=== PATIENT | male | born 1960 | race Caucasian/White ===

== ENCOUNTER → 2016-07-03 | Outpatient (CLI) | payer MEDICARE, OTHER ==
[~2016-07-03] MED LIST: ACYC1CAP8 PO; ASPI1TAB PO; ASPI32ECTA PO; ATOR1TAB18 PO; ATOR1TAB21 PO; CHLO25TA PO; COLA100C PO; D 202000 PO; DEXA4TA PO; DOCU100C PO; DOCU10CA PO; FAMC250T3 PO; FLUO0.0216 TOP; HYDR12.55 PO; LEVO100T5 PO; LEVO125T3 PO; MIDO10TA PO; MIDO25TA PO; MIRA3350 PO; MIRT30TA3 PO; MORP-38 PO; MORP100T40 PO; MULTCAP PO; OMEP20CA3 PO; ONDA1TAB16 PO; PROC10TA PO; REFR0.5D8 OU; REME15TA2 PO; ROXI1TAB2 PO; SENN-22 PO; SENN8.6C PO; SENN8.6T10 PO; SENN8.6T7 PO; SILD50TA PO; TRIA1CR TOP; VELC3.5I IV; VIAG100T PO; VITA10002 PO; VITA200038 PO; VITMTA PO; ZOFR8TAB PO; [UNRECOGNIZED DRUG - CODE] TOP; [UNRECOGNIZED DRUG - OTHER] PO; [UNRECOGNIZED DRUG - OTHER] PO
--- NOTE | 2016-07-03 16:16 | REP ---
Chest x-ray: Two views. History: Chills without fever. Amyloidosis . Comparison chest radiograph April 02, 2016. Findings: Chest radiograph demonstrates a minimal dextroconvex thoracic curvature. No paravertebral soft-tissue mass is seen. No other bony abnormality is observed. The lungs are well inflated and clear. The pleural angles are sharp. Heart size is normal. Pulmonary vasculature is not increased. Impression: No active disease. Signed by Juan Manuel Rebollar MD 07/03/2016 04:33 P
== END ==
LOC: M ADAMS 14:24
PROVIDERS: ATTEND Family Medicine
DX: E85.9 Amyloidosis, unspecified (principal); R68.83 Chills (without fever)

== ENCOUNTER → 2016-07-03 | Outpatient (CLI) | payer MEDICARE, BC, OTHER ==
[~2016-07-03] MED LIST changes: -COLA100C PO; +COLA100C3 PO
[2016-07-03 16:01] LABS: MEAN CORPUSCULAR HEMOGLOBIN 30.5 pg (27.0-33.0); MEAN CORPUSCULAR HGB CONC 32.5 g/dl (32.0-36.5); MEAN CORPUSCULAR VOLUME 93.7 fl (80.0-96.0); RED CELL DISTRIBUTION WIDTH 15.8 % (11.5-14.5)
[2016-07-03 16:19] LABS: INR 1.02
[2016-07-03 16:28] LABS: ALBUMIN 1.7 GM/DL (3.2-5.2); ALBUMIN/GLOBULIN RATIO 0.61 (1.00-1.93); ALKALINE PHOSPHATASE 427 U/L (45-117); ALT/SGPT 52 U/L (12-78); ANION GAP 3 MEQ/L (8-16); AST/SGOT 57 U/L (15-37); BILIRUBIN,TOTAL 0.3 MG/DL (0.2-1.0); BLOOD UREA NITROGEN 12 MG/DL (7-18); CARBON DIOXIDE LEVEL 34 MEQ/L (21-32); CHLORIDE LEVEL 105 MEQ/L (98-107); CHOLESTEROL LEVEL 193 MG/DL (<200); CREATININE FOR GFR 0.94 MG/DL (0.70-1.30); GLOMERULAR FILTRATION RATE > 60.0 (>56); GLUCOSE, FASTING 109 MG/DL (70-105); POTASSIUM SERUM 4.5 MEQ/L (3.5-5.1); SODIUM LEVEL 142 MEQ/L (136-145); TOTAL PROTEIN 4.5 GM/DL (6.4-8.2); TRIGLYCERIDES LEVEL 212 MG/DL (<150)
[2016-07-03 17:40] LABS: MICROSCOPIC INDICATED? MAN YES (NO)
[2016-07-03 17:43] LABS: BACTERIA, URINE NONE SEEN; SQUAMOUS EPITHELIAL CELL URINE SMALL AMOUNT /hpf (SMALL AMT)
[2016-07-03 17:44] LABS: MICROSCOPIC EXAM PERFORMED
== END ==
LOC: M LAB 15:03
PROVIDERS: ATTEND Family Medicine
DX: E85.9 Amyloidosis, unspecified (principal); R74.8 Abnormal levels of other serum enzymes; E13.29 Other specified diabetes mellitus with other diabetic kidney complication; E78.5 Hyperlipidemia, unspecified; R68.83 Chills (without fever); Z79.899 Other long term (current) drug therapy
CPT/HCPCS: 36415; 71020; 80053; 80061; 81000; 82306; 83036; 85027; 85610; 87040; 87086; G0463

== ENCOUNTER → 2016-07-03 | Outpatient (REF) | payer MEDICARE, OTHER ==
[~2016-07-03] MED LIST changes: +COLA100C PO; -COLA100C3 PO
== END ==
LOC: M SFHCADAM 13:45
PROVIDERS: ATTEND Family Medicine
DX: E85.9 Amyloidosis, unspecified (principal); R74.8 Abnormal levels of other serum enzymes; E13.29 Other specified diabetes mellitus with other diabetic kidney complication; E78.5 Hyperlipidemia, unspecified; E55.9 Vitamin D deficiency, unspecified; R68.83 Chills (without fever); Z53.8 Procedure and treatment not carried out for other reasons

== ENCOUNTER → 2016-07-22 | Outpatient (REF) | payer MEDICARE, OTHER ==
[~2016-07-22] MED LIST changes: -COLA100C PO; +COLA100C3 PO
[2016-07-22 12:33] LABS: ANION GAP 8 MEQ/L (8-16); BLOOD UREA NITROGEN 11 MG/DL (7-18); CALCIUM LEVEL 8.8 MG/DL (8.5-10.1); CARBON DIOXIDE LEVEL 29 MEQ/L (21-32); CHLORIDE LEVEL 105 MEQ/L (98-107); CREATININE FOR GFR 0.95 MG/DL (0.70-1.30); GLOMERULAR FILTRATION RATE > 60.0 (>56); GLUCOSE, FASTING 99 MG/DL (70-105); POTASSIUM SERUM 4.7 MEQ/L (3.5-5.1); SODIUM LEVEL 142 MEQ/L (136-145)
[2016-07-22 12:54] LABS: CORTISOL AM 6.4 UG/DL (4.3-22.4)
== END ==
LOC: M SFHCPLAZ 08:51
PROVIDERS: ATTEND Family Medicine
DX: E27.40 Unspecified adrenocortical insufficiency (principal)

== ENCOUNTER 2016-08-28 06:56 | Inpatient (IN) | payer MEDICARE, BC, OTHER ==
[~2016-08-28] VITALS: Ht 172.7 cm; Wt 66.2 kg
[2016-08-28] MEDS ORDERED: NS 1,000 ML IV ONE ×2 (07:15→19:15)
--- NOTE | 2016-08-28 08:12 | REP ---
Portable chest x-ray: Single view. History: Altered mental status. Comparison radiographs April 02, 2016. Findings: EKG monitoring electrodes overlie the chest. Lungs are well inflated and clear. Heart size is normal. Pulmonary vasculature is not increased. Pleural angles are sharp. No significant bony abnormality is seen. Impression: Negative portable chest x-ray. Signed by Juan Manuel Rebollar MD 08/28/2016 09:05 A
[2016-08-28 08:22] LABS: ABG BASE EXCESS -0.6 (-2.0-2.0); ABG HCO3 23.6 MEQ/L (22.0-26.0); ABG PARTIAL PRESSURE CO2 37.8 mmHg (35.0-45.0); ABG PARTIAL PRESSURE O2 84.4 mmHg (75.0-100.0); ABG STANDARD HCO3 23.9 MEQ/L (22.0-26.0); ABG TOTAL CO2 24.8 MEQ/L (22.0-29.0); ABG pH (ARTERIAL) 7.414 UNITS (7.350-7.450)
[2016-08-28 08:38] LABS: BASO % 0.2 % (0.0-1.0); EOS % 0.3 % (0.0-3.0); LARGE UNSTAINED CELL # 0.1 K/mm3 (0.0-0.4); LARGE UNSTAINED CELL % 0.8 % (0.0-4.0); LYMPH # 0.9 K/mm3 (1.5-4.5); LYMPH % 6.9 % (24.0-44.0); MEAN CORPUSCULAR HEMOGLOBIN 31.5 pg (27.0-33.0); MEAN CORPUSCULAR HGB CONC 33.1 g/dl (32.0-36.5); MEAN CORPUSCULAR VOLUME 95.3 fl (80.0-96.0); MONO # 0.4 K/mm3 (0.0-0.8); MONO % 3.4 % (0.0-5.0); NEUTROPHILS # 10.7 K/mm3 (1.8-7.7); NEUTROPHILS % 88.3 % (36.0-66.0); PLATELET COUNT, AUTOMATED 510 k/mm3 (150-450); RED CELL DISTRIBUTION WIDTH 15.8 % (11.5-14.5); WHITE BLOOD COUNT 12.1 K/mm3 (4.0-10.0)
[2016-08-28 08:54] LABS: ALBUMIN 1.1 GM/DL (3.2-5.2); ALBUMIN/GLOBULIN RATIO 0.29 (1.00-1.93); ALKALINE PHOSPHATASE 486 U/L (45-117); ALT/SGPT 69 U/L (12-78); ANION GAP 9 MEQ/L (8-16); AST/SGOT 58 U/L (15-37); BILIRUBIN,DIRECT 0.2 MG/DL (0.0-0.2); BILIRUBIN,TOTAL 0.4 MG/DL (0.2-1.0); BLOOD UREA NITROGEN 13 MG/DL (7-18); CALCIUM LEVEL 7.9 MG/DL (8.5-10.1); CARBON DIOXIDE LEVEL 27 MEQ/L (21-32); CHLORIDE LEVEL 107 MEQ/L (98-107); CREATININE FOR GFR 1.05 MG/DL (0.70-1.30); GLOMERULAR FILTRATION RATE > 60.0 (>56); GLUCOSE, FASTING 126 MG/DL (70-105); POTASSIUM SERUM 3.2 MEQ/L (3.5-5.1); SODIUM LEVEL 143 MEQ/L (136-145); TOTAL PROTEIN 4.9 GM/DL (6.4-8.2)
[2016-08-28] MEDS ORDERED: NS 500 ML IV ONE (09:00)
[2016-08-28] MEDS: FAMCICLOVIR 125 MG PO SCH ×2 (09:00→21:44)
--- NOTE | 2016-08-28 09:01 | REP ---
CT BRAIN WITHOUT CONTRAST: 08/28/2016. Comparison: MRI brain 03/03/2015. Clinical History: Altered mental status. Findings: Ventricles are midline, symmetric and the without dilatation or displacement. Basal ganglia symmetric and grossly normal. There are a few tiny calcifications which are benign findings in this age group. There is some mild atrophy with ventricular size proportionate. This is greater than I would expect for the given age. There are some subtle calcifications in the right cerebellar hemisphere corresponding to the developmental venous anomaly seen on the MRI in 2014. No cerebral or cerebellar mass, mass effect or acute infarct. No hemorrhage. No extra-axial fluid. Brainstem unremarkable. The skull base and calvarium show no fracture or focal lesion. Visualized sinuses and mastoids are clear. Impression: 1. Mild atrophy without evidence of acute infarct, hemorrhage, mass or mass effect. 2. Calcifications in the right cerebellar hemisphere corresponding to the developmental venous anomaly seen on previous MRI. 3. Sinuses, mastoids, skull base and calvarium intact. Basal cisterns preserved. Signed by Jt Zaman MD 08/28/2016 12:25 P
[2016-08-28] MEDS ORDERED: MEGE20TA PO (09:57)
[2016-08-28] MEDS ORDERED: ASPI1TAB PO (10:02)
[2016-08-28] MEDS ORDERED: PERCOCET 5MG/325MG TAB PO ONE (12:30)
[2016-08-28 13:01] VITALS: BP 77/50
[2016-08-28] MEDS: NS 1,000 ML IV SCH ×3 (13:36→21:36)
[2016-08-28] MEDS: SENOKOT S TAB PO SCH ×2 (13:36→22:06)
--- NOTE | 2016-08-28 13:58 | HPEPDOC ---
General Date of Admission August 28, 2016 at 11:19 Primary Care Physician: Keon Triplett MD Attending Physician: RONALDO BOSE MD Chief Complaint The patient is a 56-year-old male admitted with a reason for visit of Hypotension. Source: Patient Exam Limitations: No limitations Timing/Duration: 24 hours Severity: Moderate Associated Symptoms: Loss of appetite History of Present Illness This is a 56-year-old patient Dr. 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 In the ER, he was reportedly tachycardic a lactic acidosis, mild leukocytosis. His mentation and vital signs improved with 1.5 L of IV fluids, although the ER felt he needed further resuscitation and evaluation. Patient has been eating and drinking very poorly at home. He reports that he is on Remeron to help with his appetite, but this is minimally effective. He has not tried higher doses. He has plans to see a specialist in [place] next week. His only concern today is with left upper quadrant abdominal pain, which is similar to the last time he missed a dose of his narcotics. He states that he last stool 2 days ago. He denies any nausea, vomiting, diarrhea, fevers, or chills. He does endorse night sweats. At baseline , he is dependent on a wheelchair, and is very weak. Home Medications Scheduled Aspirin (Aspirin 81) 81 Mg Tab, 81 MG PO DAILY, (Reported) Atorvastatin Calcium (Atorvastatin Calcium) 80 Mg Tab, 80 MG PO QPM, (Reported) Cholecalciferol (Vitamin D-3) 2,000 Unit Tab, 2,000 UNIT PO DAILY, (Reported) Cyanocobalamin (Vitamin B-12) 1,000 Mcg Tab, 1,000 MCG PO DAILY, (Reported) Docusate Sodium (Colace) 100 Mg Cap, 100 MG PO BID, (Reported) Famciclovir (Famciclovir) 250 Mg Tab, 250 MG PO BID, (Reported) Levothyroxine Sodium (Synthroid) 125 Mcg Tab, 125 MCG PO DAILY, (Reported) Megestrol Acetate (Megestrol Acetate) 20 Mg Tab, 20 MG PO BID, (Reported) Midodrine HCl (Midodrine HCl) 10 Mg Tab, 10 MG PO TID, (Reported) Mirtazapine (Mirtazapine) 30 Mg Tab, 30 MG PO QHS, (Reported) Morphine Sulfate (Morphine Sulfate ER) 15 Mg Tab, 30 MG PO QAM, (Reported) Morphine Sulfate (Morphine Sulfate ER) 15 Mg Tab, 15 MG PO QPM, (Reported) Multivitamins *[facility] STOCKED* (Thera M Plus *[facility] STOCKED*) 1 Tab Tab, 1 TAB PO DAILY, (Reported) Omeprazole (Omeprazole) 20 Mg Cap, 20 MG PO BID, (Reported) Ondansetron HCl (Ondansetron HCl) 8 Mg Tab, 8 MG PO BID, (Reported) Senna (Senna Lax) 8.6 Mg Tab, 1 TAB PO QHS, (Reported) Scheduled PRN (Fluorouracil) 0.5 % Cre, 0.5 % TOP DAILY PRN for RASH/ITCHING, (Reported) APPLY TO HANDS AND ARMS (Mometasone Furoate) 0.1 % Cre, 0.1 % TOP DAILY PRN for RASH/ITCHING, (Reported ) APPLY TO HANDS AND ARMS Hydrochlorothiazide (Hydrochlorothiazide) 12.5 Mg Tab, 12.5 MG PO DAILY PRN for LEG SWELLING, (Reported) Oxycodone HCl (Roxicodone) 5 Mg Tab, 10 MG PO Q4H PRN for PAIN, (Reported) Polyethylene Glycol (Miralax) 1 Pow Pow, 17 GM PO BID PRN for CONSTIPATION, ( Reported) Prochlorperazine Maleate (Prochlorperazine Maleate) 10 Mg Tab, 10 MG PO Q6H PRN for NAUSEA OR VOMITING, (Reported) Triamcinolone Acet (Triamcinolone Acetonide 0.1% Crm) 1 Dose/15 Gm Cr, 0 TOP DAILY PRN for RASH, (Reported) APPLY TO HANDS AND ARMS Allergies Coded Allergies: No Known Drug Allergy (Unverified Allergy, Unknown, 07/14/12) Past Medical History Medical History 1. Amyloidosis, light chain type, status post high-dose chemotherapy and stem cell transplant 2. T2 DM 3. Hypertension 4. Chronic low back pain 5. Hyperlipidemia 6. Nephrotic syndrome 7. Grade 1 diastolic dysfunction Surgical History 1. L5-S1 fusion at [facility], 1999 2. Colonoscopy, 2010 3. EGD/colonoscopy, 2012 Family History Father: DM, CVA, ETOH Mother: DM SD 49y/o; had DM-related ESRD Maternal uncle: diabetes, type II Maternal aunt: diabetes, type II Social History * Smoker: non-smoker Alcohol: Denies Drugs: denies Recent Travel/Sick Contacts: Denies: Recent travel, Recent sick contacts Psychosocial History: No pertinent psych hx Review of Symptoms Constitutional: Reports: Malaise, Night Sweats, Weakness, Fatigue, Weight Loss , Denies: Chills, Fever ENT: Denies: Head Aches Skin: Denies: Rash Pulmonary: Denies: Dyspnea, Cough Cardiovascular: Denies: Chest Pain, Palpitations Gastrointestinal: Reports: Abdominal Pain, Denies: Nausea, Vomiting, Diarrhea, Constipation, Melena Genitourinary: Denies: Dysuria Hematologic: Denies: Bruising, Bleeding Excessively Musculoskeletal: Reports: Other Symptoms (chronic pain) Neurological: Denies: Weakness, Numbness, Change in speech, Confusion Psych: Reports: Mood Normal Physical Examination General Exam: Positive: Alert, Cooperative, No Acute Distress, Other (cachectic , chronically ill-appearing) Eye Exam: Positive: PERRLA, Conjunctiva & lids normal, Negative: Sclera icteric ENT Exam: Positive: Atraumatic, Mucous membr. moist/pink Neck Exam: Positive: Supple, +2 carotid pulse wo bruit, Negative: JVD, thyromegaly, Lymphadenopathy Chest Exam: Positive: Clear to auscultation, Normal air movement, Negative: Rales, Rhonchi, Wheezing Heart Exam: Positive: Rate Normal, Regular Rhythm, Normal S1, Normal S2, Negative: Murmurs Abdomen Exam: Positive: Normal bowel sounds, Soft, Tenderness (mild left upper quadrant tenderness without guarding or rebound), Negative: Mass, Hernia Extremity Exam: Negative: Clubbing, Cyanosis, Edema Skin Exam: Negative: Nl turgor and temperature (cool and with decreased turgor) , Rash Neuro Exam: Positive: Sensation Intact Psych Exam: Positive: Mental status NL, Mood NL (although somewhat agitated), Oriented x 3 Vital Signs Vital Signs Date Time Temp Pulse Resp B/P (MAP) Pulse Ox O2 Delivery O2 Flow Rate FiO2 08/28/16 12:55 97.8 120 18 88/53 (65) 96 08/28/16 07:20 Room Air Laboratory Data Labs 24H Laboratory Tests 2 08/28/16 07:04: Blood Gas Bicarbonate Standard 23.9, Arterial Blood pH 7.414, Arterial Blood Partial Pressure CO2 37.8, Arterial Blood Partial Pressure O2 84.4, Arterial Blood Total CO2 24.8, Arterial Blood HCO3 23.6, Arterial Blood Base Excess -0.6 , Arterial Blood Oxygen Saturation 96.1 08/28/16 08:09: Bedside Glucose (Misc Panel) 111H 08/28/16 08:10: White Blood Count 12.1H, Red Blood Count 4.52, Hemoglobin 14.2, Hematocrit 43.0 , Mean Corpuscular Volume 95.3, Mean Corpuscular Hemoglobin 31.5, Mean Corpuscular Hemoglobin Concent 33.1, Red Cell Distribution Width 15.8H, Platelet Count 510H, Neutrophils (%) (Auto) 88.3H, Lymphocytes (%) (Auto) 6.9L, Monocytes (%) (Auto) 3.4, Eosinophils (%) (Auto) 0.3, Basophils (%) (Auto) 0.2, Neutrophils # (Auto) 10.7H, Lymphocytes # (Auto) 0.9L, Monocytes # (Auto) 0.4, Eosinophils # (Auto) 0.0, Basophils # (Auto) 0.0, Large Unclassified Cells % 0.8 , Large Unclassified Cells # 0.1, Anion Gap 9, Glomerular Filtration Rate > 60.0 , Lactic Acid Level 3.0*H, Calcium Level 7.9L, Aspartate Amino Transf (AST/SGOT ) 58H, Alanine Aminotransferase (ALT/SGPT) 69, Alkaline Phosphatase 486H, Total Bilirubin 0.4, Direct Bilirubin 0.2, Ammonia 24, Total Protein 4.9L, Albumin 1.1L, Albumin/Globulin Ratio 0.29L, Thyroid Stimulating Hormone (TSH) 4.390H 08/28/16 12:31: Lactic Acid Followup at 4 Hours 1.7 CBC/BMP Laboratory Tests 08/28/16 08:10 Red Blood Count 4.52, Mean Corpuscular Volume 95.3, Mean Corpuscular Hemoglobin 31.5, Mean Corpuscular Hemoglobin Concent 33.1, Red Cell Distribution Width 15.8 H, Neutrophils (%) (Auto) 88.3 H, Lymphocytes (%) (Auto) 6.9 L, Monocytes ( %) (Auto) 3.4, Eosinophils (%) (Auto) 0.3, Basophils (%) (Auto) 0.2, Neutrophils # (Auto) 10.7 H, Lymphocytes # (Auto) 0.9 L, Monocytes # (Auto) 0.4 , Eosinophils # (Auto) 0.0, Basophils # (Auto) 0.0 Microbiology Microbiology 08/28/16 Blood Culture, Received Pending Assessment/Plan This is a 56-year-old gentleman seen by Dr. Triplett who presents with dehydration, lactic acidosis, tachycardia, and mild belly pain. Problems (1) Hypotension Status: Acute Problem Text: Patient is normally hypertensive, but was hypotensive prior to volume resuscitation. Patient is asymptomatic. Currently no signs or symptoms of sepsis. White count was mildly elevated, however this may be related to hemoconcentration, as lactate was 3.0 on an admission to the ER, and has now normalized. EKG on admission was unremarkable. Blood cultures are pending. Chest x-ray was unremarkable. Last echocardiogram was 2012, and was normal with the exception of mild diastolic dysfunction. - Patient admitted to [facility] for fluid resuscitation; if his blood pressures remain low or he becomes symptomatic, will transferred to the PCU -Aggressive volume resuscitation -Aggressive nutrition resuscitation (2) Dehydration Status: Acute Problem Text: See above (3) Hypertension Status: Chronic Problem Text: Blood pressures have normalized. Restart home blood pressure medications if patient's pressures begin to rise (4) Abdominal pain Status: Chronic Problem Text: Patient has had similar abdominal pain in the past. He is on a fairly aggressive bowel regimen for significant chronic narcotic use. His abdominal exam is quite benign, and there are no concerns at this time for surgical abdomen. Patient is afebrile. May be related to constipation secondary to chronic narcotics. -Bowel regimen -Consider KUB if not resolving -Fluid resuscitation (5) T2DM (type 2 diabetes mellitus) Status: Chronic Response to Treatment: Stable Problem Text: Currently nondiabetic medications. (6) Chronic pain disorder Status: Chronic Problem Text: Patient is on chronic opiates. 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 However, patient may be best served by getting into his specialist in [place]. (9) Severe protein-calorie malnutrition Problem Text: Dietary consult Plan / VTE VTE Prophylaxis Ordered?: Yes Plan Disposition Possibly home tomorrow if pressures are stable, abdominal pain is resolved RONALDO BOSE MD August 28, 2016 13:58
[2016-08-28] MEDS: ASPIRIN 81 MG ENTERIC TAB PO SCH (14:20)
[2016-08-28] MEDS: LEVOTHYROXINE 0.125 MG TAB (125 MCG) PO SCH (14:21)
[2016-08-28] MEDS: MIRALAX *UNIT DOSE* 17GM PACKET PO PRN ×2 (14:28→14:36)
[2016-08-28] MEDS: MORPHINE 15 MG SA TAB PO SCH ×2 (14:29→22:27)
[2016-08-28] MEDS: OMEPRAZOLE 20 MG CAP PO SCH ×2 (14:30→21:44)
[2016-08-28] MEDS: ONDANSETRON 4 MG TAB (S0181) PO SCH ×2 (14:30→21:45)
[2016-08-28] MEDS: MIDODRINE 5 MG TAB PO SCH ×2 (14:30→17:08)
[2016-08-28] MEDS: HEPARIN SOD (PORCINE) 5000 UNITS/ML VIAL SC SCH ×2 (14:31→22:00)
[2016-08-28] MEDS: oxyCODONE 5MG TAB PO PRN ×2 (17:08→21:10)
[2016-08-28] MEDS ORDERED: MIDODRINE 5 MG TAB PO SCH (18:00)
[2016-08-28 19:10] VITALS: BP 120/82
[2016-08-28] MEDS ORDERED: SENNA 8.6 MG TAB (SENOKOT) PO SCH (21:00)
[2016-08-28] MEDS: ATORVASTATIN 20 MG TAB PO SCH (21:44)
[2016-08-28 21:57] VITALS: BP 108/70
[2016-08-28 22:00] VITALS: BP 108/70
[2016-08-28] MEDS ORDERED: SENOKOT S TAB PO PRN (22:15)
[2016-08-28] MEDS: MIRTAZAPINE 15 MG TAB PO SCH (22:26)
[2016-08-29] VITALS (8 sets, daily range): BP systolic 93–135; BP diastolic 61–98
[2016-08-29] MEDS: oxyCODONE 5MG TAB PO PRN ×3 (04:16→18:08)
[2016-08-29] MEDS: NS 1,000 ML IV SCH ×3 (04:17→21:24)
[2016-08-29] MEDS: LEVOTHYROXINE 0.125 MG TAB (125 MCG) PO SCH (05:50)
[2016-08-29 06:08] LABS: BASO % 0.3 % (0.0-1.0); EOS % 0.4 % (0.0-3.0); LARGE UNSTAINED CELL # 0.2 K/mm3 (0.0-0.4); LARGE UNSTAINED CELL % 1.8 % (0.0-4.0); LYMPH # 1.4 K/mm3 (1.5-4.5); LYMPH % 11.2 % (24.0-44.0); MEAN CORPUSCULAR HEMOGLOBIN 31.2 pg (27.0-33.0); MEAN CORPUSCULAR HGB CONC 33.1 g/dl (32.0-36.5); MEAN CORPUSCULAR VOLUME 94.4 fl (80.0-96.0); MONO # 0.7 K/mm3 (0.0-0.8); NEUTROPHILS # 8.7 K/mm3 (1.8-7.7); NEUTROPHILS % 80.3 % (36.0-66.0); PLATELET COUNT, AUTOMATED 473 k/mm3 (150-450); WHITE BLOOD COUNT 10.8 K/mm3 (4.0-10.0)
[2016-08-29 06:26] LABS: ALBUMIN/GLOBULIN RATIO 0.33 (1.00-1.93); BILIRUBIN,TOTAL 0.2 MG/DL (0.2-1.0); CALCIUM LEVEL 7.1 MG/DL (8.5-10.1); CREATININE FOR GFR 1.32 MG/DL (0.70-1.30); GLOMERULAR FILTRATION RATE 59.7 (>56); POTASSIUM SERUM 3.9 MEQ/L (3.5-5.1)
--- NOTE | 2016-08-29 07:58 | ECGEPIP ---
Stationary ECG Study [facility] - ED Test Date: 2016-08-28 Pat Name: ADRIAN SETH Department: Room: - Gender: M Retail Leader: : 1960 Requested By: CHRISTINE Carter Order Number: [id number] Reading MD: Jessica Merida Measurements Intervals [place] Rate: 113 P: 71 NV: 203 QRS: 66 QRSD: 82 T: 52 QT: 331 QTc: 455 Interpretive Statements SINUS TACHYCARDIA MER DEGREE AV BLOCK NONSPECIFIC T-WAVE ABNORMALITY ABNORMAL RHYTHM ECG INCREASED RATE 06/03/15 Electronically Signed On 08-29-2016 7:58:46 EDT by Jessica Merida
--- NOTE | 2016-08-29 08:14 | IPNPDOC ---
Subjective Date Seen The patient was seen on 08/29/16. Subjective Chief Complaint/HPI The patient is a 56-year-old male admitted with a reason for visit of Hypotension. Events since last encounter patient feels not putting out enough urine. 200 cc in last 12 hours. Cr is elevated. c/o weakness. Constitutional: Denies: Chills, Fever, Night Sweats ENT: Denies: Head Aches, Ear Pain, Dysphagia Skin: Denies: Rash, Lesions, Breakdown Pulmonary: Denies: Dyspnea, Cough Gastrointestinal: Denies: Nausea, Vomiting, Abdominal Pain, Diarrhea, Constipation Genitourinary: Denies: Dysuria, Frequency, Incontinence, Retention Psych: Reports: Mood Normal, Denies: Depression, Memory Issues Objective Physical Examination General Exam: Positive: Alert, Cooperative, No Acute Distress, Other (cachectic , chronically ill-appearing) Eye Exam: Positive: PERRLA, Conjunctiva & lids normal, Negative: Sclera icteric ENT Exam: Positive: Atraumatic, Mucous membr. moist/pink Neck Exam: Positive: Supple, +2 carotid pulse wo bruit, Negative: JVD, thyromegaly, Lymphadenopathy Chest Exam: Positive: Clear to auscultation, Normal air movement, Negative: Rales, Rhonchi, Wheezing Heart Exam: Positive: Rate Normal, Regular Rhythm, Normal S1, Normal S2, Negative: Murmurs Abdomen Exam: Positive: Normal bowel sounds, Soft, Tenderness (mild left upper quadrant tenderness without guarding or rebound), Negative: Mass, Hernia Extremity Exam: Negative: Clubbing, Cyanosis, Edema Skin Exam: Negative: Nl turgor and temperature (cool and with decreased turgor) , Rash Neuro Exam: Positive: Sensation Intact Psych Exam: Positive: Mental status NL, Mood NL (although somewhat agitated), Oriented x 3 Assessment /Plan Problems (1) Hypotension Status: Acute Problem Text: 08/29/2016: Manual BP 70-80/40. 1 liter bolus of normal saline ordered. monitor BP q 1 hr. Patient is normally hypertensive, but was hypotensive prior to volume resuscitation. Patient is asymptomatic. Currently no signs or symptoms of sepsis. White count was mildly elevated, however this may be related to hemoconcentration, as lactate was 3.0 on an admission to the ER, and has now normalized. EKG on admission was unremarkable. Blood cultures are pending. Chest x-ray was unremarkable. Last echocardiogram was 2012, and was normal with the exception of mild diastolic dysfunction. - Patient admitted to [facility] for fluid resuscitation; if his blood pressures remain low or he becomes symptomatic, will transferred to the PCU -Aggressive volume resuscitation -Aggressive nutrition resuscitation (2) Dehydration Status: Acute Problem Text: See above (3) Hypertension Status: Chronic Problem Text: Blood pressures have normalized. Restart home blood pressure medications if patient's pressures begin to rise (4) Abdominal pain Status: Chronic Problem Text: Patient has had similar abdominal pain in the past. He is on a fairly aggressive bowel regimen for significant chronic narcotic use. His abdominal exam is quite benign, and there are no concerns at this time for surgical abdomen. Patient is afebrile. May be related to constipation secondary to chronic narcotics. -Bowel regimen -Consider KUB if not resolving -Fluid resuscitation (5) T2DM (type 2 diabetes mellitus) Status: Chronic Response to Treatment: Stable Problem Text: Currently nondiabetic medications. (6) Chronic pain disorder Status: Chronic Problem Text: Patient is on chronic opiates. 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 However, patient may be best served by getting into his specialist in [place]. (9) Severe protein-calorie malnutrition Problem Text: Dietary consult Plan/VTE VTE Prophylaxis Ordered?: Yes VS, I&O, 24H, Fishbone Vital Signs/I&O Vital Signs Date Time Temp Pulse Resp B/P (MAP) Pulse Ox O2 Delivery O2 Flow Rate FiO2 08/29/16 06:00 98.3 91 18 93/61 (72) 94 Room Air I&O- Last 24 Hours up to 6 AM 08/29/16 06:00 Intake Total 4430 ml Output Total 200 ml Balance 4230 ml Laboratory Data 24H LABS Laboratory Tests 2 08/28/16 08:10: White Blood Count 12.1H, Red Blood Count 4.52, Hemoglobin 14.2, Hematocrit 43.0 , Mean Corpuscular Volume 95.3, Mean Corpuscular Hemoglobin 31.5, Mean Corpuscular Hemoglobin Concent 33.1, Red Cell Distribution Width 15.8H, Platelet Count 510H, Neutrophils (%) (Auto) 88.3H, Lymphocytes (%) (Auto) 6.9L, Monocytes (%) (Auto) 3.4, Eosinophils (%) (Auto) 0.3, Basophils (%) (Auto) 0.2, Neutrophils # (Auto) 10.7H, Lymphocytes # (Auto) 0.9L, Monocytes # (Auto) 0.4, Eosinophils # (Auto) 0.0, Basophils # (Auto) 0.0, Large Unclassified Cells % 0.8 , Large Unclassified Cells # 0.1, Anion Gap 9, Glomerular Filtration Rate > 60.0 , Lactic Acid Level 3.0*H, Calcium Level 7.9L, Aspartate Amino Transf (AST/SGOT ) 58H, Alanine Aminotransferase (ALT/SGPT) 69, Alkaline Phosphatase 486H, Total Bilirubin 0.4, Direct Bilirubin 0.2, Ammonia 24, Total Protein 4.9L, Albumin 1.1L, Albumin/Globulin Ratio 0.29L, Thyroid Stimulating Hormone (TSH) 4.390H 08/28/16 12:31: Lactic Acid Followup at 4 Hours 1.7 08/29/16 05:43: White Blood Count 10.8H, Red Blood Count 3.61L, Hemoglobin 11.3#L, Hematocrit 34.1L, Mean Corpuscular Volume 94.4, Mean Corpuscular Hemoglobin 31.2, Mean Corpuscular Hemoglobin Concent 33.1, Red Cell Distribution Width 16.0H, Platelet Count 473H, Neutrophils (%) (Auto) 80.3H, Lymphocytes (%) (Auto) 11.2L , Monocytes (%) (Auto) 6.0H, Eosinophils (%) (Auto) 0.4, Basophils (%) (Auto) 0.3, Neutrophils # (Auto) 8.7H, Lymphocytes # (Auto) 1.4L, Monocytes # (Auto) 0.7, Eosinophils # (Auto) 0.0, Basophils # (Auto) 0.0, Large Unclassified Cells % 1.8, Large Unclassified Cells # 0.2, Anion Gap 6L, Glomerular Filtration Rate 59.7, Calcium Level 7.1L, Aspartate Amino Transf (AST/SGOT) 57H, Alanine Aminotransferase (ALT/SGPT) 64, Alkaline Phosphatase 376H, Total Bilirubin 0.2, Total Protein 4.0L, Albumin 1.0L, Albumin/Globulin Ratio 0.33L, Blood Urea Nitrogen 16, Creatinine 1.32H, Sodium Level 144, Potassium Level 3.9#, Chloride Level 110H, Carbon Dioxide Level 28 CBC/BMP Laboratory Tests 08/28/16 08:10 Red Blood Count 4.52, Mean Corpuscular Volume 95.3, Mean Corpuscular Hemoglobin 31.5, Mean Corpuscular Hemoglobin Concent 33.1, Red Cell Distribution Width 15.8 H, Neutrophils (%) (Auto) 88.3 H, Lymphocytes (%) (Auto) 6.9 L, Monocytes ( %) (Auto) 3.4, Eosinophils (%) (Auto) 0.3, Basophils (%) (Auto) 0.2, Neutrophils # (Auto) 10.7 H, Lymphocytes # (Auto) 0.9 L, Monocytes # (Auto) 0.4 , Eosinophils # (Auto) 0.0, Basophils # (Auto) 0.0 08/29/16 05:43 Red Blood Count 3.61 L, Mean Corpuscular Volume 94.4, Mean Corpuscular Hemoglobin 31.2, Mean Corpuscular Hemoglobin Concent 33.1, Red Cell Distribution Width 16.0 H, Neutrophils (%) (Auto) 80.3 H, Lymphocytes (%) (Auto ) 11.2 L, Monocytes (%) (Auto) 6.0 H, Eosinophils (%) (Auto) 0.4, Basophils (%) (Auto) 0.3, Neutrophils # (Auto) 8.7 H, Lymphocytes # (Auto) 1.4 L, Monocytes # (Auto) 0.7, Eosinophils # (Auto) 0.0, Basophils # (Auto) 0.0, Calcium Level 7.1 L, Aspartate Amino Transf (AST/SGOT) 57 H, Alanine Aminotransferase (ALT/SGPT) 64, Alkaline Phosphatase 376 H, Total Bilirubin 0.2, Total Protein 4.0 L, Albumin 1.0 L Microbiology Microbiology 08/28/16 Blood Culture, Received Pending Hallie Carl [facility] August 29, 2016 08:14
[2016-08-29] MEDS ORDERED: NS 1,000 ML IV ONE (08:15)
[2016-08-29] MEDS: ENOXAPARIN 40 MG/0.4 ML SYRINGE (J1650) SC SCH (08:57)
[2016-08-29] MEDS: FAMCICLOVIR 125 MG PO SCH ×2 (08:58→21:17)
[2016-08-29] MEDS: ONDANSETRON 4 MG TAB (S0181) PO SCH ×2 (08:58→21:20)
[2016-08-29] MEDS: MORPHINE 15 MG SA TAB PO SCH ×2 (08:59→21:19)
[2016-08-29] MEDS: MIDODRINE 5 MG TAB PO SCH ×3 (08:59→18:05)
[2016-08-29] MEDS: OMEPRAZOLE 20 MG CAP PO SCH ×2 (09:00→21:18)
[2016-08-29] MEDS: ASPIRIN 81 MG ENTERIC TAB PO SCH (09:00)
[2016-08-29] MEDS: PROCHLORPERAZINE 5 MG TAB (S0183) PO PRN (14:56)
[2016-08-29] MEDS: ATORVASTATIN 20 MG TAB PO SCH (21:15)
[2016-08-29] MEDS: MIRTAZAPINE 15 MG TAB PO SCH (21:16)
[2016-08-30 01:05] VITALS: BP 143/92
[2016-08-30] MEDS: NS 1,000 ML IV SCH ×2 (03:55→10:13)
[2016-08-30] MEDS: oxyCODONE 5MG TAB PO PRN ×2 (03:56→12:20)
[2016-08-30 04:42] VITALS: BP 129/69
[2016-08-30 05:09] LABS: BASO % 0.3 % (0.0-1.0); EOS # 0.1 K/mm3 (0.0-0.50); EOS % 0.5 % (0.0-3.0); LARGE UNSTAINED CELL # 0.2 K/mm3 (0.0-0.4); LARGE UNSTAINED CELL % 1.8 % (0.0-4.0); LYMPH # 1.7 K/mm3 (1.5-4.5); LYMPH % 15.8 % (24.0-44.0); MEAN CORPUSCULAR HEMOGLOBIN 31.1 pg (27.0-33.0); MEAN CORPUSCULAR HGB CONC 32.2 g/dl (32.0-36.5); MEAN CORPUSCULAR VOLUME 96.8 fl (80.0-96.0); MONO # 0.6 K/mm3 (0.0-0.8); MONO % 5.6 % (0.0-5.0); NEUTROPHILS # 8.1 K/mm3 (1.8-7.7); PLATELET COUNT, AUTOMATED 493 k/mm3 (150-450); RED CELL DISTRIBUTION WIDTH 15.8 % (11.5-14.5); WHITE BLOOD COUNT 10.7 K/mm3 (4.0-10.0)
[2016-08-30 05:24] LABS: ALBUMIN/GLOBULIN RATIO 0.31 (1.00-1.93); ALKALINE PHOSPHATASE 419 U/L (45-117); ALT/SGPT 72 U/L (12-78); ANION GAP 4 MEQ/L (8-16); AST/SGOT 74 U/L (15-37); BILIRUBIN,TOTAL 0.1 MG/DL (0.2-1.0); BLOOD UREA NITROGEN 13 MG/DL (7-18); CARBON DIOXIDE LEVEL 28 MEQ/L (21-32); CHLORIDE LEVEL 112 MEQ/L (98-107); CREATININE FOR GFR 1.08 MG/DL (0.70-1.30); GLOMERULAR FILTRATION RATE > 60.0 (>56); GLUCOSE, FASTING 72 MG/DL (70-105); SODIUM LEVEL 144 MEQ/L (136-145); TOTAL PROTEIN 4.2 GM/DL (6.4-8.2)
[2016-08-30] MEDS: PROCHLORPERAZINE 5 MG TAB (S0183) PO PRN (07:00)
[2016-08-30] MEDS: LEVOTHYROXINE 0.125 MG TAB (125 MCG) PO SCH (07:00)
[2016-08-30 08:00] VITALS: BP 140/78
[2016-08-30] MEDS: ENOXAPARIN 40 MG/0.4 ML SYRINGE (J1650) SC SCH (08:11)
[2016-08-30] MEDS: OMEPRAZOLE 20 MG CAP PO SCH (08:12)
[2016-08-30] MEDS: ASPIRIN 81 MG ENTERIC TAB PO SCH (08:12)
[2016-08-30] MEDS: FAMCICLOVIR 125 MG PO SCH (08:12)
[2016-08-30] MEDS: MIDODRINE 5 MG TAB PO SCH ×2 (08:12→12:23)
[2016-08-30] MEDS: ONDANSETRON 4 MG TAB (S0181) PO SCH (08:13)
[2016-08-30] MEDS: MORPHINE 15 MG SA TAB PO SCH (08:13)
--- NOTE | 2016-08-30 10:54 | IPNPDOC ---
Subjective Date Seen The patient was seen on 08/30/16. Subjective Chief Complaint/HPI The patient is a 56-year-old male admitted with a reason for visit of Hypotension. Events since last encounter Blood pressures improving. Continues with weakness. Feels unready top go home. has an epuisode of diarrhea last night. Constitutional: Reports: Weakness, Fatigue, Denies: Chills, Fever, Night Sweats ENT: Denies: Head Aches, Ear Pain, Dysphagia Cardiovascular: Denies: Chest Pain, Palpitations, Orthopnea, Paroxysmal Noc. Dyspnea, Lt Headedness Gastrointestinal: Reports: Diarrhea Genitourinary: Denies: Dysuria, Frequency, Incontinence, Retention Psych: Reports: Mood Normal, Denies: Depression, Memory Issues Objective Physical Examination General Exam: Positive: Alert, Cooperative, No Acute Distress, Other (cachectic , chronically ill-appearing) Eye Exam: Positive: PERRLA, Conjunctiva & lids normal, Negative: Sclera icteric ENT Exam: Positive: Atraumatic, Mucous membr. moist/pink Neck Exam: Positive: Supple, +2 carotid pulse wo bruit, Negative: JVD, thyromegaly, Lymphadenopathy Chest Exam: Positive: Clear to auscultation, Normal air movement, Negative: Rales, Rhonchi, Wheezing Heart Exam: Positive: Rate Normal, Regular Rhythm, Normal S1, Normal S2, Negative: Murmurs Abdomen Exam: Positive: Normal bowel sounds, Soft, Tenderness (mild left upper quadrant tenderness without guarding or rebound), Negative: Mass, Hernia Extremity Exam: Negative: Clubbing, Cyanosis, Edema Skin Exam: Negative: Nl turgor and temperature (cool and with decreased turgor) , Rash Neuro Exam: Positive: Sensation Intact Psych Exam: Positive: Mental status NL, Mood NL (although somewhat agitated), Oriented x 3 Assessment /Plan Problems (1) Hypotension Status: Acute Problem Text: 08/30/2016: Improved BPs noted. Continue IVF at 150 cc per hour. 08/29/2016: Manual BP 70-80/40. 1 liter bolus of normal saline ordered. monitor BP q 1 hr. Patient is normally hypertensive, but was hypotensive prior to volume resuscitation. Patient is asymptomatic. Currently no signs or symptoms of sepsis. White count was mildly elevated, however this may be related to hemoconcentration, as lactate was 3.0 on an admission to the ER, and has now normalized. EKG on admission was unremarkable. Blood cultures are pending. Chest x-ray was unremarkable. Last echocardiogram was 2012, and was normal with the exception of mild diastolic dysfunction. - Patient admitted to [facility] for fluid resuscitation; if his blood pressures remain low or he becomes symptomatic, will transferred to the PCU -Aggressive volume resuscitation -Aggressive nutrition resuscitation (2) Dehydration Status: Acute Problem Text: See above (3) Hypertension Status: Chronic Problem Text: Blood pressures have normalized. Restart home blood pressure medications if patient's pressures begin to rise (4) Abdominal pain Status: Chronic Problem Text: Patient has had similar abdominal pain in the past. He is on a fairly aggressive bowel regimen for significant chronic narcotic use. His abdominal exam is quite benign, and there are no concerns at this time for surgical abdomen. Patient is afebrile. May be related to constipation secondary to chronic narcotics. -Bowel regimen -Consider KUB if not resolving -Fluid resuscitation (5) T2DM (type 2 diabetes mellitus) Status: Chronic Response to Treatment: Stable Problem Text: Currently nondiabetic medications. (6) Chronic pain disorder Status: Chronic Problem Text: Patient is on chronic opiates. 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 However, patient may be best served by getting into his specialist in [place]. (9) Severe protein-calorie malnutrition Problem Text: Dietary consult Plan/VTE VTE Prophylaxis Ordered?: Yes Plan IVF: Continue Anticipated Discharge: Home Attending note: I saw and evaluated the patient, and I agree with the plan of care as discussed and documented by Juliet Carl. Patient's blood pressures have stabilized, however patient continues to have generalized abdominal pain. Currently without surgical abdomen, fevers, nausea, or vomiting. Patient feels uncomfortable going home. Would recommend ambulating, escalating bowel care, and will plan for discharge tomorrow. Patient declined further bowel meds, and wanted to try "yogurt." He states that this generally works for him. Ino Bose MD VS, I&O, 24H, Fishbone Vital Signs/I&O Vital Signs Date Time Temp Pulse Resp B/P (MAP) Pulse Ox O2 Delivery O2 Flow Rate FiO2 08/30/16 08:13 18 Room Air 08/30/16 08:00 97.8 104 140/78 (98) 94 I&O- Last 24 Hours up to 6 AM 08/30/16 06:00 Intake Total 6345 ml Output Total 350 ml Balance 5995 ml Laboratory Data 24H LABS Laboratory Tests 2 08/30/16 04:29: White Blood Count 10.7H, Red Blood Count 3.68L, Hemoglobin 11.4L, Hematocrit 35.6L, Mean Corpuscular Volume 96.8H, Mean Corpuscular Hemoglobin 31.1, Mean Corpuscular Hemoglobin Concent 32.2, Red Cell Distribution Width 15.8H, Platelet Count 493H, Neutrophils (%) (Auto) 76.0H, Lymphocytes (%) (Auto) 15.8L , Monocytes (%) (Auto) 5.6H, Eosinophils (%) (Auto) 0.5, Basophils (%) (Auto) 0.3, Neutrophils # (Auto) 8.1H, Lymphocytes # (Auto) 1.7, Monocytes # (Auto) 0.6 , Eosinophils # (Auto) 0.1, Basophils # (Auto) 0.0, Large Unclassified Cells % 1.8, Large Unclassified Cells # 0.2, Anion Gap 4L, Glomerular Filtration Rate > 60.0, Blood Urea Nitrogen 13, Creatinine 1.08, Sodium Level 144, Potassium Level 4.0, Chloride Level 112H, Carbon Dioxide Level 28, Calcium Level 7.0L, Aspartate Amino Transf (AST/SGOT) 74H, Alanine Aminotransferase (ALT/SGPT) 72, Alkaline Phosphatase 419H, Total Bilirubin 0.1L, Total Protein 4.2L, Albumin 1.0L, Albumin/Globulin Ratio 0.31L CBC/BMP Laboratory Tests 08/30/16 04:29 Red Blood Count 3.68 L, Mean Corpuscular Volume 96.8 H, Mean Corpuscular Hemoglobin 31.1, Mean Corpuscular Hemoglobin Concent 32.2, Red Cell Distribution Width 15.8 H, Neutrophils (%) (Auto) 76.0 H, Lymphocytes (%) (Auto ) 15.8 L, Monocytes (%) (Auto) 5.6 H, Eosinophils (%) (Auto) 0.5, Basophils (%) (Auto) 0.3, Neutrophils # (Auto) 8.1 H, Lymphocytes # (Auto) 1.7, Monocytes # ( Auto) 0.6, Eosinophils # (Auto) 0.1, Basophils # (Auto) 0.0, Calcium Level 7.0 L , Aspartate Amino Transf (AST/SGOT) 74 H, Alanine Aminotransferase (ALT/SGPT) 72 , Alkaline Phosphatase 419 H, Total Bilirubin 0.1 L, Total Protein 4.2 L, Albumin 1.0 L Microbiology Microbiology 08/28/16 Blood Culture - Preliminary, Resulted No growth after 24 hours . All specim... Hallie Carl August 30, 2016 10:54 INO BOSE MD August 30, 2016 13:19
[2016-08-30 12:00] VITALS: BP 114/83
[2016-08-30] MEDS ORDERED: SLF 3 ML SYR IV PRN (13:15)
[2016-08-30] MEDS ORDERED: SLF 3 ML SYR IV SCH (14:00)
--- NOTE | 2016-09-21 14:08 | DS.PDOC ---
Discharge Summary General Date of Admission August 29, 2016 at 13:15 Date of Discharge 08/30/2016 Primary Care Physician: Keon Triplett MD Attending Physician: INO SAXENA MD Discharge Summary PROCEDURES PERFORMED DURING STAY: None. ADMITTING DIAGNOSES: 1. Hypotension 2. Nausea, vomiting, diarrhea 3. Hypovolemia 4. Essential Hypertension 5. Abdominal pain 6. Type 2 diabetes 7. Chronic pain disorder 8. Hyperlipidemia 9. Nephrotic syndrome associated with amyloidosis 10. Severe protein Malnutrition DISCHARGE DIAGNOSES: 1. Hypotension, resolved 2. Viral gastroenteritis, resolved 3. Hypovolemia, resolved 4. Essential Hypertension 5. Abdominal pain, chronic 6. Type 2 diabetes 7. Chronic pain disorder 8. Hyperlipidemia 9. Nephrotic syndrome associated with amyloidosis 10. Severe protein Malnutrition COMPLICATIONS/CHIEF COMPLAINT: Hypotension. HISTORY OF PRESENT ILLNESS/Hospital Course: This is a 56-year-old patient Dr. 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 He was admitted for tachycardia, hypovolemia, and lactic acidosis. His vital signs and lactic acidosis improved with IV fluid resuscitation. On the day of discharge, his vital signs were stable, his lactic acidosis is resolved, and he had no signs or symptoms of infection. He was tolerating a diet and drinking. He reported no further GI symptoms. He was discharged with planned follow-up to Dr. Triplett. DISCHARGE MEDICATIONS: Please see below. ALLERGIES: Please see below. PHYSICAL EXAMINATION ON DISCHARGE: General Exam: Alert, No Acute Distress, cachectic, chronically ill-appearing HEENT: Sclerae clear, moist mucous membranes Neck Exam: No JVD, no thyromegaly Chest Exam: Clear bilaterally to auscultation, no wheezes, no rales, no rhonchi , normal work of breathing Heart Exam: Regular rate and rhythm, S1, S2, no murmurs, no rubs, no callus, no heave Abdomen Exam: Nondistended, soft, nontender, + bowel sounds Extremity Exam: No clubbing, cyanosis, or edema Skin Exam: Warm and dry Neuro Exam: Conversant, alert and oriented 3 Psych Exam: Normal mood and affect LABORATORY DATA: Please see below. IMAGING: Chest x-ray: Negative portable chest x-ray CT head: Mild age 50 without evidence of acute infarct, hemorrhage, mass, or mass effect; calcifications of the right cerebellar hemisphere course by the development of venous abnormally seen on previous MRI PROGNOSIS: Good ACTIVITY: As tolerated. DIET: Carb consistent DISCHARGE PLAN: Discharged to home DISPOSITION: 01 Home, Self-Care. DISCHARGE INSTRUCTIONS: 1. Patient instructed to maintain fluids 2. Follow-up care to Dr. Triplett in 1-2 days ITEMS TO FOLLOWUP ON ON OUTPATIENT: 1. Patient to see subspecialist in [place]; will need to review recommendations DISCHARGE CONDITION: Stable. TIME SPENT ON DISCHARGE: Less than 30 minutes. Ino Saxena MD Discharge Medications Scheduled Aspirin (Aspirin 81) 81 Mg Tab, 81 MG PO DAILY, (Reported) Atorvastatin Calcium (Atorvastatin Calcium) 80 Mg Tab, 80 MG PO QPM, (Reported) Cholecalciferol (Vitamin D-3) 2,000 Unit Tab, 2,000 UNIT PO DAILY, (Reported) Cyanocobalamin (Vitamin B-12) 1,000 Mcg Tab, 1,000 MCG PO DAILY, (Reported) Docusate Sodium (Colace) 100 Mg Cap, 100 MG PO BID, (Reported) Famciclovir (Famciclovir) 250 Mg Tab, 250 MG PO BID, (Reported) Levothyroxine Sodium (Synthroid) 125 Mcg Tab, 125 MCG PO DAILY, (Reported) Megestrol Acetate (Megestrol Acetate) 20 Mg Tab, 20 MG PO BID, (Reported) Midodrine HCl (Midodrine HCl) 10 Mg Tab, 10 MG PO TID, (Reported) Mirtazapine (Mirtazapine) 30 Mg Tab, 30 MG PO QHS, (Reported) Morphine Sulfate (Morphine Sulfate ER) 15 Mg Tab, 30 MG PO QAM, (Reported) Morphine Sulfate (Morphine Sulfate ER) 15 Mg Tab, 15 MG PO QPM, (Reported) Multivitamins *[facility] STOCKED* (Thera M Plus *[facility] STOCKED*) 1 Tab Tab, 1 TAB PO DAILY, (Reported) Omeprazole (Omeprazole) 20 Mg Cap, 20 MG PO BID, (Reported) Ondansetron HCl (Ondansetron HCl) 8 Mg Tab, 8 MG PO BID, (Reported) Senna (Senna Lax) 8.6 Mg Tab, 1 TAB PO QHS, (Reported) Scheduled PRN (Fluorouracil) 0.5 % Cre, 0.5 % TOP DAILY PRN for RASH/ITCHING, (Reported) APPLY TO HANDS AND ARMS (Mometasone Furoate) 0.1 % Cre, 0.1 % TOP DAILY PRN for RASH/ITCHING, (Reported ) APPLY TO HANDS AND ARMS Hydrochlorothiazide (Hydrochlorothiazide) 12.5 Mg Tab, 12.5 MG PO DAILY PRN for LEG SWELLING, (Reported) Oxycodone HCl (Roxicodone) 5 Mg Tab, 10 MG PO Q4H PRN for PAIN, (Reported) Polyethylene Glycol (Miralax) 1 Pow Pow, 17 GM PO BID PRN for CONSTIPATION, ( Reported) Prochlorperazine Maleate (Prochlorperazine Maleate) 10 Mg Tab, 10 MG PO Q6H PRN for NAUSEA OR VOMITING, (Reported) Triamcinolone Acet (Triamcinolone Acetonide 0.1% Crm) 1 Dose/15 Gm Cr, 0 TOP DAILY PRN for RASH, (Reported) APPLY TO HANDS AND ARMS Allergies Coded Allergies: No Known Drug Allergy (Unverified Allergy, Unknown, 07/14/12) INO SAXENA MD Sep 21, 2016 14:08
== END 2016-08-30 16:40 | disposition home or self-care (01) | DRG 640 ==
LOC: EDBD 06:56 → M ED 07:53 → M ED INP 11:19 → M MSPAV 13:02 → M ED INP 13:15 → M PCU 08-29 09:23 → OBSVTOIN 08-29 13:15
PROVIDERS: ADMIT Family Medicine; ATTEND Family Medicine
DX: E86.0 Dehydration (principal); E43 Unspecified severe protein-calorie malnutrition; E85.9 Amyloidosis, unspecified; N04.9 Nephrotic syndrome with unspecified morphologic changes; E78.5 Hyperlipidemia, unspecified; A08.8 Other specified intestinal infections; E11.9 Type 2 diabetes mellitus without complications; E86.1 Hypovolemia; G89.29 Other chronic pain; R10.9 Unspecified abdominal pain; Z79.899 Other long term (current) drug therapy; Z79.82 Long term (current) use of aspirin; I10 Essential (primary) hypertension; M54.5 Low back pain; I95.9 Hypotension, unspecified

== ENCOUNTER → 2016-10-14 | Outpatient (REF) | payer MEDICARE, OTHER ==
[~2016-10-14] MED LIST changes: -ACYC1CAP8 PO; +ACYC200C8 PO; +ASPI325T24 PO; -ASPI32ECTA PO; -ATOR1TAB18 PO; +ATOR80TA59 PO; +CLOT1CRE71 TOP; -COLA100C3 PO; +COLA100C5 PO; -DOCU100C PO; +DOCU100C16 PO; +DRON2.5C4 PO; +FIRS1SOL3 PO; +LASI20TA PO; -LEVO125T3 PO; +LEVO125T4 PO; +MEGE20TA3 PO; +MIDO2.5T PO; -MIDO25TA PO; +MOME0.1C3 TOP; +MORP1CAP48 PO; +NYST10CR EXT; -ONDA1TAB16 PO; +ONDA8TAB7 PO; +RISATAB3 PO; +SENN1TAB10 PO; -SENN8.6T10 PO; -[UNRECOGNIZED DRUG - CODE] TOP
[2016-10-14 21:00] LABS: ALBUMIN 1.6 GM/DL (3.2-5.2); ALBUMIN/GLOBULIN RATIO 0.57 (1.00-1.93); ALKALINE PHOSPHATASE 515 U/L (45-117); ALT/SGPT 37 U/L (12-78); ANION GAP 8 MEQ/L (8-16); AST/SGOT 35 U/L (15-37); BILIRUBIN,TOTAL 0.3 MG/DL (0.2-1.0); BLOOD UREA NITROGEN 9 MG/DL (7-18); CALCIUM LEVEL 7.9 MG/DL (8.5-10.1); CARBON DIOXIDE LEVEL 29 MEQ/L (21-32); CHLORIDE LEVEL 105 MEQ/L (98-107); CREATININE FOR GFR 0.92 MG/DL (0.70-1.30); FREE T4 1.25 NG/DL (0.76-1.46); GLOMERULAR FILTRATION RATE > 60.0 (>56); GLUCOSE, FASTING 74 MG/DL (70-105); POTASSIUM SERUM 4.4 MEQ/L (3.5-5.1); SODIUM LEVEL 142 MEQ/L (136-145); TOTAL PROTEIN 4.4 GM/DL (6.4-8.2)
== END ==
LOC: M SFHCPLAZ 11:26
PROVIDERS: ATTEND Family Medicine
DX: E85.4 Organ-limited amyloidosis (principal); Z94.84 Stem cells transplant status; I43 Cardiomyopathy in diseases classified elsewhere; E03.9 Hypothyroidism, unspecified

== ENCOUNTER 2016-12-13 11:22 | Inpatient (IN) | payer MEDICARE, BC, OTHER ==
[2016-12-13] MEDS: ENOXAPARIN 40 MG/0.4 ML SYRINGE (J1650) SC SCH (09:00)
[~2016-12-13 11:22] MED LIST changes: -CLOT1CRE71 TOP; -DRON2.5C4 PO; -FIRS1SOL3 PO; -LASI20TA PO; -MORP1CAP48 PO; -NYST10CR EXT; -RISATAB3 PO
[2016-12-13] MEDS ORDERED: LASI20TA PO (11:40)
[2016-12-13] MEDS ORDERED: NS 1,000 ML IV ONE (11:45)
[2016-12-13] MEDS ORDERED: NS 1,910 ML in APPROPRIATE DILUENT 1 EA IV ONE (12:00)
[2016-12-13 12:15] LABS: BASO % 0.3 % (0.0-1.0); EOS % 0.5 % (0.0-3.0); LARGE UNSTAINED CELL % 0.5 % (0.0-4.0); LYMPH # 0.9 K/mm3 (1.5-4.5); LYMPH % 10.7 % (24.0-44.0); MEAN CORPUSCULAR HEMOGLOBIN 31.4 pg (27.0-33.0); MEAN CORPUSCULAR HGB CONC 33.3 g/dl (32.0-36.5); MEAN CORPUSCULAR VOLUME 94.3 fl (80.0-96.0); MONO # 0.2 K/mm3 (0.0-0.8); MONO % 2.8 % (0.0-5.0); NEUTROPHILS # 7.2 K/mm3 (1.8-7.7); NEUTROPHILS % 85.3 % (36.0-66.0); PLATELET COUNT, AUTOMATED 440 k/mm3 (150-450); RED CELL DISTRIBUTION WIDTH 15.7 % (11.5-14.5); WHITE BLOOD COUNT 8.4 K/mm3 (4.0-10.0)
[2016-12-13 12:22] LABS: INR 0.98
[2016-12-13 12:31] LABS: ABG BASE EXCESS 1.7 (-2.0-2.0); ABG HCO3 24.9 MEQ/L (22.0-26.0); ABG PARTIAL PRESSURE CO2 34.9 mmHg (35.0-45.0); ABG PARTIAL PRESSURE O2 151.3 mmHg (75.0-100.0); ABG pH (ARTERIAL) 7.472 UNITS (7.350-7.450)
[2016-12-13 12:33] LABS: ALBUMIN 1.6 GM/DL (3.2-5.2); ALBUMIN/GLOBULIN RATIO 0.52 (1.00-1.93); ALKALINE PHOSPHATASE 438 U/L (45-117); ALT/SGPT 22 U/L (12-78); ANION GAP 10 MEQ/L (8-16); AST/SGOT 27 U/L (15-37); BILIRUBIN,DIRECT 0.2 MG/DL (0.0-0.2); BILIRUBIN,TOTAL 0.6 MG/DL (0.2-1.0); BLOOD UREA NITROGEN 8 MG/DL (7-18); CALCIUM LEVEL 8.2 MG/DL (8.5-10.1); CARBON DIOXIDE LEVEL 30 MEQ/L (21-32); CHLORIDE LEVEL 101 MEQ/L (98-107); CREATININE FOR GFR 1.23 MG/DL (0.70-1.30); GLOMERULAR FILTRATION RATE > 60.0 (>56); GLUCOSE, FASTING 126 MG/DL (70-105); POTASSIUM SERUM 4.1 MEQ/L (3.5-5.1); SODIUM LEVEL 141 MEQ/L (136-145); TOTAL PROTEIN 4.7 GM/DL (6.4-8.2)
[2016-12-13 12:35] LABS: AMYLASE 40 U/L (25-115)
[2016-12-13] MEDS ORDERED: CEFEPIME HCL 2 GM in D5W MINI-BAG PLUS 50 ML IV ONE (13:00)
[2016-12-13] MEDS ORDERED: fentaNYL 100 MCG/2 ML INJECTION (J3010) IV ONE (13:15)
[2016-12-13 13:31] LABS: CALCIUM OXALATE CRYSTALS SMALL
[2016-12-13] MEDS ORDERED: MORP1CAP48 PO (14:48)
--- NOTE | 2016-12-13 14:49 | REP ---
CT Head without contrast HISTORY: Altered mental status COMPARISON: 08/28/2016 Areas of decreased attenuation are present in the periventricular white matter. This represents small-vessel ischemic disease. There is no intraparenchymal hemorrhage, acute infarct, mass or midline shift. The ventricular system and cortical sulci are dilated consistent with mild volume loss. There is no extra cerebral collection. There is no fracture. The visualized sinuses are clear. IMPRESSION: 1. Small vessel ischemic disease. 2. Mild volume loss. Signed by Isak Ham MD 12/13/2016 12:26 P
[2016-12-13] MEDS: oxyCODONE 5MG TAB PO PRN (15:27)
[2016-12-13] MEDS: ONDANSETRON 4 MG TAB (S0181) PO PRN (15:27)
--- NOTE | 2016-12-13 16:36 | IPN ---
DATE: 12/13/2016 Sixto was seen again in the intensive care unit (ICU). He looks much better. He is lucid. With hydration and some improved perfusion, his mental status is returning to baseline. CT of the brain was unremarkable. Lab work showed some acute renal failure. His urinalysis shows some white cells and bacteria. I suspect it is a contaminant, but I am going to cover with Ancef until cultures come back. Depending on the results of the urine culture and his status tomorrow, he might be stable for discharge. In the past, he has rebounded quickly with intravenous hydration. However, his amyloid is progressive, and he is at the end stage of this and it might take more than a day of IV fluids before he is ready for discharge and he understands this. Pete is always eager to go home after a day, but it might take longer before he is ready to go and he understands this.
[2016-12-13 16:45] VITALS: BP 123/70
[2016-12-13] MEDS: KCL 20MEQ in NS 1000ML 1,000 ML IV SCH (17:50)
[2016-12-13] MEDS: MIDODRINE 5 MG TAB PO SCH (17:51)
--- NOTE | 2016-12-13 18:01 | REP ---
Portable chest x-ray: Single view. History: Sepsis. Shock. Comparison study: August 28, 2016. Findings: EKG monitoring electrodes overlie the chest. Lungs are symmetrically aerated and clear. The pleural angles are sharp. Cardiomediastinal silhouette is unremarkable. Impression: Negative portable chest x-ray. Signed by Juan Manuel Rebollar MD 12/17/2016 08:10 A
[2016-12-13] MEDS: METOCLOPRAMIDE INJ 10MG/2ML VIAL (J2765) IV PRN (19:55)
[2016-12-13] MEDS ORDERED: ONDANSETRON 4MG/2ML VIAL (J2405) IV PRN (20:00)
[2016-12-13] MEDS: OMEPRAZOLE 20 MG CAP PO SCH (20:35)
[2016-12-13] MEDS: MIRTAZAPINE 15 MG TAB PO SCH (20:35)
[2016-12-13] MEDS: MORPHINE 15 MG SA TAB PO SCH (20:36)
[2016-12-13] MEDS: ceFAZolin SOD 1 GM in D5W MINI-BAG PLUS 50 ML IV SCH (20:36)
[2016-12-13] MEDS: MEGESTROL 40 MG TAB PO SCH (21:12)
[2016-12-13 21:30] VITALS: BP 118/87
[2016-12-14 01:55] VITALS: BP 123/90
[2016-12-14 05:20] VITALS: BP 120/90
[2016-12-14] MEDS: KCL 20MEQ in NS 1000ML 1,000 ML IV SCH ×5 (05:49→20:20)
[2016-12-14] MEDS: LEVOTHYROXINE 125MCG TABLET (0.125MG) PO SCH (05:49)
[2016-12-14] MEDS: ceFAZolin SOD 1 GM in D5W MINI-BAG PLUS 50 ML IV SCH ×3 (05:49→20:12)
[2016-12-14] MEDS: oxyCODONE 5MG TAB PO PRN ×3 (05:52→15:04)
[2016-12-14 06:20] LABS: MEAN CORPUSCULAR HEMOGLOBIN 31.2 pg (27.0-33.0); MEAN CORPUSCULAR HGB CONC 33.8 g/dl (32.0-36.5); MEAN CORPUSCULAR VOLUME 92.6 fl (80.0-96.0); RED CELL DISTRIBUTION WIDTH 15.8 % (11.5-14.5); WHITE BLOOD COUNT 8.8 K/mm3 (4.0-10.0)
[2016-12-14 07:02] LABS: CALCIUM LEVEL 7.5 MG/DL (8.5-10.1); CREATININE FOR GFR 1.62 MG/DL (0.70-1.30); GLOMERULAR FILTRATION RATE 47.2 (>56)
[2016-12-14] MEDS: OMEPRAZOLE 20 MG CAP PO SCH ×2 (08:37→20:11)
[2016-12-14] MEDS: MORPHINE 15 MG SA TAB PO SCH ×2 (08:37→20:12)
[2016-12-14] MEDS: MIDODRINE 5 MG TAB PO SCH ×3 (08:38→15:02)
[2016-12-14] MEDS: MEGESTROL 40 MG TAB PO SCH ×2 (08:38→20:10)
[2016-12-14] MEDS: ENOXAPARIN 40 MG/0.4 ML SYRINGE (J1650) SC SCH (08:40)
[2016-12-14 10:00] VITALS: BP 90/58
[2016-12-14 14:00] VITALS: BP 146/104
[2016-12-14 18:00] VITALS: BP 126/91
--- NOTE | 2016-12-14 19:08 | ECGEPIP ---
Stationary ECG Study [facility] - ED Test Date: 2016-12-13 Pat Name: ADRIAN SETH JR Department: Room: - Gender: M [employer]ic: rn : [id number] Requested By: Rishi Tam Order Number: [id number] Reading MD: Kalin Roland Measurements Intervals [place] Rate: 126 P: 53 IL: 172 QRS: 59 QRSD: 74 T: 31 QT: 379 QTc: 549 Interpretive Statements SINUS TACHYCARDIA LOW QRS VOLTAGE IN EXTREMITY LEADS ABNORMAL RHYTHM ECG DELAYED R WAVE PROGRESSION PROLONGED QTC CW 08/28/[address] T WAVE CHANGES Electronically Signed On 12-14-2016 19:08:00 EDT by Kalin Roland
[2016-12-14] MEDS: MIRTAZAPINE 15 MG TAB PO SCH (20:10)
[2016-12-14 21:00] VITALS: BP 157/103
--- NOTE | 2016-12-14 22:05 | IPNPDOC ---
Subjective Date Seen The patient was seen on 12/14/16. Subjective Chief Complaint/HPI The patient is a 56-year-old male admitted with a reason for visit of Dehydration. Events since last encounter Nursing has reported a low urine output most today. We've increased his IV fluids from 150 mL an hour to 250 mL an hour to try to help this. Unfortunately this didn't seem to make a big difference. The patient's reports she noted some swelling around his abdomen. General: Reports: Other Symptoms (decreased appetite) Constitutional: Reports: Lethargy, Denies: Fever Skin: Denies: Lesions Pulmonary: Denies: Cough Cardiovascular: Denies: Chest Pain, Palpitations Genitourinary: Denies: Dysuria, Hematuria Psych: Reports: Mood Normal Objective Physical Examination General Exam: Positive: No Acute Distress Eye Exam: Positive: Conjunctiva & lids normal, Negative: Sclera icteric ENT Exam: Positive: Mucous membr. moist/pink Neck Exam: Negative: Lymphadenopathy Chest Exam: Positive: Clear to auscultation, Normal air movement Heart Exam: Positive: Rate Normal, Normal S1, Normal S2, Negative: Murmurs Abdomen Exam: Positive: Normal bowel sounds, Soft, Other (it's possible there is slight swelling around his abdomen, but it's really difficult to tell as he is extremely ticklish and tenses his abdomen during the entire examination.), Negative: Tenderness Extremity Exam: Positive: Edema (there is trace bimalleolar edema noted only) Psych Exam: Positive: Mood NL, Oriented x 3 Assessment /Plan Problems (1) Dehydration Status: Acute Problem Specific Plan: Monitor Clinically, Repeat Labs Problem Text: Today we've been treating him with IV fluids and attempt to improve his urine output which and using is approximated for his dehydration. Unfortunately not been very successful with this. He doesn't appear to be clinically very dehydrated. I changed his IV fluids back to 150 mL an hour and we'll continue to monitor. (2) Amyloidosis Status: Chronic Problem Specific Plan: Monitor Clinically Problem Text: He has several organ systems that are involved with the amyloidosis. Follows with Onc as outpt. Plan/VTE VTE Prophylaxis Ordered?: Yes (Lovenox) Plan IVF: Continue Diet: Continue Current VS, I&O, 24H, Fishbone Vital Signs/I&O Vital Signs Date Time Temp Pulse Resp B/P (MAP) Pulse Ox O2 Delivery O2 Flow Rate FiO2 12/14/16 20:12 18 Room Air 12/14/16 18:00 98.2 83 126/91 (103) 96 I&O- Last 24 Hours up to 6 AM 12/14/16 05:59 Intake Total 2290 ml Output Total 100 ml Balance 2190 ml Laboratory Data 24H LABS Laboratory Tests 2 12/14/16 05:45: Anion Gap 10, Glomerular Filtration Rate 47.2L, Blood Urea Nitrogen 12, Creatinine 1.62H, Sodium Level 146H, Potassium Level 4.0, Chloride Level 110H, Carbon Dioxide Level 26, Calcium Level 7.5L CBC/BMP Laboratory Tests 12/14/16 05:45 Red Blood Count 4.54, Mean Corpuscular Volume 92.6, Mean Corpuscular Hemoglobin 31.2, Mean Corpuscular Hemoglobin Concent 33.8, Red Cell Distribution Width 15.8 H, Calcium Level 7.5 L Microbiology Microbiology 12/13/16 Blood Culture - Preliminary, Resulted No growth after 24 hours . All specim... 12/13/16 Blood Culture - Preliminary, Resulted No growth after 24 hours . All specim... 12/13/16 Influenza Virus Type A Antigen - Final, Complete 12/13/16 Influenza Virus Type B Antigen - Final, Complete 12/13/16 Urine Culture, Received Pending Juan C Aranda MD Dec 14, 2016 22:05
[2016-12-15] MEDS ORDERED: KCL 20MEQ in NS 1000ML 1,000 ML IV SCH (00:25)
[2016-12-15 01:45] VITALS: BP 128/92
[2016-12-15] MEDS: oxyCODONE 5MG TAB PO PRN ×4 (01:47→18:13)
[2016-12-15] MEDS: ceFAZolin SOD 1 GM in D5W MINI-BAG PLUS 50 ML IV SCH ×3 (05:38→21:51)
[2016-12-15] MEDS: LEVOTHYROXINE 125MCG TABLET (0.125MG) PO SCH (05:38)
[2016-12-15 05:40] VITALS: BP 150/107
[2016-12-15 05:56] LABS: MEAN CORPUSCULAR HEMOGLOBIN 31.2 pg (27.0-33.0); MEAN CORPUSCULAR HGB CONC 33.1 g/dl (32.0-36.5); MEAN CORPUSCULAR VOLUME 94.5 fl (80.0-96.0); RED CELL DISTRIBUTION WIDTH 15.9 % (11.5-14.5); WHITE BLOOD COUNT 10.4 K/mm3 (4.0-10.0)
[2016-12-15 06:18] LABS: ALBUMIN 1.2 GM/DL (3.2-5.2); ALBUMIN/GLOBULIN RATIO 0.43 (1.00-1.93); BILIRUBIN,TOTAL 0.2 MG/DL (0.2-1.0); CALCIUM LEVEL 7.5 MG/DL (8.5-10.1); CREATININE FOR GFR 1.47 MG/DL (0.70-1.30); GLOMERULAR FILTRATION RATE 52.8 (>56); MAGNESIUM LEVEL 1.6 MG/DL (1.8-2.4)
[2016-12-15] MEDS: METOCLOPRAMIDE INJ 10MG/2ML VIAL (J2765) IV PRN ×2 (08:09→19:42)
[2016-12-15] MEDS: MIDODRINE 5 MG TAB PO SCH ×3 (08:15→15:29)
[2016-12-15] MEDS: MEGESTROL 40 MG TAB PO SCH ×2 (08:16→21:51)
[2016-12-15] MEDS: OMEPRAZOLE 20 MG CAP PO SCH ×2 (08:16→21:50)
[2016-12-15] MEDS: MORPHINE 15 MG SA TAB PO SCH ×2 (08:17→21:51)
[2016-12-15] MEDS: ENOXAPARIN 40 MG/0.4 ML SYRINGE (J1650) SC SCH (08:17)
[2016-12-15 10:00] VITALS: BP 125/85
[2016-12-15] MEDS: ONDANSETRON 4 MG TAB (S0181) PO PRN (11:42)
[2016-12-15 14:00] VITALS: BP 105/70
--- NOTE | 2016-12-15 15:29 | IPNPDOC ---
Subjective Date Seen The patient was seen on 12/15/16. Subjective Chief Complaint/HPI The patient is a 56-year-old male admitted with a reason for visit of Dehydration. Events since last encounter His urine output has improved some but still is not great today. He is a little discouraged she's not popping back quickly, but is committed to getting better in the long haul. He notices more swelling in his abdomen specifically. He is not having abdominal pain Constitutional: Denies: Chills, Fever Pulmonary: Denies: Cough Cardiovascular: Denies: Chest Pain, Palpitations Gastrointestinal: Denies: Nausea, Abdominal Pain Genitourinary: Denies: Dysuria Psych: Reports: Mood Normal Objective Physical Examination General Exam: Positive: No Acute Distress Eye Exam: Positive: Conjunctiva & lids normal, Negative: Sclera icteric ENT Exam: Positive: Mucous membr. moist/pink Neck Exam: Negative: Lymphadenopathy Chest Exam: Positive: Clear to auscultation, Normal air movement Heart Exam: Positive: Rate Normal, Normal S1, Normal S2, Negative: Murmurs Abdomen Exam: Positive: Normal bowel sounds, Soft, Negative: Tenderness Extremity Exam: Positive: Edema (today there is 2-3 mm of bimalleolar edema and trace edema on the dorsum of his hands. I suspect there is some ascites in his abdomen as well, but again he guards his abdomen very carefully because he is so ticklish.) Psych Exam: Positive: Mood NL, Oriented x 3 Assessment /Plan Problems (1) Dehydration Status: Acute Problem Specific Plan: Monitor Clinically, Repeat Labs Problem Text: His BUN and creatinine are improving a little with hydration from yesterday. However I believe we found the answer to why his urine output is so low. It's his very low oncotic pressure related to the nephrotic syndrome from his amyloidosis. I'll change the focus from rehydration to improving his protein status. (2) Amyloidosis Status: Chronic Problem Specific Plan: Monitor Clinically Problem Text: He has several organ systems that are involved with the amyloidosis. Follows with Onc as outpt. 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 Nutrition did a consultation today and recommended ensure original 3 times a day in between meals. I spent some time explaining to the patient why this was so important. He is committed to "beating this thing" so he was very happy to have something he could do to help improve his own clinical status. Plan/VTE VTE Prophylaxis Ordered?: Yes (Nanyx) Plan Diet: Supplement (his protein to improve his albumin levels) VS, I&O, 24H, Fishbone Vital Signs/I&O Vital Signs Date Time Temp Pulse Resp B/P (MAP) Pulse Ox O2 Delivery O2 Flow Rate FiO2 12/15/16 12:35 18 12/15/16 06:23 Room Air 12/15/16 05:40 98.7 108 150/107 (121) 95 I&O- Last 24 Hours up to 6 AM 12/15/16 05:59 Intake Total 2555 ml Output Total 300 ml Balance 2255 ml Laboratory Data 24H LABS Laboratory Tests 2 12/14/16 21:35: Lactic Acid Followup at 4 Hours 0.6 12/15/16 05:35: Anion Gap 8, Glomerular Filtration Rate 52.8L, Lactic Acid Level 0.6, Blood Urea Nitrogen 14, Creatinine 1.47H, Sodium Level 146H, Potassium Level 4.0, Chloride Level 112H, Carbon Dioxide Level 26, Calcium Level 7.5L, Aspartate Amino Transf (AST/SGOT) 21, Alanine Aminotransferase (ALT/SGPT) 13, Alkaline Phosphatase 278H, Total Bilirubin 0.2#, Total Protein 4.0L, Albumin 1.2#L, Magnesium Level 1.6L, C-Reactive Protein, Quantitative < 0.30, Albumin/Globulin Ratio 0.43L CBC/BMP Laboratory Tests 12/15/16 05:35 Red Blood Count 3.81 L, Mean Corpuscular Volume 94.5, Mean Corpuscular Hemoglobin 31.2, Mean Corpuscular Hemoglobin Concent 33.1, Red Cell Distribution Width 15.9 H, Calcium Level 7.5 L, Aspartate Amino Transf (AST/SGOT ) 21, Alanine Aminotransferase (ALT/SGPT) 13, Alkaline Phosphatase 278 H, Total Bilirubin 0.2 #, Total Protein 4.0 L, Albumin 1.2 #L Microbiology Microbiology 12/13/16 Blood Culture - Preliminary, Resulted No Growth after 48 hours. All Specime... 12/13/16 Blood Culture - Preliminary, Resulted No Growth after 48 hours. All Specime... 12/13/16 Influenza Virus Type A Antigen - Final, Complete 12/13/16 Influenza Virus Type B Antigen - Final, Complete 12/13/16 Urine Culture - Final, Complete Juan C Aranda MD Dec 15, 2016 15:29
[2016-12-15] MEDS ORDERED: FUROSEMIDE 20 MG/2 ML VIAL (J1940) IV ONE (16:00)
[2016-12-15 18:00] VITALS: BP 141/74
[2016-12-15] MEDS: MIRTAZAPINE 15 MG TAB PO SCH (21:51)
[2016-12-15 22:00] VITALS: BP 140/75
[2016-12-16] MEDS: ceFAZolin SOD 1 GM in D5W MINI-BAG PLUS 50 ML IV SCH (05:21)
[2016-12-16] MEDS: oxyCODONE 5MG TAB PO PRN ×3 (05:21→16:40)
[2016-12-16] MEDS: LEVOTHYROXINE 125MCG TABLET (0.125MG) PO SCH (05:27)
[2016-12-16 06:00] VITALS: BP 158/102
[2016-12-16 06:30] VITALS: BP 140/82
[2016-12-16 06:35] LABS: BASO % 0.6 % (0.0-1.0); EOS # 0.1 K/mm3 (0.0-0.50); EOS % 0.8 % (0.0-3.0); LARGE UNSTAINED CELL # 0.1 K/mm3 (0.0-0.4); LARGE UNSTAINED CELL % 0.9 % (0.0-4.0); LYMPH # 1.3 K/mm3 (1.5-4.5); LYMPH % 14.5 % (24.0-44.0); MEAN CORPUSCULAR HEMOGLOBIN 31.4 pg (27.0-33.0); MEAN CORPUSCULAR HGB CONC 33.6 g/dl (32.0-36.5); MEAN CORPUSCULAR VOLUME 93.5 fl (80.0-96.0); MONO # 0.5 K/mm3 (0.0-0.8); MONO % 5.5 % (0.0-5.0); NEUTROPHILS # 6.4 K/mm3 (1.8-7.7); NEUTROPHILS % 77.8 % (36.0-66.0); PLATELET COUNT, AUTOMATED 419 k/mm3 (150-450); RED CELL DISTRIBUTION WIDTH 15.6 % (11.5-14.5); WHITE BLOOD COUNT 8.2 K/mm3 (4.0-10.0)
[2016-12-16 06:53] LABS: ALBUMIN 1.3 GM/DL (3.2-5.2); ALBUMIN/GLOBULIN RATIO 0.43 (1.00-1.93); ALKALINE PHOSPHATASE 330 U/L (45-117); ALT/SGPT 13 U/L (12-78); ANION GAP 6 MEQ/L (8-16); AST/SGOT 34 U/L (15-37); BILIRUBIN,TOTAL 0.3 MG/DL (0.2-1.0); BLOOD UREA NITROGEN 15 MG/DL (7-18); CALCIUM LEVEL 7.7 MG/DL (8.5-10.1); CARBON DIOXIDE LEVEL 28 MEQ/L (21-32); CHLORIDE LEVEL 106 MEQ/L (98-107); CREATININE FOR GFR 1.17 MG/DL (0.70-1.30); GLOMERULAR FILTRATION RATE > 60.0 (>56); GLUCOSE, FASTING 82 MG/DL (70-105); MAGNESIUM LEVEL 1.6 MG/DL (1.8-2.4); POTASSIUM SERUM 3.6 MEQ/L (3.5-5.1); SODIUM LEVEL 140 MEQ/L (136-145); TOTAL PROTEIN 4.3 GM/DL (6.4-8.2)
[2016-12-16] MEDS: ENOXAPARIN 40 MG/0.4 ML SYRINGE (J1650) SC SCH ×2 (09:00→09:26)
[2016-12-16] MEDS: MIDODRINE 5 MG TAB PO SCH ×3 (09:25→16:40)
[2016-12-16] MEDS: ONDANSETRON 4 MG TAB (S0181) PO PRN (09:25)
[2016-12-16] MEDS: MEGESTROL 40 MG TAB PO SCH ×2 (09:26→21:02)
[2016-12-16] MEDS: MORPHINE 15 MG SA TAB PO SCH ×2 (09:26→21:02)
[2016-12-16] MEDS: OMEPRAZOLE 20 MG CAP PO SCH ×2 (09:26→21:02)
--- NOTE | 2016-12-16 10:55 | IPNPDOC ---
Subjective Date Seen The patient was seen on 12/16/16. Subjective Chief Complaint/HPI The patient is a 56-year-old male admitted with a reason for visit of Dehydration. Events since last encounter Pt states he is starting to feel a little better but he still feels weak. Denies CP, SOB. Has been having diarrhea, but has not yet had a BM today. Constitutional: Denies: Chills, Fever Pulmonary: Denies: Dyspnea Cardiovascular: Denies: Chest Pain Gastrointestinal: Reports: Diarrhea, Denies: Nausea, Vomiting, Abdominal Pain Objective Physical Examination General Exam: Positive: Alert, No Acute Distress Neck Exam: Positive: Supple, Negative: JVD Chest Exam: Positive: Clear to auscultation Heart Exam: Positive: Rate Normal, Regular Rhythm Abdomen Exam: Positive: Normal bowel sounds, Soft, Other (distended), Negative: Tenderness Extremity Exam: Positive: Edema (trace B/L LE) Assessment /Plan Problems (1) Dehydration Status: Acute Problem Specific Plan: Monitor Clinically, Repeat Labs Problem Text: Initially received IVF which were d/c'ed. Has received Lasix for edema. Monitor fluid status closely. (2) Amyloidosis Status: Chronic Problem Specific Plan: Monitor Clinically Problem Text: Follows with Onc as outpt. Plan/VTE VTE Prophylaxis Ordered?: Yes VS, I&O, 24H, Fishbone Vital Signs/I&O Vital Signs Date Time Temp Pulse Resp B/P (MAP) Pulse Ox O2 Delivery O2 Flow Rate FiO2 12/16/16 09:26 18 12/16/16 06:30 140/82 (101) 12/16/16 06:00 98.0 97 93 Room Air I&O- Last 24 Hours up to 6 AM 12/16/16 06:00 Intake Total 1250 ml Output Total 900 ml Balance 350 ml Laboratory Data 24H LABS Laboratory Tests 2 12/16/16 05:55: White Blood Count 8.2, Red Blood Count 4.13L, Hemoglobin 12.9L, Hematocrit 38.6L , Mean Corpuscular Volume 93.5, Mean Corpuscular Hemoglobin 31.4, Mean Corpuscular Hemoglobin Concent 33.6, Red Cell Distribution Width 15.6H, Platelet Count 419, Neutrophils (%) (Auto) 77.8H, Lymphocytes (%) (Auto) 14.5L, Monocytes (%) (Auto) 5.5H, Eosinophils (%) (Auto) 0.8, Basophils (%) (Auto) 0.6 , Neutrophils # (Auto) 6.4, Lymphocytes # (Auto) 1.3L, Monocytes # (Auto) 0.5, Eosinophils # (Auto) 0.1, Basophils # (Auto) 0.0, Large Unclassified Cells % 0.9 , Large Unclassified Cells # 0.1, Anion Gap 6L, Glomerular Filtration Rate > 60.0, Blood Urea Nitrogen 15, Creatinine 1.17, Sodium Level 140, Potassium Level 3.6, Chloride Level 106, Carbon Dioxide Level 28, Calcium Level 7.7L, Aspartate Amino Transf (AST/SGOT) 34, Alanine Aminotransferase (ALT/SGPT) 13, Alkaline Phosphatase 330H, Total Bilirubin 0.3, Total Protein 4.3L, Albumin 1.3L , Magnesium Level 1.6L, Albumin/Globulin Ratio 0.43L CBC/BMP Laboratory Tests 12/16/16 05:55 Red Blood Count 4.13 L, Mean Corpuscular Volume 93.5, Mean Corpuscular Hemoglobin 31.4, Mean Corpuscular Hemoglobin Concent 33.6, Red Cell Distribution Width 15.6 H, Neutrophils (%) (Auto) 77.8 H, Lymphocytes (%) (Auto ) 14.5 L, Monocytes (%) (Auto) 5.5 H, Eosinophils (%) (Auto) 0.8, Basophils (%) (Auto) 0.6, Neutrophils # (Auto) 6.4, Lymphocytes # (Auto) 1.3 L, Monocytes # ( Auto) 0.5, Eosinophils # (Auto) 0.1, Basophils # (Auto) 0.0, Calcium Level 7.7 L , Aspartate Amino Transf (AST/SGOT) 34, Alanine Aminotransferase (ALT/SGPT) 13, Alkaline Phosphatase 330 H, Total Bilirubin 0.3, Total Protein 4.3 L, Albumin 1.3 L Microbiology Microbiology 12/13/16 Blood Culture - Preliminary, Resulted No Growth after 48 hours. All Specime... 12/13/16 Blood Culture - Preliminary, Resulted No Growth after 48 hours. All Specime... 12/13/16 Influenza Virus Type A Antigen - Final, Complete 12/13/16 Influenza Virus Type B Antigen - Final, Complete 12/13/16 Urine Culture - Final, Complete Attending Note Attending Note ON cefazolin for initial presentation of change in Mental status. blood cultures now negative x 72 hours, will d/c antibiotic. Maulik Terry Dec 16, 2016 10:55 Orlin Lindsay MD Dec 16, 2016 12:21
[2016-12-16 14:00] VITALS: BP 155/105
[2016-12-16 16:44] VITALS: BP 154/100
[2016-12-16] MEDS: METOCLOPRAMIDE INJ 10MG/2ML VIAL (J2765) IV PRN (17:30)
[2016-12-16] MEDS: DRONABINOL 2.5 MG CAP (MARINOL) PO SCH (17:30)
[2016-12-16] MEDS: MIRTAZAPINE 15 MG TAB PO SCH (21:00)
[2016-12-16 22:00] VITALS: BP 160/110
[2016-12-17] MEDS: oxyCODONE 5MG TAB PO PRN ×3 (01:42→16:36)
[2016-12-17] MEDS: LEVOTHYROXINE 125MCG TABLET (0.125MG) PO SCH (05:40)
[2016-12-17 06:00] VITALS: BP 102/67
[2016-12-17 06:17] LABS: MEAN CORPUSCULAR HEMOGLOBIN 31.9 pg (27.0-33.0); MEAN CORPUSCULAR HGB CONC 34.2 g/dl (32.0-36.5); MEAN CORPUSCULAR VOLUME 93.2 fl (80.0-96.0); RED CELL DISTRIBUTION WIDTH 15.8 % (11.5-14.5); WHITE BLOOD COUNT 8.6 K/mm3 (4.0-10.0)
[2016-12-17 06:35] LABS: ANION GAP 6 MEQ/L (8-16); BLOOD UREA NITROGEN 15 MG/DL (7-18); CALCIUM LEVEL 7.9 MG/DL (8.5-10.1); CARBON DIOXIDE LEVEL 29 MEQ/L (21-32); CHLORIDE LEVEL 107 MEQ/L (98-107); CREATININE FOR GFR 0.97 MG/DL (0.70-1.30); GLOMERULAR FILTRATION RATE > 60.0 (>56); GLUCOSE, FASTING 71 MG/DL (70-105); POTASSIUM SERUM 4.3 MEQ/L (3.5-5.1); SODIUM LEVEL 142 MEQ/L (136-145)
[2016-12-17] MEDS: ENOXAPARIN 40 MG/0.4 ML SYRINGE (J1650) SC SCH (09:00)
[2016-12-17] MEDS: MIDODRINE 5 MG TAB PO SCH ×3 (09:04→16:16)
[2016-12-17] MEDS: MEGESTROL 40 MG TAB PO SCH ×2 (09:04→20:43)
[2016-12-17] MEDS: OMEPRAZOLE 20 MG CAP PO SCH ×2 (09:04→20:43)
[2016-12-17] MEDS: MORPHINE 15 MG SA TAB PO SCH ×2 (09:08→20:43)
[2016-12-17 09:51] VITALS: BP 91/50
--- NOTE | 2016-12-17 10:43 | IPNPDOC ---
Subjective Date Seen The patient was seen on 12/17/16. Subjective Chief Complaint/HPI The patient is a 56-year-old male admitted with a reason for visit of Dehydration. Events since last encounter Pt states he is about the same. Denies CP, SOB, Abd pain. Constitutional: Denies: Chills, Fever Pulmonary: Denies: Dyspnea Cardiovascular: Denies: Chest Pain Gastrointestinal: Denies: Abdominal Pain Objective Physical Examination General Exam: Positive: Alert, No Acute Distress Neck Exam: Positive: Supple, Negative: JVD Chest Exam: Positive: Clear to auscultation Heart Exam: Positive: Rate Normal, Regular Rhythm Abdomen Exam: Positive: Normal bowel sounds, Soft, Other (distended), Negative: Tenderness Extremity Exam: Positive: Edema (trace B/L LE) Assessment /Plan Problems (1) Dehydration Status: Resolved Problem Specific Plan: Monitor Clinically, Repeat Labs Problem Text: 12/17 - Fluid status up. Did receive a small dose of Lasix over the weekend. Consider additional Lasix. Discuss with attending. Antibiotics stopped yesterday. 12/16 - Initially received IVF which were d/c'ed. Has received Lasix for edema. Monitor fluid status closely. (2) Amyloidosis Status: Chronic Problem Specific Plan: Monitor Clinically Problem Text: Follows with Onc as outpt. Plan/VTE VTE Prophylaxis Ordered?: Yes Plan Family Medicine Attending Note: I saw and examined Mr. Ortega, discussed with MARIPOSA Rinaldi. Agree with their note as documented. Mr. Ortega is having increasing leg edema and some ascites. His main problem is his nephrotic syndrome with protein wasting. His albumin remains low. There will be a long slow recovery for him while he refills his protein stores. 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, I&O, 24H, Fishbone Vital Signs/I&O Vital Signs Date Time Temp Pulse Resp B/P (MAP) Pulse Ox O2 Delivery O2 Flow Rate FiO2 12/17/16 09:51 95.7 82 16 91/50 (64) 96 Room Air I&O- Last 24 Hours up to 6 AM 12/17/16 06:00 Intake Total 1200 ml Output Total 350 ml Balance 850 ml Laboratory Data 24H LABS Laboratory Tests 2 12/17/16 06:05: Anion Gap 6L, Glomerular Filtration Rate > 60.0, Blood Urea Nitrogen 15, Creatinine 0.97, Sodium Level 142, Potassium Level 4.3, Chloride Level 107, Carbon Dioxide Level 29, Calcium Level 7.9L CBC/BMP Laboratory Tests 12/17/16 06:05 Red Blood Count 4.05 L, Mean Corpuscular Volume 93.2, Mean Corpuscular Hemoglobin 31.9, Mean Corpuscular Hemoglobin Concent 34.2, Red Cell Distribution Width 15.8 H, Calcium Level 7.9 L Microbiology Microbiology 12/13/16 Blood Culture - Final, Complete 12/13/16 Blood Culture - Final, Complete 12/13/16 Influenza Virus Type A Antigen - Final, Complete 12/13/16 Influenza Virus Type B Antigen - Final, Complete 12/13/16 Urine Culture - Final, Complete Maulik Terry Dec 17, 2016 10:43 Juan C Aranda MD Dec 20, 2016 22:08
[2016-12-17] MEDS: DRONABINOL 2.5 MG CAP (MARINOL) PO SCH ×2 (12:20→17:41)
[2016-12-17 14:00] VITALS: BP 141/90
[2016-12-17] MEDS: FUROSEMIDE 20 MG/2 ML VIAL (J1940) IV SCH (14:07)
[2016-12-17] MEDS: MIRTAZAPINE 15 MG TAB PO SCH (20:43)
[2016-12-17 22:00] VITALS: BP 127/97
[2016-12-18] MEDS: VANCOMYCIN ORAL SOL 250MG/5ML ORAL SYRINGE PO SCH ×4 (00:30→18:00)
[2016-12-18] MEDS: oxyCODONE 5MG TAB PO PRN ×4 (00:30→22:35)
[2016-12-18 02:00] VITALS: BP 117/88
[2016-12-18] MEDS: LEVOTHYROXINE 125MCG TABLET (0.125MG) PO SCH (06:21)
[2016-12-18 06:49] VITALS: BP 140/97
[2016-12-18] MEDS: MORPHINE 15 MG SA TAB PO SCH ×2 (08:47→21:21)
[2016-12-18] MEDS: ENOXAPARIN 40 MG/0.4 ML SYRINGE (J1650) SC SCH (08:48)
[2016-12-18] MEDS: MIDODRINE 5 MG TAB PO SCH ×3 (08:48→16:47)
[2016-12-18] MEDS: MEGESTROL 40 MG TAB PO SCH ×2 (08:48→21:22)
[2016-12-18] MEDS: OMEPRAZOLE 20 MG CAP PO SCH ×2 (08:48→21:21)
--- NOTE | 2016-12-18 08:48 | IPNPDOC ---
Subjective Date Seen The patient was seen on 12/18/16. Subjective Chief Complaint/HPI The patient is a 56-year-old male admitted with a reason for visit of Dehydration. Events since last encounter Pt feels about the same. Loose stool this AM. Denies Abd pain, CP, SOB. Constitutional: Denies: Chills, Fever Pulmonary: Denies: Dyspnea Cardiovascular: Denies: Chest Pain Gastrointestinal: Denies: Abdominal Pain Objective Physical Examination General Exam: Positive: No Acute Distress Eye Exam: Positive: Conjunctiva & lids normal ENT Exam: Positive: Mucous membr. moist/pink Neck Exam: Negative: Lymphadenopathy Chest Exam: Positive: Clear to auscultation, Normal air movement Heart Exam: Positive: Rate Normal, Normal S1, Normal S2 Abdomen Exam: Positive: Normal bowel sounds, Soft Extremity Exam: Positive: Edema Psych Exam: Positive: Mood NL, Oriented x 3 Assessment /Plan Problems (1) C. difficile colitis Status: Acute Problem Specific Plan: Monitor Clinically, Repeat Labs Problem Text: 12/18 - C Diff positive. Started on PO Vanco. (2) Dehydration Status: Resolved Problem Specific Plan: Monitor Clinically, Repeat Labs Problem Text: We continue to focus on improving his protein intake in order to improve his oncotic pressure. (3) Amyloidosis Status: Chronic Problem Specific Plan: Monitor Clinically Problem Text: He has several organ systems that are involved with the amyloidosis. Follows with Onc as outpt. 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 Nutrition recommended ensure original 3 times a day in between meals. (5) Metabolic encephalopathy Status: Resolved Problem Specific Plan: Monitor Clinically Problem Text: resolved Plan/VTE VTE Prophylaxis Ordered?: Yes Plan IVF: Continue Diet: Supplement Family Medicine Attending Note: I saw and examined Mr. Ortega, discussed with MARIPOSA Rinaldi. Agree with their note as documented. He has started drinking the Ensure between his meal to help boost his protein levels. His edema seems about the same today. We will continue to monitor his nutritional/ oncotic status. 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, I&O, 24H, Fishbone Vital Signs/I&O Vital Signs Date Time Temp Pulse Resp B/P (MAP) Pulse Ox O2 Delivery O2 Flow Rate FiO2 12/18/16 06:56 16 12/18/16 06:49 98.6 66 140/97 (111) 97 Room Air I&O- Last 24 Hours up to 6 AM 12/18/16 06:00 Intake Total 1180 ml Output Total 1200 ml Balance -20 ml Laboratory Data Microbiology Microbiology 12/13/16 Blood Culture - Final, Complete 12/13/16 Blood Culture - Final, Complete 12/17/16 Gastrointestinal Tract Panel (PCR) - Final, Complete Clostridium Difficile A/B 12/13/16 Influenza Virus Type A Antigen - Final, Complete 12/13/16 Influenza Virus Type B Antigen - Final, Complete 12/13/16 Urine Culture - Final, Complete Maulik Terry Dec 18, 2016 08:48 Juan C Aranda MD Dec 20, 2016 22:32
[2016-12-18 09:12] LABS: ANION GAP 11 MEQ/L (8-16); BLOOD UREA NITROGEN 14 MG/DL (7-18); CALCIUM LEVEL 7.9 MG/DL (8.5-10.1); CARBON DIOXIDE LEVEL 26 MEQ/L (21-32); CHLORIDE LEVEL 107 MEQ/L (98-107); CREATININE FOR GFR 1.01 MG/DL (0.70-1.30); GLOMERULAR FILTRATION RATE > 60.0 (>56); GLUCOSE, FASTING 110 MG/DL (70-105); POTASSIUM SERUM 3.8 MEQ/L (3.5-5.1); SODIUM LEVEL 144 MEQ/L (136-145)
[2016-12-18 09:22] LABS: MEAN CORPUSCULAR HEMOGLOBIN 31.2 pg (27.0-33.0); MEAN CORPUSCULAR HGB CONC 33.4 g/dl (32.0-36.5); MEAN CORPUSCULAR VOLUME 93.6 fl (80.0-96.0); RED CELL DISTRIBUTION WIDTH 15.7 % (11.5-14.5); WHITE BLOOD COUNT 8.5 K/mm3 (4.0-10.0)
[2016-12-18 10:00] VITALS: BP 134/81
[2016-12-18] MEDS: FUROSEMIDE 20 MG/2 ML VIAL (J1940) IV SCH (12:01)
[2016-12-18] MEDS: ONDANSETRON 4 MG TAB (S0181) PO PRN (12:09)
[2016-12-18] MEDS: DRONABINOL 2.5 MG CAP (MARINOL) PO SCH ×2 (12:31→16:47)
[2016-12-18 14:00] VITALS: BP 130/106
[2016-12-18 18:00] VITALS: BP 135/105
[2016-12-18] MEDS: MIRTAZAPINE 15 MG TAB PO SCH (21:22)
[2016-12-18] MEDS ORDERED: AQUAPHOR **100GM** OINT TOP PRN (23:15)
[2016-12-19] VITALS (10 sets, daily range): BP systolic 100–160; BP diastolic 73–119
[2016-12-19] MEDS: VANCOMYCIN ORAL SOL 250MG/5ML ORAL SYRINGE PO SCH ×4 (00:11→17:41)
[2016-12-19] MEDS: oxyCODONE 5MG TAB PO PRN ×2 (06:02→15:56)
[2016-12-19] MEDS: LEVOTHYROXINE 125MCG TABLET (0.125MG) PO SCH (06:02)
[2016-12-19 06:57] LABS: ALBUMIN 1.2 GM/DL (3.2-5.2); ALBUMIN/GLOBULIN RATIO 0.38 (1.00-1.93); ALKALINE PHOSPHATASE 382 U/L (45-117); ALT/SGPT 18 U/L (12-78); ANION GAP 7 MEQ/L (8-16); AST/SGOT 30 U/L (15-37); BILIRUBIN,TOTAL 0.2 MG/DL (0.2-1.0); BLOOD UREA NITROGEN 14 MG/DL (7-18); CALCIUM LEVEL 7.4 MG/DL (8.5-10.1); CARBON DIOXIDE LEVEL 29 MEQ/L (21-32); CHLORIDE LEVEL 106 MEQ/L (98-107); CREATININE FOR GFR 0.82 MG/DL (0.70-1.30); GLOMERULAR FILTRATION RATE > 60.0 (>56); GLUCOSE, FASTING 70 MG/DL (70-105); POTASSIUM SERUM 3.7 MEQ/L (3.5-5.1); SODIUM LEVEL 142 MEQ/L (136-145); TOTAL PROTEIN 4.4 GM/DL (6.4-8.2)
[2016-12-19 07:00] LABS: MEAN CORPUSCULAR HGB CONC 33.3 g/dl (32.0-36.5); MEAN CORPUSCULAR VOLUME 92.9 fl (80.0-96.0); RED CELL DISTRIBUTION WIDTH 15.5 % (11.5-14.5); WHITE BLOOD COUNT 7.3 K/mm3 (4.0-10.0)
[2016-12-19] MEDS: ENOXAPARIN 40 MG/0.4 ML SYRINGE (J1650) SC SCH (09:00)
[2016-12-19] MEDS: MIDODRINE 5 MG TAB PO SCH ×3 (09:15→15:55)
[2016-12-19] MEDS: MEGESTROL 40 MG TAB PO SCH ×2 (09:16→21:15)
[2016-12-19] MEDS: OMEPRAZOLE 20 MG CAP PO SCH ×2 (09:16→21:15)
[2016-12-19] MEDS: FUROSEMIDE 20 MG/2 ML VIAL (J1940) IV SCH (09:17)
[2016-12-19] MEDS: MORPHINE 15 MG SA TAB PO SCH ×2 (09:41→21:14)
[2016-12-19] MEDS: ONDANSETRON 4 MG TAB (S0181) PO PRN (09:44)
--- NOTE | 2016-12-19 10:52 | IPNPDOC ---
Subjective Date Seen The patient was seen on 12/19/16. Subjective Chief Complaint/HPI The patient is a 56-year-old male admitted with a reason for visit of Dehydration. Events since last encounter Pt states he is having diarrhea. Still retaining fluid. Denies CP, SOB. Constitutional: Denies: Chills, Fever Pulmonary: Denies: Dyspnea Cardiovascular: Denies: Chest Pain Gastrointestinal: Reports: Abdominal Pain, Diarrhea Objective Physical Examination General Exam: Positive: No Acute Distress Eye Exam: Positive: Conjunctiva & lids normal ENT Exam: Positive: Mucous membr. moist/pink Neck Exam: Negative: Lymphadenopathy Chest Exam: Positive: Clear to auscultation, Normal air movement Heart Exam: Positive: Rate Normal, Normal S1, Normal S2 Abdomen Exam: Positive: Normal bowel sounds, Soft Extremity Exam: Positive: Edema Psych Exam: Positive: Mood NL, Oriented x 3 Assessment /Plan Problems (1) C. difficile colitis Status: Acute Problem Specific Plan: Monitor Clinically, Repeat Labs Problem Text: 12/19 - C Diff. On PO Vanco 12/18 - C Diff positive. Started on PO Vanco. (2) Edema Problem Specific Plan: Monitor Clinically, Repeat Labs Problem Text: Getting Lasix 20 mg IV daily. (3) Dehydration Status: Resolved Problem Specific Plan: Monitor Clinically, Repeat Labs Problem Text: His BUN and creatinine are improving a little with hydration from yesterday. However I believe we found the answer to why his urine output is so low. It's his very low oncotic pressure related to the nephrotic syndrome from his amyloidosis. I'll change the focus from rehydration to improving his protein status. (4) Amyloidosis Status: Chronic Problem Specific Plan: Monitor Clinically Problem Text: He has several organ systems that are involved with the amyloidosis. Follows with Onc as outpt. 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 Nutrition did a consultation today and recommended ensure original 3 times a day in between meals. I spent some time explaining to the patient why this was so important. He is committed to "beating this thing" so he was very happy to have something he could do to help improve his own clinical status. (6) Metabolic encephalopathy Status: Resolved Problem Specific Plan: Monitor Clinically Problem Text: resolved Plan/VTE VTE Prophylaxis Ordered?: Yes Plan IVF: Continue Diet: Supplement Family Medicine Attending Note: I saw and examined Mr. Ortega, discussed with MARIPOSA Rinaldi. Agree with their note as documented. Mr. Ortega reports that his legs are more swollen today. I believe that this is true, but only slightly so. He has 2-3 mm of bimalleolar edema rather than 1-2. He is wearing his compression stockings. I reinforced that we are working on moving his fluid into the intravascular space by improving his albumin levels nutritionally. If his swelling continues to become worse we may need to consider an albumin transfusion to redistribute his fluid, even if this is only a temporary solution. 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, I&O, 24H, Fishbone Vital Signs/I&O Vital Signs Date Time Temp Pulse Resp B/P (MAP) Pulse Ox O2 Delivery O2 Flow Rate FiO2 12/19/16 10:00 99.8 99 15 100/73 (82) 94 Room Air I&O- Last 24 Hours up to 6 AM 12/19/16 06:00 Intake Total 2020 ml Output Total 1550 ml Balance 470 ml Laboratory Data 24H LABS Laboratory Tests 2 12/19/16 06:11: Anion Gap 7L, Glomerular Filtration Rate > 60.0, Blood Urea Nitrogen 14, Creatinine 0.82, Sodium Level 142, Potassium Level 3.7, Chloride Level 106, Carbon Dioxide Level 29, Calcium Level 7.4L, Aspartate Amino Transf (AST/SGOT) 30, Alanine Aminotransferase (ALT/SGPT) 18, Alkaline Phosphatase 382H, Total Bilirubin 0.2, Total Protein 4.4L, Albumin 1.2L, Albumin/Globulin Ratio 0.38L CBC/BMP Laboratory Tests 12/19/16 06:11 Red Blood Count 3.82 L, Mean Corpuscular Volume 92.9, Mean Corpuscular Hemoglobin 31.0, Mean Corpuscular Hemoglobin Concent 33.3, Red Cell Distribution Width 15.5 H, Calcium Level 7.4 L, Aspartate Amino Transf (AST/SGOT ) 30, Alanine Aminotransferase (ALT/SGPT) 18, Alkaline Phosphatase 382 H, Total Bilirubin 0.2, Total Protein 4.4 L, Albumin 1.2 L Microbiology Microbiology 12/13/16 Blood Culture - Final, Complete 12/13/16 Blood Culture - Final, Complete 12/17/16 Gastrointestinal Tract Panel (PCR) - Final, Complete Clostridium Difficile A/B 12/13/16 Influenza Virus Type A Antigen - Final, Complete 12/13/16 Influenza Virus Type B Antigen - Final, Complete 12/13/16 Urine Culture - Final, Complete Maulik Terry Dec 19, 2016 10:52 Juan C Aranda MD Dec 20, 2016 23:35
[2016-12-19] MEDS: DRONABINOL 2.5 MG CAP (MARINOL) PO SCH ×2 (12:32→17:40)
[2016-12-19] MEDS: MIRTAZAPINE 15 MG TAB PO SCH (21:16)
[2016-12-20 02:00] VITALS: BP 162/108
[2016-12-20] MEDS: oxyCODONE 5MG TAB PO PRN ×2 (02:31→13:38)
[2016-12-20 06:00] VITALS: BP 140/108
[2016-12-20] MEDS: LEVOTHYROXINE 125MCG TABLET (0.125MG) PO SCH (06:04)
[2016-12-20] MEDS: VANCOMYCIN ORAL SOL 250MG/5ML ORAL SYRINGE PO SCH ×4 (06:04→17:25)
[2016-12-20 06:41] LABS: MEAN CORPUSCULAR HEMOGLOBIN 31.3 pg (27.0-33.0); MEAN CORPUSCULAR HGB CONC 32.9 g/dl (32.0-36.5); MEAN CORPUSCULAR VOLUME 95.1 fl (80.0-96.0); RED CELL DISTRIBUTION WIDTH 15.8 % (11.5-14.5); WHITE BLOOD COUNT 8.6 K/mm3 (4.0-10.0)
[2016-12-20 06:56] LABS: ANION GAP 8 MEQ/L (8-16); BLOOD UREA NITROGEN 13 MG/DL (7-18); CALCIUM LEVEL 7.7 MG/DL (8.5-10.1); CARBON DIOXIDE LEVEL 29 MEQ/L (21-32); CHLORIDE LEVEL 105 MEQ/L (98-107); CREATININE FOR GFR 0.86 MG/DL (0.70-1.30); GLOMERULAR FILTRATION RATE > 60.0 (>56); GLUCOSE, FASTING 80 MG/DL (70-105); POTASSIUM SERUM 3.6 MEQ/L (3.5-5.1); SODIUM LEVEL 142 MEQ/L (136-145)
[2016-12-20] MEDS: MORPHINE 15 MG SA TAB PO SCH ×2 (08:12→20:27)
[2016-12-20] MEDS: OMEPRAZOLE 20 MG CAP PO SCH ×2 (08:13→20:27)
[2016-12-20] MEDS: MIDODRINE 5 MG TAB PO SCH (08:13)
[2016-12-20] MEDS: MEGESTROL 40 MG TAB PO SCH ×2 (08:13→20:27)
[2016-12-20] MEDS: FUROSEMIDE 20 MG/2 ML VIAL (J1940) IV SCH (08:14)
[2016-12-20] MEDS: ENOXAPARIN 40 MG/0.4 ML SYRINGE (J1650) SC SCH (08:14)
[2016-12-20 10:00] VITALS: BP 138/96
--- NOTE | 2016-12-20 11:06 | IPNPDOC ---
Subjective Date Seen The patient was seen on 12/20/16. Subjective Chief Complaint/HPI The patient is a 56-year-old male admitted with a reason for visit of Dehydration. Events since last encounter He thinks his legs are slightly less swollen today. Still having diarrhea, but he is convinced this is from the ensure. Constitutional: Denies: Chills, Fever Pulmonary: Denies: Dyspnea, Cough Cardiovascular: Denies: Chest Pain, Palpitations, Orthopnea Gastrointestinal: Reports: Diarrhea, Denies: Nausea, Vomiting, Abdominal Pain, Constipation Objective Physical Examination General Exam: Positive: No Acute Distress Eye Exam: Positive: Conjunctiva & lids normal ENT Exam: Positive: Mucous membr. moist/pink Neck Exam: Negative: Lymphadenopathy Chest Exam: Positive: Clear to auscultation, Normal air movement Heart Exam: Positive: Rate Normal, Normal S1, Normal S2 Abdomen Exam: Positive: Normal bowel sounds, Soft Extremity Exam: Positive: Edema Psych Exam: Positive: Mood NL, Oriented x 3 Assessment /Plan Problems (1) Edema Problem Specific Plan: Monitor Clinically, Repeat Labs Problem Text: Getting Lasix 20 mg IV daily - edema minimally improved Albumin low and may benefit from IV albumin to see if he can mobilize some of the fluid - Defer to Attending (2) Chronic orthostatic hypotension Status: Chronic Problem Text: BP running high on Midodrine Patient reports that his specialist recommends cutting back his Midodrine if BP running high - I will decrease dose (3) C. difficile colitis Status: Acute Problem Specific Plan: Monitor Clinically, Repeat Labs Problem Text: 12/20 - patient thinks his diarrhea correlates with the ensure - he is working with dietary to find other protein rich sources of nutrition. In th meantime he is on oral Vanco for C. Diff positive GI panel. continue this for now and monitor for improvement of diarrhea with d/.c of ensure 12/19 - C Diff. On PO Vanco 12/18 - C Diff positive. Started on PO Vanco. (4) Dehydration Status: Resolved Problem Specific Plan: Monitor Clinically, Repeat Labs Problem Text: 12/20 - BUN/Cre - normalized. we found the answer to why his urine output is so low. It's his very low oncotic pressure related to the nephrotic syndrome from his amyloidosis. I'll change the focus from rehydration to improving his protein status. (5) Amyloidosis Status: Chronic Problem Specific Plan: Monitor Clinically Problem Text: He has several organ systems that are involved with the amyloidosis. Follows with Onc as outpt. 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 Nutrition did a consultation today and recommended ensure original 3 times a day in between meals. I spent some time explaining to the patient why this was so important. He is committed to "beating this thing" so he was very happy to have something he could do to help improve his own clinical status. (7) Metabolic encephalopathy Status: Resolved Problem Specific Plan: Monitor Clinically Problem Text: resolved Plan/VTE VTE Prophylaxis Ordered?: Yes Plan IVF: Continue Diet: Supplement Family Medicine Attending Note: I saw and examined Mr. Ortega, discussed with MARIPOSA Dee. Agree with their note as documented. His LE edema seems just a little better to me today. He reports that he has been working hard at keeping his legs up and I think this is doing as well as any dietary supplement at this point in time. I was considering using an albumen infusion to temporarily mobilize 3rd spaced fluid, but I will hold off on doing this today as he is making some improvement with out this measure. He also has become convinced that when he takes the meal supplement to boost his protein he gets diarrhea about 30 minutes later. This makes sense, but also casts some doubt as to whether he has C. diff colitis (which we started treating him with Flagyl and Vanco several days ago) or whether he was colonized with C. diff, having diarrhea from the supplement, and we happened to find the C. diff DNA with PCR. I am going to leave him on his abx for now, but would encourage the next physician rounding to keep a healthy dose of skepticism with regards to whether he has C. diff colitis or whether he actually needs the abx. 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, I&O, 24H, Fishbone Vital Signs/I&O Vital Signs Date Time Temp Pulse Resp B/P (MAP) Pulse Ox O2 Delivery O2 Flow Rate FiO2 12/20/16 08:12 19 12/20/16 06:00 98.8 103 140/108 (119) 97 Room Air I&O- Last 24 Hours up to 6 AM 12/20/16 06:00 Intake Total 1820 ml Output Total 1750 ml Balance 70 ml Laboratory Data 24H LABS Laboratory Tests 2 12/20/16 06:19: Anion Gap 8, Glomerular Filtration Rate > 60.0, Blood Urea Nitrogen 13, Creatinine 0.86, Sodium Level 142, Potassium Level 3.6, Chloride Level 105, Carbon Dioxide Level 29, Calcium Level 7.7L CBC/BMP Laboratory Tests 12/20/16 06:19 Red Blood Count 4.21 L, Mean Corpuscular Volume 95.1, Mean Corpuscular Hemoglobin 31.3, Mean Corpuscular Hemoglobin Concent 32.9, Red Cell Distribution Width 15.8 H, Calcium Level 7.7 L Microbiology Microbiology 12/13/16 Blood Culture - Final, Complete 12/13/16 Blood Culture - Final, Complete 12/17/16 Gastrointestinal Tract Panel (PCR) - Final, Complete Clostridium Difficile A/B 12/13/16 Influenza Virus Type A Antigen - Final, Complete 12/13/16 Influenza Virus Type B Antigen - Final, Complete 12/13/16 Urine Culture - Final, Complete GERRY GIL PA-C Dec 20, 2016 11:06 Juan C Aranda MD Dec 20, 2016 23:56
[2016-12-20] MEDS: DRONABINOL 2.5 MG CAP (MARINOL) PO SCH ×2 (11:53→17:25)
[2016-12-20] MEDS: MIDODRINE 2.5 MG TAB PO SCH ×2 (12:52→16:28)
[2016-12-20 14:00] VITALS: BP 139/98
[2016-12-20 18:00] VITALS: BP 154/102
[2016-12-20 22:00] VITALS: BP 110/88
[2016-12-20] MEDS: MIRTAZAPINE 15 MG TAB PO SCH (22:00)
[2016-12-21] MEDS: VANCOMYCIN ORAL SOL 250MG/5ML ORAL SYRINGE PO SCH ×4 (00:51→17:05)
[2016-12-21] MEDS: oxyCODONE 5MG TAB PO PRN ×5 (00:51→21:55)
[2016-12-21 02:00] VITALS: BP 140/98
[2016-12-21 05:45] LABS: MEAN CORPUSCULAR HGB CONC 32.9 g/dl (32.0-36.5); MEAN CORPUSCULAR VOLUME 94.2 fl (80.0-96.0); RED CELL DISTRIBUTION WIDTH 15.8 % (11.5-14.5); WHITE BLOOD COUNT 7.1 K/mm3 (4.0-10.0)
[2016-12-21] MEDS: LEVOTHYROXINE 125MCG TABLET (0.125MG) PO SCH (05:59)
[2016-12-21 06:00] VITALS: BP 160/110
[2016-12-21 06:00] LABS: ALBUMIN 1.1 GM/DL (3.2-5.2); ALBUMIN/GLOBULIN RATIO 0.38 (1.00-1.93); ALKALINE PHOSPHATASE 339 U/L (45-117); ALT/SGPT 19 U/L (12-78); ANION GAP 7 MEQ/L (8-16); AST/SGOT 26 U/L (15-37); BILIRUBIN,TOTAL 0.2 MG/DL (0.2-1.0); BLOOD UREA NITROGEN 14 MG/DL (7-18); CALCIUM LEVEL 7.3 MG/DL (8.5-10.1); CARBON DIOXIDE LEVEL 29 MEQ/L (21-32); CHLORIDE LEVEL 107 MEQ/L (98-107); CREATININE FOR GFR 0.74 MG/DL (0.70-1.30); GLOMERULAR FILTRATION RATE > 60.0 (>56); GLUCOSE, FASTING 76 MG/DL (70-105); POTASSIUM SERUM 3.4 MEQ/L (3.5-5.1); SODIUM LEVEL 143 MEQ/L (136-145)
[2016-12-21] MEDS: ENOXAPARIN 40 MG/0.4 ML SYRINGE (J1650) SC SCH (09:00)
[2016-12-21] MEDS: OMEPRAZOLE 20 MG CAP PO SCH (09:12)
[2016-12-21] MEDS: MORPHINE 15 MG SA TAB PO SCH ×2 (09:13→20:06)
[2016-12-21] MEDS: MEGESTROL 40 MG TAB PO SCH ×2 (09:14→20:07)
[2016-12-21] MEDS: MIDODRINE 2.5 MG TAB PO SCH ×3 (09:14→16:49)
[2016-12-21] MEDS: FUROSEMIDE 20 MG/2 ML VIAL (J1940) IV SCH (09:14)
[2016-12-21 10:00] VITALS: BP 121/73
--- NOTE | 2016-12-21 11:14 | IPN ---
DATE: 12/21/2016 Pete is seen [facility]. He is admitted with hypotension, dehydration secondary to amyloidosis, nephrotic syndrome from amyloidosis. He has developed Clostridium difficile colitis. I do think he has actual colitis, has been discussion with his diarrhea might be osmatic related to his Ensure, but he says he has had abdominal distension, abdominal pain and think that is more consistent with corinna colitis. He is immunosuppressed from the amyloidosis. He has severely low albumins secondary to nephrotic syndrome which is contributing to the edema problems as well. PHYSICAL EXAMINATION: 148/98 to 160/110, pulse is 90, respiratory rate 18, 100% oxygen saturation. GENERAL APPEARANCE: Chronically ill, cachectic, lying in bed, dark room and looks severely ill. LUNGS: Decreased breath sounds. HEART: Regular rate and rhythm. ABDOMEN: Mildly distended, diffusely mildly tender. 1+ peripheral edema. LABORATORY: Sodium was 143, potassium 3.4, albumin 1.1. Complete blood count (CBC) is stable. IMPRESSION: 1. Clostridium difficile colitis. I am increasing his vancomycin dose to 50 mg every 6 hours to reduce immunosuppressed state. Called his , case discussed. 2. Orthostatic hypotension. He uses Midodrine 250 mg three times a day. His blood pressure is up a bit. Will have to back off on the dose of this. 3. Edema secondary to protein calorie malnutrition and loss of albumin. He is getting IV Lasix, not sure now much that is going to help. Will continue with this. Might consider giving him albumin infusions. 4. Cachexia. He is on both Megace and Marinol. He wants tomato sauce with pasta for dinner tonight, so something must be working. 5. Chronic pain syndrome. Continue current analgesics. 6. Hypothyroidism. Continue dose of Levothyroxine. 7. Amyloidosis. He is end stage and no further treatment is planned by either his oncologist at the [facility] or oncologist, Dr. West at [facility]. The patient is full code and has rescinding previously discussed DO NOT RESUSCITATE (DNR).
[2016-12-21 12:00] VITALS: BP 136/70
[2016-12-21] MEDS: DRONABINOL 2.5 MG CAP (MARINOL) PO SCH ×2 (12:25→16:49)
[2016-12-21 18:00] VITALS: BP 114/84
[2016-12-21] MEDS: MIRTAZAPINE 15 MG TAB PO SCH (21:54)
[2016-12-21 22:00] VITALS: BP 150/94
[2016-12-22] MEDS: VANCOMYCIN ORAL SOL 250MG/5ML ORAL SYRINGE PO SCH ×4 (00:17→17:09)
[2016-12-22 02:00] VITALS: BP 134/87
[2016-12-22] MEDS: oxyCODONE 5MG TAB PO PRN ×3 (04:09→21:50)
[2016-12-22 06:00] VITALS: BP 133/83
[2016-12-22 06:01] LABS: BASO % 0.3 % (0.0-1.0); EOS % 0.6 % (0.0-3.0); LARGE UNSTAINED CELL # 0.1 K/mm3 (0.0-0.4); LARGE UNSTAINED CELL % 1.5 % (0.0-4.0); LYMPH # 1.3 K/mm3 (1.5-4.5); LYMPH % 20.3 % (24.0-44.0); MEAN CORPUSCULAR HEMOGLOBIN 31.7 pg (27.0-33.0); MEAN CORPUSCULAR HGB CONC 34.3 g/dl (32.0-36.5); MEAN CORPUSCULAR VOLUME 92.5 fl (80.0-96.0); MONO # 0.5 K/mm3 (0.0-0.8); MONO % 7.2 % (0.0-5.0); NEUTROPHILS # 4.4 K/mm3 (1.8-7.7); NEUTROPHILS % 70.1 % (36.0-66.0); PLATELET COUNT, AUTOMATED 393 k/mm3 (150-450); RED CELL DISTRIBUTION WIDTH 15.5 % (11.5-14.5); WHITE BLOOD COUNT 6.3 K/mm3 (4.0-10.0)
[2016-12-22] MEDS: LEVOTHYROXINE 125MCG TABLET (0.125MG) PO SCH (06:11)
[2016-12-22 06:24] LABS: ALBUMIN 1.1 GM/DL (3.2-5.2); ALBUMIN/GLOBULIN RATIO 0.38 (1.00-1.93); ALKALINE PHOSPHATASE 340 U/L (45-117); ALT/SGPT 22 U/L (12-78); ANION GAP 5 MEQ/L (8-16); AST/SGOT 29 U/L (15-37); BILIRUBIN,TOTAL 0.2 MG/DL (0.2-1.0); BLOOD UREA NITROGEN 13 MG/DL (7-18); CALCIUM LEVEL 7.5 MG/DL (8.5-10.1); CARBON DIOXIDE LEVEL 32 MEQ/L (21-32); CHLORIDE LEVEL 106 MEQ/L (98-107); CREATININE FOR GFR 0.82 MG/DL (0.70-1.30); GLOMERULAR FILTRATION RATE > 60.0 (>56); GLUCOSE, FASTING 72 MG/DL (70-105); POTASSIUM SERUM 3.6 MEQ/L (3.5-5.1); SODIUM LEVEL 143 MEQ/L (136-145)
[2016-12-22] MEDS: MORPHINE 15 MG SA TAB PO SCH ×2 (09:01→20:12)
[2016-12-22] MEDS: MIDODRINE 2.5 MG TAB PO SCH ×3 (09:01→16:38)
[2016-12-22] MEDS: FUROSEMIDE 20 MG/2 ML VIAL (J1940) IV SCH (09:01)
[2016-12-22] MEDS: MEGESTROL 40 MG TAB PO SCH ×2 (09:01→20:12)
[2016-12-22] MEDS: DRONABINOL 2.5 MG CAP (MARINOL) PO SCH ×2 (12:05→16:38)
[2016-12-22] MEDS: KCL 20MEQ IN 0.45NS 1000ML 1,000 ML IV SCH ×2 (12:59→21:53)
[2016-12-22 14:00] VITALS: BP 119/83
--- NOTE | 2016-12-22 14:08 | IPN ---
DATE: 12/22/2016 Pete is still having diarrhea and abdominal pain. He had Clostridium (C) difficile colitis, is being suppressed from his end-stage amyloidosis with severe protein calorie malnutrition secondary to albumin loss from nephrotic syndrome. He feels he is becoming dehydrated. He thinks the diarrhea is getting ahead of his daily maintained oral hydration. So I am restarting intravenous (IV) fluids today. PHYSICAL EXAMINATION: Afebrile, 133/83, pulse 89, respiratory rate 18. He looks unchanged from yesterday, severely chronically ill. Lungs: Clear. Heart: Regular rate and rhythm. Abdomen: Soft, diffusely mildly tender. Trace to 1+ peripheral edema. LABORATORIES: Potassium 3.6. BUN 13. Creatinine 0.8. White count 6.3. Hemoglobin 11. IMPRESSION: 1. Clostridium difficile colitis. Continue with vancomycin 250 mg every 6 hours. I increased the dose from 125 to 250 mg due to is immunosuppressed state. Case discussed with his in person yesterday. 2. Orthostatic hypotension. His blood pressure is under good control. Yesterday it was a little high and I was wondering if he we needed to back off the Midodrine, but he is doing fine at the current dose of 250 mg three times a day. 3. Edema. I think most of this is due to loss of albumin. Continue IV Lasix. If it gets worse, may do albumin infusions. 4. Cachexia. He is on Megace and Marinol. He did not feel he had the appetite to have food brought in yesterday. He wants me to restart IV fluid. He feels like he is getting dehydrated. So I will run some IV fluids for another day. 5. Amyloidosis, end-stage. The patient is FULL CODE. Hold the furosemide today as he is getting IV fluids.
[2016-12-22] MEDS: MIRTAZAPINE 15 MG TAB PO SCH (20:12)
[2016-12-22] MEDS: ONDANSETRON 4 MG TAB (S0181) PO PRN (21:51)
[2016-12-22 22:00] VITALS: BP 136/96
[2016-12-23] MEDS: VANCOMYCIN ORAL SOL 250MG/5ML ORAL SYRINGE PO SCH ×4 (00:02→17:46)
[2016-12-23] MEDS: oxyCODONE 5MG TAB PO PRN ×3 (04:15→21:34)
[2016-12-23 06:00] VITALS: BP 178/92
[2016-12-23 06:02] LABS: BASO % 0.8 % (0.0-1.0); EOS # 0.1 K/mm3 (0.0-0.50); EOS % 1.5 % (0.0-3.0); LARGE UNSTAINED CELL # 0.1 K/mm3 (0.0-0.4); LARGE UNSTAINED CELL % 1.1 % (0.0-4.0); LYMPH # 1.3 K/mm3 (1.5-4.5); LYMPH % 20.6 % (24.0-44.0); MEAN CORPUSCULAR HEMOGLOBIN 30.9 pg (27.0-33.0); MEAN CORPUSCULAR HGB CONC 32.6 g/dl (32.0-36.5); MEAN CORPUSCULAR VOLUME 94.7 fl (80.0-96.0); MONO # 0.4 K/mm3 (0.0-0.8); MONO % 6.7 % (0.0-5.0); NEUTROPHILS # 4.3 K/mm3 (1.8-7.7); NEUTROPHILS % 69.3 % (36.0-66.0); PLATELET COUNT, AUTOMATED 386 k/mm3 (150-450); RED CELL DISTRIBUTION WIDTH 15.6 % (11.5-14.5); WHITE BLOOD COUNT 6.2 K/mm3 (4.0-10.0)
[2016-12-23 06:27] LABS: ALBUMIN 1.1 GM/DL (3.2-5.2); ALBUMIN/GLOBULIN RATIO 0.48 (1.00-1.93); ALKALINE PHOSPHATASE 363 U/L (45-117); ALT/SGPT 22 U/L (12-78); ANION GAP 4 MEQ/L (8-16); AST/SGOT 25 U/L (15-37); BILIRUBIN,TOTAL 0.2 MG/DL (0.2-1.0); BLOOD UREA NITROGEN 12 MG/DL (7-18); CALCIUM LEVEL 7.2 MG/DL (8.5-10.1); CARBON DIOXIDE LEVEL 31 MEQ/L (21-32); CHLORIDE LEVEL 105 MEQ/L (98-107); CREATININE FOR GFR 0.77 MG/DL (0.70-1.30); GLOMERULAR FILTRATION RATE > 60.0 (>56); GLUCOSE, FASTING 70 MG/DL (70-105); POTASSIUM SERUM 3.9 MEQ/L (3.5-5.1); SODIUM LEVEL 140 MEQ/L (136-145); TOTAL PROTEIN 3.4 GM/DL (6.4-8.2)
[2016-12-23] MEDS: LEVOTHYROXINE 125MCG TABLET (0.125MG) PO SCH (06:41)
[2016-12-23] MEDS: MIDODRINE 2.5 MG TAB PO SCH ×3 (07:58→16:57)
[2016-12-23] MEDS: MEGESTROL 40 MG TAB PO SCH ×2 (09:35→21:16)
[2016-12-23] MEDS: MORPHINE 15 MG SA TAB PO SCH ×2 (09:36→21:18)
[2016-12-23] MEDS: KCL 20MEQ IN 0.45NS 1000ML 1,000 ML IV SCH (09:36)
[2016-12-23] MEDS: DRONABINOL 2.5 MG CAP (MARINOL) PO SCH ×2 (12:18→17:46)
[2016-12-23] MEDS: ONDANSETRON 4 MG TAB (S0181) PO PRN (12:21)
--- NOTE | 2016-12-23 13:44 | IPNPDOC ---
Subjective Date Seen The patient was seen on 12/23/16. Subjective Chief Complaint/HPI The patient is a 56-year-old male admitted with a reason for visit of Dehydration. Events since last encounter Noting better appetite. Feeling better with IVF also. Drinking well. 1 soft stool per day. Constitutional: Denies: Chills, Fever, Night Sweats Cardiovascular: Denies: Chest Pain, Palpitations, Orthopnea, Paroxysmal Noc. Dyspnea, Lt Headedness Gastrointestinal: Reports: Diarrhea, Denies: Nausea, Vomiting, Abdominal Pain, Constipation Genitourinary: Denies: Dysuria, Frequency, Incontinence, Retention Psych: Reports: Mood Normal, Denies: Depression, Memory Issues Objective Physical Examination General Exam: Positive: No Acute Distress Eye Exam: Positive: Conjunctiva & lids normal ENT Exam: Positive: Mucous membr. moist/pink Neck Exam: Negative: Lymphadenopathy Chest Exam: Positive: Clear to auscultation, Normal air movement Heart Exam: Positive: Rate Normal, Normal S1, Normal S2 Abdomen Exam: Positive: Normal bowel sounds, Soft Extremity Exam: Positive: Edema Psych Exam: Positive: Mood NL, Oriented x 3 Assessment /Plan Problems (1) C. difficile colitis Status: Acute Problem Specific Plan: Monitor Clinically, Repeat Labs Problem Text: 12/23/16: Vancomycin 250 mg po q 6 hrs. Will need higher dosing due to immunocompromise. 12/18 - C Diff positive. Started on PO Vanco. (2) Dehydration Status: Resolved Problem Specific Plan: Monitor Clinically, Repeat Labs Problem Text: 12/23/16: Tolerating po well. DC IVF> re-eval in am. We continue to focus on improving his protein intake in order to improve his oncotic pressure. (3) Amyloidosis Status: Chronic Problem Specific Plan: Monitor Clinically Problem Text: 12/23/16: On midodrine due to chronic hypotension with Amyloidosis. Currently on HOLD due to hypertension in 170s systolic. He has several organ systems that are involved with the amyloidosis. Follows with Onc as outpt. 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 Nutrition recommended ensure original 3 times a day in between meals. (5) Metabolic encephalopathy Status: Resolved Problem Specific Plan: Monitor Clinically Problem Text: resolved (6) Orthostatic hypotension Status: Chronic Response to Treatment: Stable Problem Text: Stable on HD midodrine 2.5 TID-defer decreasing dose during acute illness (c secondary hypovolemia) Plan/VTE VTE Prophylaxis Ordered?: Yes Plan IVF: Continue Diet: Supplement VS, I&O, 24H, Fishbone Vital Signs/I&O Vital Signs Date Time Temp Pulse Resp B/P (MAP) Pulse Ox O2 Delivery O2 Flow Rate FiO2 12/23/16 09:36 18 12/23/16 09:00 Room Air 12/23/16 06:00 97.8 111 178/92 (120) 95 I&O- Last 24 Hours up to 6 AM 12/23/16 05:59 Intake Total 2760 ml Output Total 1300 ml Balance 1460 ml Laboratory Data 24H LABS Laboratory Tests 2 12/23/16 05:49: White Blood Count 6.2, Red Blood Count 3.30L, Hemoglobin 10.2L, Hematocrit 31.3L , Mean Corpuscular Volume 94.7, Mean Corpuscular Hemoglobin 30.9, Mean Corpuscular Hemoglobin Concent 32.6, Red Cell Distribution Width 15.6H, Platelet Count 386, Neutrophils (%) (Auto) 69.3H, Lymphocytes (%) (Auto) 20.6L, Monocytes (%) (Auto) 6.7H, Eosinophils (%) (Auto) 1.5, Basophils (%) (Auto) 0.8 , Neutrophils # (Auto) 4.3, Lymphocytes # (Auto) 1.3L, Monocytes # (Auto) 0.4, Eosinophils # (Auto) 0.1, Basophils # (Auto) 0.0, Large Unclassified Cells % 1.1 , Large Unclassified Cells # 0.1, Anion Gap 4L, Glomerular Filtration Rate > 60.0, Blood Urea Nitrogen 12, Creatinine 0.77, Sodium Level 140, Potassium Level 3.9, Chloride Level 105, Carbon Dioxide Level 31, Calcium Level 7.2L, Aspartate Amino Transf (AST/SGOT) 25, Alanine Aminotransferase (ALT/SGPT) 22, Alkaline Phosphatase 363H, Total Bilirubin 0.2, Total Protein 3.4L, Albumin 1.1L , Albumin/Globulin Ratio 0.48L CBC/BMP Laboratory Tests 12/23/16 05:49 Red Blood Count 3.30 L, Mean Corpuscular Volume 94.7, Mean Corpuscular Hemoglobin 30.9, Mean Corpuscular Hemoglobin Concent 32.6, Red Cell Distribution Width 15.6 H, Neutrophils (%) (Auto) 69.3 H, Lymphocytes (%) (Auto ) 20.6 L, Monocytes (%) (Auto) 6.7 H, Eosinophils (%) (Auto) 1.5, Basophils (%) (Auto) 0.8, Neutrophils # (Auto) 4.3, Lymphocytes # (Auto) 1.3 L, Monocytes # ( Auto) 0.4, Eosinophils # (Auto) 0.1, Basophils # (Auto) 0.0, Calcium Level 7.2 L , Aspartate Amino Transf (AST/SGOT) 25, Alanine Aminotransferase (ALT/SGPT) 22, Alkaline Phosphatase 363 H, Total Bilirubin 0.2, Total Protein 3.4 L, Albumin 1.1 L Microbiology Microbiology 12/13/16 Blood Culture - Final, Complete 12/13/16 Blood Culture - Final, Complete 12/17/16 Gastrointestinal Tract Panel (PCR) - Final, Complete Clostridium Difficile A/B 12/13/16 Influenza Virus Type A Antigen - Final, Complete 12/13/16 Influenza Virus Type B Antigen - Final, Complete 12/13/16 Urine Culture - Final, Complete Hallie Carl Dec 23, 2016 13:44 Nakul Duffy M.D. Dec 23, 2016 17:05
[2016-12-23 14:00] VITALS: BP 144/96
[2016-12-23] MEDS: MIRTAZAPINE 15 MG TAB PO SCH (21:15)
[2016-12-23 22:00] VITALS: BP 134/66
[2016-12-24] MEDS: VANCOMYCIN ORAL SOL 250MG/5ML ORAL SYRINGE PO SCH ×4 (00:14→17:04)
[2016-12-24 02:00] VITALS: BP 105/55
[2016-12-24] MEDS: oxyCODONE 5MG TAB PO PRN ×2 (05:16→11:53)
[2016-12-24] MEDS: LEVOTHYROXINE 125MCG TABLET (0.125MG) PO SCH (05:39)
[2016-12-24 06:00] VITALS: BP 139/85
[2016-12-24 06:28] LABS: BASO % 0.4 % (0.0-1.0); EOS # 0.1 K/mm3 (0.0-0.50); EOS % 0.7 % (0.0-3.0); LARGE UNSTAINED CELL # 0.1 K/mm3 (0.0-0.4); LARGE UNSTAINED CELL % 1.8 % (0.0-4.0); LYMPH # 1.4 K/mm3 (1.5-4.5); LYMPH % 19.3 % (24.0-44.0); MEAN CORPUSCULAR HEMOGLOBIN 31.4 pg (27.0-33.0); MEAN CORPUSCULAR HGB CONC 32.9 g/dl (32.0-36.5); MEAN CORPUSCULAR VOLUME 95.5 fl (80.0-96.0); MONO # 0.5 K/mm3 (0.0-0.8); MONO % 6.5 % (0.0-5.0); NEUTROPHILS # 5.3 K/mm3 (1.8-7.7); NEUTROPHILS % 71.2 % (36.0-66.0); RED CELL DISTRIBUTION WIDTH 15.4 % (11.5-14.5); WHITE BLOOD COUNT 7.4 K/mm3 (4.0-10.0)
[2016-12-24 06:34] LABS: PLATELET COUNT, AUTOMATED 426 k/mm3 (150-450)
[2016-12-24 06:42] LABS: ALBUMIN 1.3 GM/DL (3.2-5.2); ALBUMIN/GLOBULIN RATIO 0.38 (1.00-1.93); ALKALINE PHOSPHATASE 437 U/L (45-117); ALT/SGPT 27 U/L (12-78); ANION GAP 5 MEQ/L (8-16); AST/SGOT 37 U/L (15-37); BILIRUBIN,TOTAL 0.2 MG/DL (0.2-1.0); BLOOD UREA NITROGEN 12 MG/DL (7-18); CALCIUM LEVEL 7.6 MG/DL (8.5-10.1); CARBON DIOXIDE LEVEL 31 MEQ/L (21-32); CHLORIDE LEVEL 103 MEQ/L (98-107); CREATININE FOR GFR 0.99 MG/DL (0.70-1.30); GLOMERULAR FILTRATION RATE > 60.0 (>56); GLUCOSE, FASTING 72 MG/DL (70-105); POTASSIUM SERUM 3.7 MEQ/L (3.5-5.1); SODIUM LEVEL 139 MEQ/L (136-145); TOTAL PROTEIN 4.7 GM/DL (6.4-8.2)
[2016-12-24] MEDS: MORPHINE 15 MG SA TAB PO SCH ×2 (08:41→21:24)
[2016-12-24] MEDS: MIDODRINE 2.5 MG TAB PO SCH ×3 (08:41→17:55)
[2016-12-24] MEDS: MEGESTROL 40 MG TAB PO SCH ×2 (08:42→21:21)
--- NOTE | 2016-12-24 09:46 | IPNPDOC ---
Subjective Date Seen The patient was seen on 12/24/16. Subjective Chief Complaint/HPI The patient is a 56-year-old male admitted with a reason for visit of Dehydration. Events since last encounter c/o nausea today. 1 large soft BM. Slight temp elevation 100.1 overnight. Denies cold chills. C/o rash forming, usually associated amyloidosis flare. Constitutional: Denies: Chills, Fever, Night Sweats ENT: Denies: Head Aches, Ear Pain, Dysphagia Skin: Denies: Rash, Lesions, Breakdown Pulmonary: Denies: Dyspnea, Cough Cardiovascular: Denies: Chest Pain, Palpitations, Orthopnea, Paroxysmal Noc. Dyspnea, Lt Headedness Gastrointestinal: Reports: Nausea, Abdominal Pain, Diarrhea, Denies: Vomiting Genitourinary: Denies: Dysuria, Frequency, Incontinence, Retention Psych: Reports: Mood Normal, Denies: Depression, Memory Issues Objective Physical Examination General Exam: Positive: No Acute Distress Eye Exam: Positive: Conjunctiva & lids normal ENT Exam: Positive: Mucous membr. moist/pink Neck Exam: Negative: Lymphadenopathy Chest Exam: Positive: Clear to auscultation, Normal air movement Heart Exam: Positive: Rate Normal, Normal S1, Normal S2 Abdomen Exam: Positive: Normal bowel sounds, Soft, Tenderness (throughout) Extremity Exam: Positive: Edema Skin Exam: Positive: Other skin issue (mild erythematous inflamed rash to left wrist and right forearm. ) Psych Exam: Positive: Mood NL, Oriented x 3 Assessment /Plan Problems (1) C. difficile colitis Status: Acute Problem Specific Plan: Monitor Clinically, Repeat Labs Problem Text: D4/14 vanco 250 QID 12/24 afebrile, WBC 8.4, stools more formed 12/18 - C Diff positive. Started on PO Vanco. (2) Dehydration Status: Resolved Problem Specific Plan: Monitor Clinically, Repeat Labs Problem Text: 12/24/16: 12/23/16: Tolerating po well. DC IVF> re-eval in am. We continue to focus on improving his protein intake in order to improve his oncotic pressure. (3) Amyloidosis Status: Chronic Problem Specific Plan: Monitor Clinically Problem Text: 12/24/16: Resumed midodrine due to hypovolemia and hypotension. 12/23/16: On midodrine due to chronic hypotension with Amyloidosis. Currently on HOLD due to hypertension in 170s systolic. He has several organ systems that are involved with the amyloidosis. Follows with Onc as outpt. 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 Nutrition recommended ensure original 3 times a day in between meals. (5) Metabolic encephalopathy Status: Resolved Problem Specific Plan: Monitor Clinically Problem Text: resolved (6) Orthostatic hypotension Status: Chronic Response to Treatment: Stable Problem Text: Stable on HD midodrine 2.5 TID-decrease to 1.25 TID if SBP >160, DBP>95 Plan/VTE VTE Prophylaxis Ordered?: Yes Plan IVF: Continue Diet: Supplement VS, I&O, 24H, Fishbone Vital Signs/I&O Vital Signs Date Time Temp Pulse Resp B/P (MAP) Pulse Ox O2 Delivery O2 Flow Rate FiO2 12/24/16 08:41 20 12/24/16 06:00 98.6 110 139/85 (103) 96 Room Air I&O- Last 24 Hours up to 6 AM 12/24/16 06:00 Intake Total 1100 ml Output Total 2300 ml Balance -1200 ml Laboratory Data 24H LABS Laboratory Tests 2 12/24/16 05:36: White Blood Count 7.4, Red Blood Count 3.83L, Hemoglobin 12.0L, Hematocrit 36.6L , Mean Corpuscular Volume 95.5, Mean Corpuscular Hemoglobin 31.4, Mean Corpuscular Hemoglobin Concent 32.9, Red Cell Distribution Width 15.4H, Platelet Count 426, Neutrophils (%) (Auto) 71.2H, Lymphocytes (%) (Auto) 19.3L, Monocytes (%) (Auto) 6.5H, Eosinophils (%) (Auto) 0.7, Basophils (%) (Auto) 0.4 , Neutrophils # (Auto) 5.3, Lymphocytes # (Auto) 1.4L, Monocytes # (Auto) 0.5, Eosinophils # (Auto) 0.1, Basophils # (Auto) 0.0, Large Unclassified Cells % 1.8 , Large Unclassified Cells # 0.1, Anion Gap 5L, Glomerular Filtration Rate > 60.0, Blood Urea Nitrogen 12, Creatinine 0.99, Sodium Level 139, Potassium Level 3.7, Chloride Level 103, Carbon Dioxide Level 31, Calcium Level 7.6L, Aspartate Amino Transf (AST/SGOT) 37, Alanine Aminotransferase (ALT/SGPT) 27, Alkaline Phosphatase 437H, Total Bilirubin 0.2, Total Protein 4.7#L, Albumin 1.3L, Albumin/Globulin Ratio 0.38L CBC/BMP Laboratory Tests 12/24/16 05:36 Red Blood Count 3.83 L, Mean Corpuscular Volume 95.5, Mean Corpuscular Hemoglobin 31.4, Mean Corpuscular Hemoglobin Concent 32.9, Red Cell Distribution Width 15.4 H, Neutrophils (%) (Auto) 71.2 H, Lymphocytes (%) (Auto ) 19.3 L, Monocytes (%) (Auto) 6.5 H, Eosinophils (%) (Auto) 0.7, Basophils (%) (Auto) 0.4, Neutrophils # (Auto) 5.3, Lymphocytes # (Auto) 1.4 L, Monocytes # ( Auto) 0.5, Eosinophils # (Auto) 0.1, Basophils # (Auto) 0.0, Calcium Level 7.6 L , Aspartate Amino Transf (AST/SGOT) 37, Alanine Aminotransferase (ALT/SGPT) 27, Alkaline Phosphatase 437 H, Total Bilirubin 0.2, Total Protein 4.7 #L, Albumin 1.3 L Microbiology Microbiology 12/17/16 Gastrointestinal Tract Panel (PCR) - Final, Complete Clostridium Difficile A/B Hallie Carl Dec 24, 2016 09:46 Nakul Duffy M.D. Dec 24, 2016 17:59
[2016-12-24 10:00] VITALS: BP 116/80
[2016-12-24] MEDS: ONDANSETRON 4 MG TAB (S0181) PO PRN (10:15)
[2016-12-24] MEDS: DRONABINOL 2.5 MG CAP (MARINOL) PO SCH ×2 (11:49→17:04)
[2016-12-24 14:00] VITALS: BP 130/82
[2016-12-24 18:00] VITALS: BP 140/91
[2016-12-24] MEDS: MIRTAZAPINE 15 MG TAB PO SCH (21:20)
[2016-12-24 22:00] VITALS: BP 136/89
[2016-12-25] MEDS: VANCOMYCIN ORAL SOL 250MG/5ML ORAL SYRINGE PO SCH ×5 (00:03→23:31)
[2016-12-25] MEDS: oxyCODONE 5MG TAB PO PRN ×4 (00:04→22:42)
[2016-12-25 02:00] VITALS: BP 128/87
[2016-12-25 06:00] VITALS: BP 112/70
[2016-12-25] MEDS: LEVOTHYROXINE 125MCG TABLET (0.125MG) PO SCH (06:03)
[2016-12-25 06:25] LABS: BASO % 0.3 % (0.0-1.0); EOS # 0.1 K/mm3 (0.0-0.50); EOS % 1.8 % (0.0-3.0); LARGE UNSTAINED CELL # 0.1 K/mm3 (0.0-0.4); LARGE UNSTAINED CELL % 1.1 % (0.0-4.0); LYMPH # 1.6 K/mm3 (1.5-4.5); LYMPH % 21.9 % (24.0-44.0); MEAN CORPUSCULAR HEMOGLOBIN 31.3 pg (27.0-33.0); MEAN CORPUSCULAR HGB CONC 33.1 g/dl (32.0-36.5); MEAN CORPUSCULAR VOLUME 94.5 fl (80.0-96.0); MONO # 0.4 K/mm3 (0.0-0.8); NEUTROPHILS # 4.7 K/mm3 (1.8-7.7); NEUTROPHILS % 68.9 % (36.0-66.0); PLATELET COUNT, AUTOMATED 435 k/mm3 (150-450); RED CELL DISTRIBUTION WIDTH 15.5 % (11.5-14.5); WHITE BLOOD COUNT 6.9 K/mm3 (4.0-10.0)
[2016-12-25 06:44] LABS: ALBUMIN 1.3 GM/DL (3.2-5.2); ALBUMIN/GLOBULIN RATIO 0.39 (1.00-1.93); ALKALINE PHOSPHATASE 454 U/L (45-117); ALT/SGPT 31 U/L (12-78); ANION GAP 7 MEQ/L (8-16); AST/SGOT 39 U/L (15-37); BILIRUBIN,TOTAL 0.2 MG/DL (0.2-1.0); BLOOD UREA NITROGEN 14 MG/DL (7-18); CALCIUM LEVEL 7.7 MG/DL (8.5-10.1); CARBON DIOXIDE LEVEL 29 MEQ/L (21-32); CHLORIDE LEVEL 108 MEQ/L (98-107); CREATININE FOR GFR 0.92 MG/DL (0.70-1.30); GLOMERULAR FILTRATION RATE > 60.0 (>56); GLUCOSE, FASTING 73 MG/DL (70-105); SODIUM LEVEL 144 MEQ/L (136-145); TOTAL PROTEIN 4.6 GM/DL (6.4-8.2)
--- NOTE | 2016-12-25 08:33 | IPNPDOC ---
Subjective Date Seen The patient was seen on 12/25/16. Subjective Chief Complaint/HPI The patient is a 56-year-old male admitted with a reason for visit of Dehydration. Events since last encounter had 1 bout of loose stool/diarrhea this am. Mild fluid in BLE. Wearing compression stockings. OOB in room, ambulating. Constitutional: Denies: Chills, Fever, Night Sweats ENT: Denies: Head Aches, Ear Pain, Dysphagia Pulmonary: Denies: Dyspnea, Cough Cardiovascular: Denies: Chest Pain, Palpitations, Orthopnea, Paroxysmal Noc. Dyspnea, Lt Headedness Gastrointestinal: Reports: Diarrhea, Denies: Nausea, Vomiting, Abdominal Pain, Constipation Objective Physical Examination General Exam: Positive: No Acute Distress Eye Exam: Positive: Conjunctiva & lids normal ENT Exam: Positive: Mucous membr. moist/pink Neck Exam: Negative: Lymphadenopathy Chest Exam: Positive: Clear to auscultation, Normal air movement Heart Exam: Positive: Rate Normal, Normal S1, Normal S2 Abdomen Exam: Positive: Normal bowel sounds, Soft, Negative: Tenderness Extremity Exam: Positive: Edema (+2 BLE) Skin Exam: Positive: Other skin issue (mild erythematous inflamed rash to left wrist and right forearm. ) Psych Exam: Positive: Mood NL, Oriented x 3 Assessment /Plan Problems (1) C. difficile colitis Status: Acute Problem Specific Plan: Monitor Clinically, Repeat Labs Problem Text: D5/14 vanco 250 QID 12/25/16: Afebrile. ABC stable. 12/24 afebrile, WBC 8.4, stools more formed 12/18 - C Diff positive. Started on PO Vanco. (2) Dehydration Status: Resolved Problem Specific Plan: Monitor Clinically, Repeat Labs Problem Text: 12/24/16: 12/23/16: Tolerating po well. DC IVF> re-eval in am. We continue to focus on improving his protein intake in order to improve his oncotic pressure. (3) Amyloidosis Status: Chronic Problem Specific Plan: Monitor Clinically Problem Text: 12/25/16: skin lesions started on Right forearm. 12/24/16: Resumed midodrine due to hypovolemia and hypotension. 12/23/16: On midodrine due to chronic hypotension with Amyloidosis. Currently on HOLD due to hypertension in 170s systolic. He has several organ systems that are involved with the amyloidosis. Follows with Onc as outpt. 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 Nutrition recommended ensure original 3 times a day in between meals. (5) Metabolic encephalopathy Status: Resolved Problem Specific Plan: Monitor Clinically Problem Text: resolved (6) Orthostatic hypotension Status: Chronic Response to Treatment: Stable Problem Text: Stable on HD midodrine 2.5 TID-decrease to 1.25 TID if SBP >160, DBP>95 Plan/VTE VTE Prophylaxis Ordered?: Yes Plan IVF: Continue Diet: Supplement Family Medicine Attending Note: I saw and examined Mr. Ortega this morning; I discussed his care with PHILLIP Jacobsen and I agree with her note as documented. Patient has chronic edema due to nephrotic syndrome due to amyloidosis; however he thinks that swelling is worse than baseline. This may be due to the fact that he received IVF for dehydration earlier in this hospitalization. Since IVF were stopped, he has been net negative (yesterday - 1.8L). He feels that his edema is slowly improving but he does not feel well enough to go home. Continue vancomycin and monitor edema, which will likely continue to improve. (KES) VS, I&O, 24H, Fishbone Vital Signs/I&O Vital Signs Date Time Temp Pulse Resp B/P (MAP) Pulse Ox O2 Delivery O2 Flow Rate FiO2 12/25/16 06:34 16 Room Air 12/25/16 06:00 99.2 90 112/70 (84) 95 I&O- Last 24 Hours up to 6 AM 12/25/16 05:59 Intake Total 240 ml Output Total 1850 ml Balance -1610 ml Laboratory Data 24H LABS Laboratory Tests 2 12/25/16 06:13: White Blood Count 6.9, Red Blood Count 3.70L, Hemoglobin 11.6L, Hematocrit 35.0L , Mean Corpuscular Volume 94.5, Mean Corpuscular Hemoglobin 31.3, Mean Corpuscular Hemoglobin Concent 33.1, Red Cell Distribution Width 15.5H, Platelet Count 435, Neutrophils (%) (Auto) 68.9H, Lymphocytes (%) (Auto) 21.9L, Monocytes (%) (Auto) 6.0H, Eosinophils (%) (Auto) 1.8, Basophils (%) (Auto) 0.3 , Neutrophils # (Auto) 4.7, Lymphocytes # (Auto) 1.6, Monocytes # (Auto) 0.4, Eosinophils # (Auto) 0.1, Basophils # (Auto) 0.0, Large Unclassified Cells % 1.1 , Large Unclassified Cells # 0.1, Anion Gap 7L, Glomerular Filtration Rate > 60.0, Blood Urea Nitrogen 14, Creatinine 0.92, Sodium Level 144, Potassium Level 4.0, Chloride Level 108H, Carbon Dioxide Level 29, Calcium Level 7.7L, Aspartate Amino Transf (AST/SGOT) 39H, Alanine Aminotransferase (ALT/SGPT) 31, Alkaline Phosphatase 454H, Total Bilirubin 0.2, Total Protein 4.6L, Albumin 1.3L , Albumin/Globulin Ratio 0.39L CBC/BMP Laboratory Tests 12/25/16 06:13 Red Blood Count 3.70 L, Mean Corpuscular Volume 94.5, Mean Corpuscular Hemoglobin 31.3, Mean Corpuscular Hemoglobin Concent 33.1, Red Cell Distribution Width 15.5 H, Neutrophils (%) (Auto) 68.9 H, Lymphocytes (%) (Auto ) 21.9 L, Monocytes (%) (Auto) 6.0 H, Eosinophils (%) (Auto) 1.8, Basophils (%) (Auto) 0.3, Neutrophils # (Auto) 4.7, Lymphocytes # (Auto) 1.6, Monocytes # ( Auto) 0.4, Eosinophils # (Auto) 0.1, Basophils # (Auto) 0.0, Calcium Level 7.7 L , Aspartate Amino Transf (AST/SGOT) 39 H, Alanine Aminotransferase (ALT/SGPT) 31 , Alkaline Phosphatase 454 H, Total Bilirubin 0.2, Total Protein 4.6 L, Albumin 1.3 L Microbiology Microbiology 12/17/16 Gastrointestinal Tract Panel (PCR) - Final, Complete Clostridium Difficile A/B Hallie Carl Dec 25, 2016 08:33 NIKKI RODRIGUEZ MD Dec 25, 2016 10:55
[2016-12-25] MEDS: MIDODRINE 2.5 MG TAB PO SCH ×6 (09:21→15:38)
[2016-12-25] MEDS: MEGESTROL 40 MG TAB PO SCH ×2 (09:22→21:00)
[2016-12-25] MEDS: MORPHINE 15 MG SA TAB PO SCH ×2 (09:23→21:06)
[2016-12-25 10:00] VITALS: BP 119/79
[2016-12-25] MEDS: DRONABINOL 2.5 MG CAP (MARINOL) PO SCH ×2 (12:51→17:55)
[2016-12-25 14:00] VITALS: BP 134/93
[2016-12-25 18:00] VITALS: BP 158/101
[2016-12-25] MEDS: MIRTAZAPINE 15 MG TAB PO SCH (21:05)
[2016-12-25 22:00] VITALS: BP 148/90
[2016-12-26 05:54] LABS: BASO % 0.6 % (0.0-1.0); EOS # 0.1 K/mm3 (0.0-0.50); EOS % 1.3 % (0.0-3.0); LARGE UNSTAINED CELL # 0.1 K/mm3 (0.0-0.4); LARGE UNSTAINED CELL % 1.1 % (0.0-4.0); LYMPH # 1.1 K/mm3 (1.5-4.5); LYMPH % 13.7 % (24.0-44.0); MEAN CORPUSCULAR HEMOGLOBIN 30.9 pg (27.0-33.0); MEAN CORPUSCULAR HGB CONC 32.4 g/dl (32.0-36.5); MEAN CORPUSCULAR VOLUME 95.2 fl (80.0-96.0); MONO # 0.5 K/mm3 (0.0-0.8); MONO % 6.4 % (0.0-5.0); NEUTROPHILS % 76.9 % (36.0-66.0); PLATELET COUNT, AUTOMATED 429 k/mm3 (150-450); RED CELL DISTRIBUTION WIDTH 15.6 % (11.5-14.5); WHITE BLOOD COUNT 7.8 K/mm3 (4.0-10.0)
[2016-12-26] MEDS: VANCOMYCIN ORAL SOL 250MG/5ML ORAL SYRINGE PO SCH ×4 (05:58→23:00)
[2016-12-26] MEDS: LEVOTHYROXINE 125MCG TABLET (0.125MG) PO SCH (05:58)
[2016-12-26 06:00] VITALS: BP 168/98
[2016-12-26] MEDS: oxyCODONE 5MG TAB PO PRN ×3 (06:05→18:18)
[2016-12-26 06:11] LABS: ALBUMIN 1.2 GM/DL (3.2-5.2); ALKALINE PHOSPHATASE 426 U/L (45-117); ALT/SGPT 30 U/L (12-78); ANION GAP 7 MEQ/L (8-16); AST/SGOT 33 U/L (15-37); BILIRUBIN,TOTAL 0.2 MG/DL (0.2-1.0); BLOOD UREA NITROGEN 15 MG/DL (7-18); CALCIUM LEVEL 7.6 MG/DL (8.5-10.1); CARBON DIOXIDE LEVEL 30 MEQ/L (21-32); CHLORIDE LEVEL 108 MEQ/L (98-107); CREATININE FOR GFR 0.83 MG/DL (0.70-1.30); GLOMERULAR FILTRATION RATE > 60.0 (>56); GLUCOSE, FASTING 75 MG/DL (70-105); POTASSIUM SERUM 3.9 MEQ/L (3.5-5.1); SODIUM LEVEL 145 MEQ/L (136-145); TOTAL PROTEIN 4.2 GM/DL (6.4-8.2)
[2016-12-26] MEDS: MIDODRINE 2.5 MG TAB PO SCH ×6 (07:54→16:09)
--- NOTE | 2016-12-26 07:55 | IPNPDOC ---
Subjective Date Seen The patient was seen on 12/26/16. Subjective Chief Complaint/HPI The patient is a 56-year-old male admitted with a reason for visit of Dehydration. Events since last encounter Continues with loose stools. c/o fatigue. Objective Physical Examination General Exam: Positive: No Acute Distress Eye Exam: Positive: Conjunctiva & lids normal ENT Exam: Positive: Mucous membr. moist/pink Neck Exam: Negative: Lymphadenopathy Chest Exam: Positive: Clear to auscultation, Normal air movement Heart Exam: Positive: Rate Normal, Normal S1, Normal S2 Abdomen Exam: Positive: Normal bowel sounds, Soft, Negative: Tenderness Extremity Exam: Positive: Edema (+2 BLE) Skin Exam: Positive: Other skin issue (mild erythematous inflamed rash to left wrist and right forearm. ) Psych Exam: Positive: Mood NL, Oriented x 3 Assessment /Plan Problems (1) C. difficile colitis Status: Acute Problem Specific Plan: Monitor Clinically, Repeat Labs Problem Text: D5/14 vanco 250 QID 12/25/16: Afebrile. ABC stable. JFW: added probiotic and cholestyramine, pharmacy to time dosing to prevent interfering with Vanco 12/24 afebrile, WBC 8.4, stools more formed 12/18 - C Diff positive. Started on PO Vanco. (2) Dehydration Status: Resolved Problem Specific Plan: Monitor Clinically, Repeat Labs Problem Text: 12/24/16: 12/23/16: Tolerating po well. DC IVF> re-eval in am. We continue to focus on improving his protein intake in order to improve his oncotic pressure. (3) Amyloidosis Status: Chronic Problem Specific Plan: Monitor Clinically Problem Text: 12/25/16: skin lesions started on Right forearm. 12/24/16: Resumed midodrine due to hypovolemia and hypotension. 12/23/16: On midodrine due to chronic hypotension with Amyloidosis. Currently on HOLD due to hypertension in 170s systolic. He has several organ systems that are involved with the amyloidosis. Follows with Onc as outpt. 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 Nutrition recommended ensure original 3 times a day in between meals. (5) Metabolic encephalopathy Status: Resolved Problem Specific Plan: Monitor Clinically Problem Text: resolved (6) Orthostatic hypotension Status: Chronic Response to Treatment: Stable Problem Text: c supine hypertension-keep HOB at least 40 degree Stable on HD midodrine 2.5 TID-decrease to 1.25 TID if SBP >160, DBP>95 Plan/VTE VTE Prophylaxis Ordered?: Yes Plan IVF: Continue Diet: Supplement VS, I&O, 24H, Fishbone Vital Signs/I&O Vital Signs Date Time Temp Pulse Resp B/P (MAP) Pulse Ox O2 Delivery O2 Flow Rate FiO2 12/26/16 06:35 16 Room Air 12/26/16 06:00 97.0 100 168/98 (121) 96 I&O- Last 24 Hours up to 6 AM 12/26/16 06:00 Intake Total 2000 ml Output Total 2525 ml Balance -525 ml Laboratory Data 24H LABS Laboratory Tests 2 12/26/16 05:37: White Blood Count 7.8, Red Blood Count 3.46L, Hemoglobin 10.7L, Hematocrit 32.9L , Mean Corpuscular Volume 95.2, Mean Corpuscular Hemoglobin 30.9, Mean Corpuscular Hemoglobin Concent 32.4, Red Cell Distribution Width 15.6H, Platelet Count 429, Neutrophils (%) (Auto) 76.9H, Lymphocytes (%) (Auto) 13.7L, Monocytes (%) (Auto) 6.4H, Eosinophils (%) (Auto) 1.3, Basophils (%) (Auto) 0.6 , Neutrophils # (Auto) 6.0, Lymphocytes # (Auto) 1.1L, Monocytes # (Auto) 0.5, Eosinophils # (Auto) 0.1, Basophils # (Auto) 0.0, Large Unclassified Cells % 1.1 , Large Unclassified Cells # 0.1, Anion Gap 7L, Glomerular Filtration Rate > 60.0, Blood Urea Nitrogen 15, Creatinine 0.83, Sodium Level 145, Potassium Level 3.9, Chloride Level 108H, Carbon Dioxide Level 30, Calcium Level 7.6L, Aspartate Amino Transf (AST/SGOT) 33, Alanine Aminotransferase (ALT/SGPT) 30, Alkaline Phosphatase 426H, Total Bilirubin 0.2, Total Protein 4.2L, Albumin 1.2L , Albumin/Globulin Ratio 0.40L CBC/BMP Laboratory Tests 12/26/16 05:37 Red Blood Count 3.46 L, Mean Corpuscular Volume 95.2, Mean Corpuscular Hemoglobin 30.9, Mean Corpuscular Hemoglobin Concent 32.4, Red Cell Distribution Width 15.6 H, Neutrophils (%) (Auto) 76.9 H, Lymphocytes (%) (Auto ) 13.7 L, Monocytes (%) (Auto) 6.4 H, Eosinophils (%) (Auto) 1.3, Basophils (%) (Auto) 0.6, Neutrophils # (Auto) 6.0, Lymphocytes # (Auto) 1.1 L, Monocytes # ( Auto) 0.5, Eosinophils # (Auto) 0.1, Basophils # (Auto) 0.0, Calcium Level 7.6 L , Aspartate Amino Transf (AST/SGOT) 33, Alanine Aminotransferase (ALT/SGPT) 30, Alkaline Phosphatase 426 H, Total Bilirubin 0.2, Total Protein 4.2 L, Albumin 1.2 L Microbiology Microbiology 12/17/16 Gastrointestinal Tract Panel (PCR) - Final, Complete Clostridium Difficile A/B Hallie Carl Dec 26, 2016 07:55 Keon Triplett MD Dec 26, 2016 12:47 Nakul Duffy M.D. Dec 26, 2016 16:55
[2016-12-26] MEDS: MORPHINE 15 MG SA TAB PO SCH ×2 (09:12→20:50)
[2016-12-26] MEDS: MEGESTROL 40 MG TAB PO SCH ×2 (09:13→20:50)
[2016-12-26 10:00] VITALS: BP 124/80
[2016-12-26] MEDS: DRONABINOL 2.5 MG CAP (MARINOL) PO SCH ×2 (11:49→17:45)
[2016-12-26] MEDS: CHOLESTYRAMINE 4 GM PWD PKT PO SCH ×2 (13:08→20:50)
[2016-12-26] MEDS: LACTOBACILLUS ACIDOPHILUS CAP (BACID) PO SCH ×2 (13:08→17:45)
[2016-12-26 14:00] VITALS: BP 142/96
[2016-12-26 18:00] VITALS: BP 156/86
[2016-12-26] MEDS: MIRTAZAPINE 15 MG TAB PO SCH (20:50)
[2016-12-26 22:00] VITALS: BP 150/92
[2016-12-27] VITALS (8 sets, daily range): BP systolic 103–160; BP diastolic 72–116
[2016-12-27] MEDS: oxyCODONE 5MG TAB PO PRN ×3 (01:41→17:50)
[2016-12-27] MEDS: VANCOMYCIN ORAL SOL 250MG/5ML ORAL SYRINGE PO SCH ×3 (05:50→17:51)
[2016-12-27] MEDS: LEVOTHYROXINE 125MCG TABLET (0.125MG) PO SCH (05:50)
[2016-12-27 07:06] LABS: BASO % 0.4 % (0.0-1.0); EOS # 0.1 K/mm3 (0.0-0.50); EOS % 1.2 % (0.0-3.0); LARGE UNSTAINED CELL # 0.1 K/mm3 (0.0-0.4); LARGE UNSTAINED CELL % 1.5 % (0.0-4.0); LYMPH # 1.2 K/mm3 (1.5-4.5); LYMPH % 17.1 % (24.0-44.0); MEAN CORPUSCULAR HEMOGLOBIN 31.4 pg (27.0-33.0); MEAN CORPUSCULAR HGB CONC 33.1 g/dl (32.0-36.5); MEAN CORPUSCULAR VOLUME 94.9 fl (80.0-96.0); MONO # 0.4 K/mm3 (0.0-0.8); MONO % 4.9 % (0.0-5.0); NEUTROPHILS # 5.4 K/mm3 (1.8-7.7); PLATELET COUNT, AUTOMATED 481 k/mm3 (150-450); RED CELL DISTRIBUTION WIDTH 15.2 % (11.5-14.5); WHITE BLOOD COUNT 7.2 K/mm3 (4.0-10.0)
[2016-12-27 07:25] LABS: ALBUMIN 1.2 GM/DL (3.2-5.2); ALBUMIN/GLOBULIN RATIO 0.34 (1.00-1.93); ALKALINE PHOSPHATASE 469 U/L (45-117); ALT/SGPT 30 U/L (12-78); ANION GAP 9 MEQ/L (8-16); AST/SGOT 30 U/L (15-37); BILIRUBIN,TOTAL 0.2 MG/DL (0.2-1.0); BLOOD UREA NITROGEN 14 MG/DL (7-18); CALCIUM LEVEL 7.7 MG/DL (8.5-10.1); CARBON DIOXIDE LEVEL 28 MEQ/L (21-32); CHLORIDE LEVEL 104 MEQ/L (98-107); CREATININE FOR GFR 0.79 MG/DL (0.70-1.30); GLOMERULAR FILTRATION RATE > 60.0 (>56); GLUCOSE, FASTING 67 MG/DL (70-105); POTASSIUM SERUM 3.4 MEQ/L (3.5-5.1); SODIUM LEVEL 141 MEQ/L (136-145); TOTAL PROTEIN 4.7 GM/DL (6.4-8.2)
[2016-12-27] MEDS: MIDODRINE 2.5 MG TAB PO SCH ×5 (08:00→16:00)
[2016-12-27] MEDS: CHOLESTYRAMINE 4 GM PWD PKT PO SCH ×2 (08:50→21:53)
[2016-12-27] MEDS: LACTOBACILLUS ACIDOPHILUS CAP (BACID) PO SCH ×3 (08:52→17:46)
[2016-12-27] MEDS: MORPHINE 15 MG SA TAB PO SCH ×2 (08:52→21:55)
[2016-12-27] MEDS: MEGESTROL 40 MG TAB PO SCH ×2 (08:53→21:56)
[2016-12-27] MEDS ORDERED: POTASSIUM CHLORIDE 10 MEQ SR TABLET PO ONE (09:30)
--- NOTE | 2016-12-27 09:30 | IPNPDOC ---
Subjective Date Seen The patient was seen on 12/27/16. Subjective Chief Complaint/HPI The patient is a 56-year-old male admitted with a reason for visit of Dehydration. Events since last encounter c/o feeling weak and tired today. States abdomen is softening and non-tender. BLE edema slowly improving. Constitutional: Reports: Weakness, Fatigue, Lethargy, Denies: Chills, Fever, Night Sweats Pulmonary: Denies: Dyspnea, Cough Cardiovascular: Denies: Chest Pain, Palpitations, Orthopnea, Paroxysmal Noc. Dyspnea, Lt Headedness Gastrointestinal: Reports: Nausea (mild), Denies: Vomiting, Abdominal Pain, Diarrhea, Constipation Objective Physical Examination General Exam: Positive: No Acute Distress Eye Exam: Positive: Conjunctiva & lids normal ENT Exam: Positive: Mucous membr. moist/pink Neck Exam: Negative: Lymphadenopathy Chest Exam: Positive: Clear to auscultation, Normal air movement Heart Exam: Positive: Rate Normal, Normal S1, Normal S2 Abdomen Exam: Positive: Normal bowel sounds, Soft, Negative: Tenderness Extremity Exam: Positive: Edema (+1-2 BLE, boggy, improving) Skin Exam: Positive: Other skin issue (mild erythematous inflamed rash to left wrist and right forearm. ) Psych Exam: Positive: Mood NL, Oriented x 3 Assessment /Plan Problems (1) C. difficile colitis Status: Acute Problem Specific Plan: Monitor Clinically, Repeat Labs Problem Text: vanco 250 QID 12/25/16: Afebrile. ABC stable. JFW: added probiotic and cholestyramine, pharmacy to time dosing to prevent interfering with Vanco 12/24 afebrile, WBC 8.4, stools more formed 12/18 - C Diff positive. Started on PO Vanco. (2) Dehydration Status: Resolved Problem Specific Plan: Monitor Clinically, Repeat Labs Problem Text: 12/24/16: 12/23/16: Tolerating po well. DC IVF> re-eval in am. We continue to focus on improving his protein intake in order to improve his oncotic pressure. (3) Amyloidosis Status: Chronic Problem Specific Plan: Monitor Clinically Problem Text: 12/25/16: skin lesions started on Right forearm. 12/24/16: Resumed midodrine due to hypovolemia and hypotension. 12/23/16: On midodrine due to chronic hypotension with Amyloidosis. Currently on HOLD due to hypertension in 170s systolic. He has several organ systems that are involved with the amyloidosis. Follows with Onc as outpt. 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 Nutrition recommended ensure original 3 times a day in between meals. (5) Metabolic encephalopathy Status: Resolved Problem Specific Plan: Monitor Clinically Problem Text: resolved (6) Orthostatic hypotension Status: Chronic Response to Treatment: Stable Problem Text: c supine hypertension-keep HOB at least 40 degree Stable on HD midodrine 2.5 TID-decrease to 1.25 TID if SBP >160, DBP>95 Plan/VTE VTE Prophylaxis Ordered?: Yes Plan IVF: Continue Diet: Supplement VS, I&O, 24H, Fishbone Vital Signs/I&O Vital Signs Date Time Temp Pulse Resp B/P (MAP) Pulse Ox O2 Delivery O2 Flow Rate FiO2 12/27/16 08:57 102 103/72 (82) 12/27/16 08:52 18 12/27/16 06:00 97.5 96 12/27/16 02:11 Room Air I&O- Last 24 Hours up to 6 AM 12/27/16 05:59 Intake Total 1800 ml Output Total 1550 ml Balance 250 ml Laboratory Data 24H LABS Laboratory Tests 2 12/27/16 06:44: White Blood Count 7.2, Red Blood Count 3.68L, Hemoglobin 11.6L, Hematocrit 34.9L , Mean Corpuscular Volume 94.9, Mean Corpuscular Hemoglobin 31.4, Mean Corpuscular Hemoglobin Concent 33.1, Red Cell Distribution Width 15.2H, Platelet Count 481H, Neutrophils (%) (Auto) 75.0H, Lymphocytes (%) (Auto) 17.1L , Monocytes (%) (Auto) 4.9, Eosinophils (%) (Auto) 1.2, Basophils (%) (Auto) 0.4 , Neutrophils # (Auto) 5.4, Lymphocytes # (Auto) 1.2L, Monocytes # (Auto) 0.4, Eosinophils # (Auto) 0.1, Basophils # (Auto) 0.0, Large Unclassified Cells % 1.5 , Large Unclassified Cells # 0.1, Anion Gap 9, Glomerular Filtration Rate > 60.0 , Blood Urea Nitrogen 14, Creatinine 0.79, Sodium Level 141, Potassium Level 3.4L, Chloride Level 104, Carbon Dioxide Level 28, Calcium Level 7.7L, Aspartate Amino Transf (AST/SGOT) 30, Alanine Aminotransferase (ALT/SGPT) 30, Alkaline Phosphatase 469H, Total Bilirubin 0.2, Total Protein 4.7L, Albumin 1.2L , Albumin/Globulin Ratio 0.34L CBC/BMP Laboratory Tests 12/27/16 06:44 Red Blood Count 3.68 L, Mean Corpuscular Volume 94.9, Mean Corpuscular Hemoglobin 31.4, Mean Corpuscular Hemoglobin Concent 33.1, Red Cell Distribution Width 15.2 H, Neutrophils (%) (Auto) 75.0 H, Lymphocytes (%) (Auto ) 17.1 L, Monocytes (%) (Auto) 4.9, Eosinophils (%) (Auto) 1.2, Basophils (%) ( Auto) 0.4, Neutrophils # (Auto) 5.4, Lymphocytes # (Auto) 1.2 L, Monocytes # ( Auto) 0.4, Eosinophils # (Auto) 0.1, Basophils # (Auto) 0.0, Calcium Level 7.7 L , Aspartate Amino Transf (AST/SGOT) 30, Alanine Aminotransferase (ALT/SGPT) 30, Alkaline Phosphatase 469 H, Total Bilirubin 0.2, Total Protein 4.7 L, Albumin 1.2 L Microbiology Microbiology 12/17/16 Gastrointestinal Tract Panel (PCR) - Final, Complete Clostridium Difficile A/B Hallie Carl Dec 27, 2016 09:30
[2016-12-27] MEDS: ONDANSETRON 4 MG TAB (S0181) PO PRN (10:51)
[2016-12-27] MEDS: DRONABINOL 2.5 MG CAP (MARINOL) PO SCH ×2 (13:08→17:46)
[2016-12-27] MEDS ORDERED: MIDODRINE 2.5 MG TAB PO PRN (16:00)
[2016-12-27] MEDS: LOTRISONE CREAM 15 GM (BETAMETH/CLOTRIMAZOLE) TOP SCH (21:51)
[2016-12-27] MEDS: MIRTAZAPINE 15 MG TAB PO SCH (21:56)
[2016-12-28] MEDS: VANCOMYCIN ORAL SOL 250MG/5ML ORAL SYRINGE PO SCH ×4 (00:14→17:20)
[2016-12-28] MEDS: oxyCODONE 5MG TAB PO PRN ×4 (00:16→19:04)
[2016-12-28 02:00] VITALS: BP 114/90
[2016-12-28] MEDS: LEVOTHYROXINE 125MCG TABLET (0.125MG) PO SCH (05:41)
[2016-12-28 06:00] VITALS: BP 138/90
[2016-12-28 06:56] LABS: BASO % 0.4 % (0.0-1.0); EOS # 0.1 K/mm3 (0.0-0.50); LARGE UNSTAINED CELL # 0.1 K/mm3 (0.0-0.4); LARGE UNSTAINED CELL % 1.7 % (0.0-4.0); LYMPH # 1.1 K/mm3 (1.5-4.5); LYMPH % 15.9 % (24.0-44.0); MEAN CORPUSCULAR HEMOGLOBIN 31.1 pg (27.0-33.0); MEAN CORPUSCULAR HGB CONC 32.8 g/dl (32.0-36.5); MEAN CORPUSCULAR VOLUME 94.6 fl (80.0-96.0); MONO # 0.3 K/mm3 (0.0-0.8); MONO % 4.9 % (0.0-5.0); PLATELET COUNT, AUTOMATED 450 k/mm3 (150-450); RED CELL DISTRIBUTION WIDTH 15.3 % (11.5-14.5); WHITE BLOOD COUNT 6.6 K/mm3 (4.0-10.0)
[2016-12-28 07:17] LABS: ALBUMIN 1.2 GM/DL (3.2-5.2); ALBUMIN/GLOBULIN RATIO 0.39 (1.00-1.93); ALKALINE PHOSPHATASE 385 U/L (45-117); ALT/SGPT 25 U/L (12-78); ANION GAP 7 MEQ/L (8-16); AST/SGOT 23 U/L (15-37); BILIRUBIN,TOTAL 0.2 MG/DL (0.2-1.0); BLOOD UREA NITROGEN 13 MG/DL (7-18); CALCIUM LEVEL 7.8 MG/DL (8.5-10.1); CARBON DIOXIDE LEVEL 28 MEQ/L (21-32); CHLORIDE LEVEL 106 MEQ/L (98-107); CREATININE FOR GFR 0.82 MG/DL (0.70-1.30); GLOMERULAR FILTRATION RATE > 60.0 (>56); GLUCOSE, FASTING 67 MG/DL (70-105); MAGNESIUM LEVEL 1.7 MG/DL (1.8-2.4); SODIUM LEVEL 141 MEQ/L (136-145); TOTAL PROTEIN 4.3 GM/DL (6.4-8.2)
[2016-12-28] MEDS: MEGESTROL 40 MG TAB PO SCH ×2 (09:00→20:21)
[2016-12-28] MEDS: LACTOBACILLUS ACIDOPHILUS CAP (BACID) PO SCH ×3 (09:27→17:20)
[2016-12-28] MEDS: CHOLESTYRAMINE 4 GM PWD PKT PO SCH ×2 (09:28→20:20)
[2016-12-28] MEDS: MORPHINE 15 MG SA TAB PO SCH ×2 (09:28→20:23)
[2016-12-28] MEDS: MIDODRINE 2.5 MG TAB PO SCH ×3 (09:28→16:25)
[2016-12-28] MEDS: LOTRISONE CREAM 15 GM (BETAMETH/CLOTRIMAZOLE) TOP SCH ×2 (09:29→20:24)
[2016-12-28 10:00] VITALS: BP 130/70
[2016-12-28] MEDS: DRONABINOL 2.5 MG CAP (MARINOL) PO SCH ×2 (12:29→17:20)
[2016-12-28 14:00] VITALS: BP 140/80
--- NOTE | 2016-12-28 15:56 | IPNPDOC ---
Subjective Date Seen The patient was seen on 12/28/16. Subjective Chief Complaint/HPI The patient is a 56-year-old male admitted with a reason for visit of Dehydration. Constitutional: Denies: Chills Eyes: Denies: Pain ENT: Denies: Head Aches Pulmonary: Denies: Dyspnea, Cough Cardiovascular: Denies: Chest Pain Gastrointestinal: Denies: Nausea, Vomiting Objective Physical Examination General Exam: Positive: No Acute Distress Eye Exam: Positive: Conjunctiva & lids normal ENT Exam: Positive: Mucous membr. moist/pink Neck Exam: Negative: Lymphadenopathy Chest Exam: Positive: Clear to auscultation, Normal air movement Heart Exam: Positive: Rate Normal, Normal S1, Normal S2 Abdomen Exam: Positive: Normal bowel sounds, Soft, Negative: Tenderness Extremity Exam: Positive: Edema (+1-2 BLE, boggy, improving) Skin Exam: Positive: Other skin issue (mild erythematous inflamed rash to left wrist and right forearm. ) Psych Exam: Positive: Mood NL, Oriented x 3 Assessment /Plan Problems (1) C. difficile colitis Status: Acute Problem Specific Plan: Monitor Clinically, Repeat Labs Problem Text: D8/14 vanco 250 PO QID 12/28 afebrile, WBC stable at 6.6 . added probiotic and cholestyramine, pharmacy to time dosing to prevent interfering with Vanco 12/18 - C Diff positive. Started on PO Vanco. (2) Amyloidosis Status: Chronic Problem Specific Plan: Monitor Clinically Problem Text: No obvious acutely active system several organ systems that are involved with the amyloidosis. Follows with Onc as outpt. 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 Nutrition recommended ensure original 3 times a day in between meals. (4) Orthostatic hypotension Status: Chronic Response to Treatment: Stable Problem Text: c supine hypertension-keep HOB at least 40 degree Stable on HD midodrine 2.5 TID-decrease to 1.25 TID if SBP >160, DBP>95 (5) Physical deconditioning Status: Acute Problem Text: 12/27 PT not safe-plan home c services Plan/VTE VTE Prophylaxis Ordered?: Yes Plan IVF: Continue Diet: Supplement VS, I&O, 24H, Fishbone Vital Signs/I&O Vital Signs Date Time Temp Pulse Resp B/P (MAP) Pulse Ox O2 Delivery O2 Flow Rate FiO2 12/28/16 14:00 98.5 95 18 140/80 (100) 93 Room Air I&O- Last 24 Hours up to 6 AM 12/28/16 06:00 Intake Total 2300 ml Output Total 1000 ml Balance 1300 ml Laboratory Data 24H LABS Laboratory Tests 2 12/28/16 06:30: White Blood Count 6.6, Red Blood Count 3.38L, Hemoglobin 10.5L, Hematocrit 32.0L , Mean Corpuscular Volume 94.6, Mean Corpuscular Hemoglobin 31.1, Mean Corpuscular Hemoglobin Concent 32.8, Red Cell Distribution Width 15.3H, Platelet Count 450, Neutrophils (%) (Auto) 76.0H, Lymphocytes (%) (Auto) 15.9L, Monocytes (%) (Auto) 4.9, Eosinophils (%) (Auto) 1.0, Basophils (%) (Auto) 0.4, Neutrophils # (Auto) 5.0, Lymphocytes # (Auto) 1.1L, Monocytes # (Auto) 0.3, Eosinophils # (Auto) 0.1, Basophils # (Auto) 0.0, Large Unclassified Cells % 1.7 , Large Unclassified Cells # 0.1, Anion Gap 7L, Glomerular Filtration Rate > 60.0, Blood Urea Nitrogen 13, Creatinine 0.82, Sodium Level 141, Potassium Level 4.0, Chloride Level 106, Carbon Dioxide Level 28, Calcium Level 7.8L, Aspartate Amino Transf (AST/SGOT) 23, Alanine Aminotransferase (ALT/SGPT) 25, Alkaline Phosphatase 385H, Total Bilirubin 0.2, Total Protein 4.3L, Albumin 1.2L , Magnesium Level 1.7L, Albumin/Globulin Ratio 0.39L CBC/BMP Laboratory Tests 12/28/16 06:30 Red Blood Count 3.38 L, Mean Corpuscular Volume 94.6, Mean Corpuscular Hemoglobin 31.1, Mean Corpuscular Hemoglobin Concent 32.8, Red Cell Distribution Width 15.3 H, Neutrophils (%) (Auto) 76.0 H, Lymphocytes (%) (Auto ) 15.9 L, Monocytes (%) (Auto) 4.9, Eosinophils (%) (Auto) 1.0, Basophils (%) ( Auto) 0.4, Neutrophils # (Auto) 5.0, Lymphocytes # (Auto) 1.1 L, Monocytes # ( Auto) 0.3, Eosinophils # (Auto) 0.1, Basophils # (Auto) 0.0, Calcium Level 7.8 L , Aspartate Amino Transf (AST/SGOT) 23, Alanine Aminotransferase (ALT/SGPT) 25, Alkaline Phosphatase 385 H, Total Bilirubin 0.2, Total Protein 4.3 L, Albumin 1.2 L Nakul Duffy M.D. Dec 28, 2016 15:56
[2016-12-28 18:00] VITALS: BP 140/75
[2016-12-28] MEDS: MIRTAZAPINE 15 MG TAB PO SCH (20:21)
[2016-12-28 22:00] VITALS: BP 140/90
[2016-12-29] VITALS (7 sets, daily range): BP systolic 108–146; BP diastolic 68–102
[2016-12-29] MEDS: VANCOMYCIN ORAL SOL 250MG/5ML ORAL SYRINGE PO SCH ×5 (00:23→23:47)
[2016-12-29] MEDS: oxyCODONE 5MG TAB PO PRN ×4 (00:24→18:46)
[2016-12-29] MEDS: LEVOTHYROXINE 125MCG TABLET (0.125MG) PO SCH (06:21)
[2016-12-29] MEDS: CHOLESTYRAMINE 4 GM PWD PKT PO SCH ×2 (09:10→20:25)
[2016-12-29] MEDS: LACTOBACILLUS ACIDOPHILUS CAP (BACID) PO SCH ×3 (09:10→17:51)
[2016-12-29] MEDS: MEGESTROL 40 MG TAB PO SCH ×2 (09:11→20:25)
[2016-12-29] MEDS: MIDODRINE 2.5 MG TAB PO SCH ×3 (09:12→16:42)
[2016-12-29] MEDS: MORPHINE 15 MG SA TAB PO SCH ×2 (09:12→20:26)
[2016-12-29] MEDS: LOTRISONE CREAM 15 GM (BETAMETH/CLOTRIMAZOLE) TOP SCH ×2 (09:13→20:27)
[2016-12-29] MEDS: DRONABINOL 2.5 MG CAP (MARINOL) PO SCH ×2 (12:28→17:51)
--- NOTE | 2016-12-29 16:22 | IPNPDOC ---
Subjective Date Seen The patient was seen on 12/29/16. Subjective Chief Complaint/HPI The patient is a 56-year-old male admitted with a reason for visit of Dehydration. Constitutional: Denies: Chills ENT: Denies: Head Aches Pulmonary: Denies: Dyspnea, Cough Cardiovascular: Denies: Chest Pain, Palpitations Gastrointestinal: Denies: Nausea, Vomiting Genitourinary: Denies: Dysuria Objective Physical Examination General Exam: Positive: No Acute Distress Eye Exam: Positive: Conjunctiva & lids normal ENT Exam: Positive: Mucous membr. moist/pink Neck Exam: Negative: Lymphadenopathy Chest Exam: Positive: Clear to auscultation, Normal air movement Heart Exam: Positive: Rate Normal, Normal S1, Normal S2 Abdomen Exam: Positive: Normal bowel sounds, Soft Extremity Exam: Positive: Edema Skin Exam: Positive: Other skin issue (mild erythematous inflamed rash to left wrist and right forearm. ) Psych Exam: Positive: Mood NL, Oriented x 3 Assessment /Plan Problems (1) C. difficile colitis Status: Acute Problem Specific Plan: Monitor Clinically, Repeat Labs Problem Text: D12/26 vanco 250 PO QID 12/29 afebrile, WBC stable at 6.6-but by 1500, 4 liquid BMs-therefore, recheck C diff AB, increase vanco 250 QID to 500 QID on probiotic and cholestyramine 12/18 - C Diff positive. Started on PO Vanco. (2) Amyloidosis Status: Chronic Problem Specific Plan: Monitor Clinically Problem Text: No obvious acutely active system several organ systems that are involved with the amyloidosis. Follows with Onc as outpt. 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 Nutrition recommended ensure original 3 times a day in between meals. (4) Orthostatic hypotension Status: Chronic Response to Treatment: Stable Problem Text: c supine hypertension-keep HOB at least 40 degree Stable on HD midodrine 2.5 TID-decrease to 1.25 TID if SBP >160, DBP>95 (5) Physical deconditioning Status: Acute Problem Text: 12/27 PT not safe-plan home c services (6) Anemia, chronic disease Status: Chronic Problem Text: 12/29 stable hgb 10.5 (7) Perleche with candidiasis Status: Acute Problem Text: Improving on current regimen Encouraged not to lick lips 12/27 started Lotrisone BID perioral Plan/VTE VTE Prophylaxis Ordered?: Yes Plan IVF: Continue Diet: Supplement VS, I&O, 24H, Fishbone Vital Signs/I&O Vital Signs Date Time Temp Pulse Resp B/P (MAP) Pulse Ox O2 Delivery O2 Flow Rate FiO2 12/29/16 15:07 18 12/29/16 14:00 99.4 86 146/88 (107) 96 Room Air I&O- Last 24 Hours up to 6 AM 12/29/16 05:59 Intake Total 720 ml Output Total 1650 ml Balance -930 ml Nakul Duffy M.D. Dec 29, 2016 16:22
--- NOTE | 2016-12-29 16:38 | IPN ---
DATE: This note supplements Dr. Duffy's note from the day I have been seeing Alfredo formally as I followed him as an outpatient for several decades and as working through the end stage of his amyloidosis. Alfredo has an important family event coming up and is intent in trying to be discharged tomorrow. His colitis is a bit improved. Things seem to have slowed down some as far as the diarrhea with the addition of Questran and a probiotic. I do not think that retesting his Clostridium (C.) difficile status would necessarily be accurate as the Questran could bind the toxin, though I am not sure if the new polymerase chain reaction (PCR) test is toxin based or not. If possible, I would like to discharge Alfredo tomorrow. I will be in a around on him at noon and hopefully will know by earlier in the morning whether he is ready for discharge. Worst case scenario is he ends up getting readmitted, provided he is stable enough for discharge. His life expectancy is short, and him being able to attend whatever family event he has tomorrow is very important to him.
[2016-12-29 16:52] LABS: BASO % 0.3 % (0.0-1.0); EOS # 0.1 K/mm3 (0.0-0.50); EOS % 0.9 % (0.0-3.0); LARGE UNSTAINED CELL # 0.1 K/mm3 (0.0-0.4); LYMPH # 0.7 K/mm3 (1.5-4.5); LYMPH % 9.1 % (24.0-44.0); MEAN CORPUSCULAR HEMOGLOBIN 31.6 pg (27.0-33.0); MEAN CORPUSCULAR HGB CONC 33.7 g/dl (32.0-36.5); MEAN CORPUSCULAR VOLUME 93.7 fl (80.0-96.0); MONO # 0.3 K/mm3 (0.0-0.8); MONO % 4.2 % (0.0-5.0); NEUTROPHILS # 6.8 K/mm3 (1.8-7.7); NEUTROPHILS % 84.5 % (36.0-66.0); PLATELET COUNT, AUTOMATED 470 k/mm3 (150-450); RED CELL DISTRIBUTION WIDTH 15.2 % (11.5-14.5)
[2016-12-29] MEDS: MIRTAZAPINE 15 MG TAB PO SCH (20:25)
[2016-12-30] VITALS (7 sets, daily range): BP systolic 110–168; BP diastolic 78–108
[2016-12-30] MEDS: oxyCODONE 5MG TAB PO PRN ×3 (05:48→17:51)
[2016-12-30] MEDS: LEVOTHYROXINE 125MCG TABLET (0.125MG) PO SCH (05:48)
[2016-12-30] MEDS: VANCOMYCIN ORAL SOL 250MG/5ML ORAL SYRINGE PO SCH ×4 (05:48→23:24)
[2016-12-30 06:21] LABS: MEAN CORPUSCULAR HEMOGLOBIN 31.4 pg (27.0-33.0); MEAN CORPUSCULAR HGB CONC 33.4 g/dl (32.0-36.5); MEAN CORPUSCULAR VOLUME 94.2 fl (80.0-96.0); RED CELL DISTRIBUTION WIDTH 15.2 % (11.5-14.5); WHITE BLOOD COUNT 6.2 K/mm3 (4.0-10.0)
[2016-12-30 06:25] LABS: ALBUMIN 1.2 GM/DL (3.2-5.2); ALBUMIN/GLOBULIN RATIO 0.36 (1.00-1.93); ALKALINE PHOSPHATASE 370 U/L (45-117); ALT/SGPT 23 U/L (12-78); ANION GAP 5 MEQ/L (8-16); AST/SGOT 19 U/L (15-37); BILIRUBIN,TOTAL 0.3 MG/DL (0.2-1.0); BLOOD UREA NITROGEN 13 MG/DL (7-18); CALCIUM LEVEL 7.7 MG/DL (8.5-10.1); CARBON DIOXIDE LEVEL 30 MEQ/L (21-32); CHLORIDE LEVEL 105 MEQ/L (98-107); CREATININE FOR GFR 0.91 MG/DL (0.70-1.30); GLOMERULAR FILTRATION RATE > 60.0 (>56); GLUCOSE, FASTING 73 MG/DL (70-105); MAGNESIUM LEVEL 1.9 MG/DL (1.8-2.4); POTASSIUM SERUM 3.8 MEQ/L (3.5-5.1); SODIUM LEVEL 140 MEQ/L (136-145); TOTAL PROTEIN 4.5 GM/DL (6.4-8.2)
[2016-12-30 07:25] LABS: EOSINOPHILS 2 % (0-5)
[2016-12-30 07:26] LABS: ANISOCYTOSIS 1+; POIKILOCYTOSIS 1+
[2016-12-30] MEDS: CHOLESTYRAMINE 4 GM PWD PKT PO SCH ×2 (08:55→20:28)
[2016-12-30] MEDS: LACTOBACILLUS ACIDOPHILUS CAP (BACID) PO SCH ×3 (08:55→17:50)
[2016-12-30] MEDS: MEGESTROL 40 MG TAB PO SCH ×2 (08:56→20:27)
[2016-12-30] MEDS: MIDODRINE 2.5 MG TAB PO SCH ×3 (08:56→16:32)
[2016-12-30] MEDS: MORPHINE 15 MG SA TAB PO SCH ×2 (08:57→20:27)
[2016-12-30] MEDS: ONDANSETRON 4 MG TAB (S0181) PO PRN (08:58)
[2016-12-30] MEDS: LOTRISONE CREAM 15 GM (BETAMETH/CLOTRIMAZOLE) TOP SCH ×2 (08:59→20:29)
[2016-12-30] MEDS: DRONABINOL 2.5 MG CAP (MARINOL) PO SCH ×2 (12:00→17:50)
--- NOTE | 2016-12-30 12:10 | IPNPDOC ---
Subjective Date Seen The patient was seen on 12/30/16. Subjective Chief Complaint/HPI The patient is a 56-year-old male admitted with a reason for visit of Dehydration. Events since last encounter Pt this morning is feeling worse than yesterday. More upset stomach, nausea, mushy, very soft stool. Feels weak. at bedside. General: Denies: Fatigue Constitutional: Denies: Chills, Fever Pulmonary: Reports: Dyspnea, Denies: Cough Cardiovascular: Denies: Chest Pain, Palpitations Gastrointestinal: Reports: Nausea, Diarrhea, Denies: Vomiting Neurological: Reports: Weakness Psych: Reports: Mood Normal Objective Physical Examination General Exam: Positive: Alert, Cooperative, No Acute Distress Eye Exam: Positive: Conjunctiva & lids normal ENT Exam: Positive: Mucous membr. moist/pink Neck Exam: Negative: Lymphadenopathy Chest Exam: Positive: Clear to auscultation, Normal air movement Heart Exam: Positive: Rate Normal, Normal S1, Normal S2 Abdomen Exam: Positive: Normal bowel sounds, Soft, Negative: Tenderness Extremity Exam: Positive: Edema (2 mm pitting BLE edema) Skin Exam: Positive: Other skin issue (mild erythematous inflamed rash to left wrist and right forearm. ) Psych Exam: Positive: Mood NL, Oriented x 3 Assessment /Plan Problems (1) C. difficile colitis Status: Acute Problem Specific Plan: Monitor Clinically, Repeat Labs Problem Text: D10/14 vanco increased from 250 to 500 on 12/29 PO QID 12/30- Reports mushy stool today, C diff PCR ordered. 12/29 afebrile, WBC stable at 6.6-but by 1500, 4 liquid BMs-therefore, recheck C diff AB, increase vanco 250 QID to 500 QID on probiotic and cholestyramine 12/18 - C Diff positive. Started on PO Vanco. (2) Amyloidosis Status: Chronic Problem Specific Plan: Monitor Clinically Problem Text: No obvious acutely active system several organ systems that are involved with the amyloidosis. Follows with Onc as outpt. 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 Nutrition recommended ensure original 3 times a day in between meals. (4) Orthostatic hypotension Status: Chronic Response to Treatment: Stable Problem Text: c supine hypertension-keep HOB at least 40 degree Stable on HD midodrine 2.5 TID-decrease to 1.25 TID if SBP >160, DBP>95 (5) Physical deconditioning Status: Acute Problem Text: 12/27 PT not safe-plan home c services (6) Anemia, chronic disease Status: Chronic Problem Text: 12/29 stable hgb 10.5 (7) Perleche with candidiasis Status: Acute Problem Text: Improving on current regimen Encouraged not to lick lips 12/27 started Lotrisone BID perioral Plan/VTE VTE Prophylaxis Ordered?: Yes Plan IVF: Continue Diet: Supplement VS, I&O, 24H, Fishbone Vital Signs/I&O Vital Signs Date Time Temp Pulse Resp B/P (MAP) Pulse Ox O2 Delivery O2 Flow Rate FiO2 12/30/16 12:00 18 12/30/16 10:00 99.1 93 110/78 (89) 97 Room Air I&O- Last 24 Hours up to 6 AM 12/30/16 06:00 Intake Total 960 ml Output Total 3200 ml Balance -2240 ml Laboratory Data 24H LABS Laboratory Tests 2 12/29/16 16:45: White Blood Count 8.0, Red Blood Count 3.52L, Hemoglobin 11.1L, Hematocrit 33.0L , Mean Corpuscular Volume 93.7, Mean Corpuscular Hemoglobin 31.6, Mean Corpuscular Hemoglobin Concent 33.7, Red Cell Distribution Width 15.2H, Platelet Count 470H, Neutrophils (%) (Auto) 84.5H, Lymphocytes (%) (Auto) 9.1L, Monocytes (%) (Auto) 4.2, Eosinophils (%) (Auto) 0.9, Basophils (%) (Auto) 0.3, Neutrophils # (Auto) 6.8, Lymphocytes # (Auto) 0.7L, Monocytes # (Auto) 0.3, Eosinophils # (Auto) 0.1, Basophils # (Auto) 0.0, Large Unclassified Cells % 1.0 , Large Unclassified Cells # 0.1 12/30/16 05:40: Neutrophils 74, Lymphocytes (Manual) 17, Monocytes (Manual) 7, Eosinophils ( Manual) 2, Platelet Estimate NORMAL, Poikilocytosis 1+, Anisocytosis 1+, Anion Gap 5L, Glomerular Filtration Rate > 60.0, Blood Urea Nitrogen 13, Creatinine 0.91, Sodium Level 140, Potassium Level 3.8, Chloride Level 105, Carbon Dioxide Level 30, Calcium Level 7.7L, Aspartate Amino Transf (AST/SGOT) 19, Alanine Aminotransferase (ALT/SGPT) 23, Alkaline Phosphatase 370H, Total Bilirubin 0.3, Total Protein 4.5L, Albumin 1.2L, Magnesium Level 1.9, Albumin/Globulin Ratio 0.36L CBC/BMP Laboratory Tests 12/29/16 16:45 Red Blood Count 3.52 L, Mean Corpuscular Volume 93.7, Mean Corpuscular Hemoglobin 31.6, Mean Corpuscular Hemoglobin Concent 33.7, Red Cell Distribution Width 15.2 H, Neutrophils (%) (Auto) 84.5 H, Lymphocytes (%) (Auto ) 9.1 L, Monocytes (%) (Auto) 4.2, Eosinophils (%) (Auto) 0.9, Basophils (%) ( Auto) 0.3, Neutrophils # (Auto) 6.8, Lymphocytes # (Auto) 0.7 L, Monocytes # ( Auto) 0.3, Eosinophils # (Auto) 0.1, Basophils # (Auto) 0.0 12/30/16 05:40 Calcium Level 7.7 L, Aspartate Amino Transf (AST/SGOT) 19, Alanine Aminotransferase (ALT/SGPT) 23, Alkaline Phosphatase 370 H, Total Bilirubin 0.3 , Total Protein 4.5 L, Albumin 1.2 L Microbiology Microbiology 12/30/16 Clostridium difficile (PCR), Received Pending DALJIT DAY PA-C Dec 30, 2016 12:10
[2016-12-30] MEDS: MIRTAZAPINE 15 MG TAB PO SCH (20:27)
[2016-12-31 02:00] VITALS: BP 117/72
[2016-12-31] MEDS: oxyCODONE 5MG TAB PO PRN ×2 (02:17→09:06)
[2016-12-31] MEDS: VANCOMYCIN ORAL SOL 250MG/5ML ORAL SYRINGE PO SCH ×2 (05:37→12:43)
[2016-12-31] MEDS: LEVOTHYROXINE 125MCG TABLET (0.125MG) PO SCH (05:37)
[2016-12-31 06:00] VITALS: BP 144/93
[2016-12-31] MEDS: LACTOBACILLUS ACIDOPHILUS CAP (BACID) PO SCH ×2 (08:33→12:44)
[2016-12-31] MEDS: MEGESTROL 40 MG TAB PO SCH (08:34)
[2016-12-31] MEDS: MORPHINE 15 MG SA TAB PO SCH (08:34)
[2016-12-31] MEDS: CHOLESTYRAMINE 4 GM PWD PKT PO SCH (08:35)
[2016-12-31] MEDS: MIDODRINE 2.5 MG TAB PO SCH ×2 (08:37→12:44)
[2016-12-31] MEDS: LOTRISONE CREAM 15 GM (BETAMETH/CLOTRIMAZOLE) TOP SCH (08:38)
[2016-12-31] MEDS ORDERED: CLOT1CRE71 TOP (09:20)
[2016-12-31] MEDS ORDERED: FIRS1SOL3 PO (09:20)
[2016-12-31] MEDS ORDERED: RISATAB3 PO (09:20)
[2016-12-31] MEDS ORDERED: NYST10CR EXT (09:20)
--- NOTE | 2016-12-31 09:51 | DSES ---
DATE OF ADMISSION: 12/17/2016 DATE OF DISCHARGE: 12/31/2016 PRIMARY CARE PROVIDER (PCP): Dr. Keon Triplett ATTENDING TODAY: Dr. Orlin Lindsay HISTORY: This is a 56-year-old male patient who presented to [facility] with recurrent multiple loose stools and dehydration, who was admitted to the intensive care unit by Dr. Triplett for further management and monitoring. During his hospitalization, he did remain medically stable. He was found to have Clostridium (C) difficile colitis with a positive gastrointestinal (GI) panel. He was started on vancomycin orally 125 mg every 6 hours. When he failed to improved, this was increased to 250 mg. He did have some improvement and then had a relapse of loose stools and, therefore, this was increased to 500 mg four times daily. He has also been started on probiotics. His stools have been formed for the last 36 hours. His abdominal pain, bloating, and gas have also improved significantly. His labs have also stabilized. He has been followed during his hospitalization quite closely by Dr. Triplett, his primary care provider. He does have a history of amyloidosis with multiple organ involvement. Follows with oncology as an outpatient. He had been on midodrine due to chronic hypotension, but this was held secondary to hypertension likely secondary to fluid resuscitation in the intensive care unit. DISCHARGE DIAGNOSES: Include: Clostridium difficile colitis. Dehydration. Amyloidosis. Nephrotic syndrome associated with the amyloidosis. Metabolic encephalopathy. Orthostatic hypotension. DISCHARGE MEDICATIONS: Include: - betamethasone-clotrimazole topically to the skin around the mouth twice daily - vancomycin 500 mg every 6 hours times 8 additional days - nystatin 1000 units cream topically twice daily to the groin - probiotic two tablets with meals for 10 days - aspirin 81 mg daily - vitamin D3, 2000 units daily - B12, 1000 mcg daily - hydrochlorothiazide 12.5 mg daily as needed for leg swelling - levothyroxine 125 mcg daily - Megace 20 mg twice daily - mirtazapine 30 mg by mouth daily - morphine ER 30 mg twice daily - multivitamin one tablet daily - omeprazole 20 mg twice daily - Zofran 8 mg twice daily - oxycodone 10 mg every 4 hours as needed for pain - prochlorperazine 10 mg every 6 hours as needed for nausea or vomiting DISCHARGE PLAN: Will be to followup with Dr. Triplett in 1 week. This will be before completion of his vancomycin and, therefore, further dosing instructions can be provided depending on the patient's response and if this should be continued longer or a taper considered. Diet is regular. Activity should be as tolerated. Edited: merlin 01/02/2017 [id number]
[2016-12-31 10:00] VITALS: BP 130/84
[2016-12-31] MEDS ORDERED: INFLUENZA QUADRIVALENT PF VACCINE 0.5ML SYRINGE (90686) IM ONE (11:30)
[2016-12-31] MEDS: DRONABINOL 2.5 MG CAP (MARINOL) PO SCH (12:44)
[2016-12-31] MEDS ORDERED: MIDO2.5T PO (13:48)
[2016-12-31] MEDS ORDERED: DRON2.5C4 PO (13:48)
== END 2016-12-31 13:59 | disposition home health service (06) | DRG 545 ==
LOC: M ED 11:22 → M ED INP 14:57 → M MSPAV 16:11 → OBSVTOIN 12-17 10:33
PROVIDERS: ADMIT Family Medicine; ATTEND Family Medicine
DX: E85.4 Organ-limited amyloidosis (principal); G93.41 Metabolic encephalopathy; E43 Unspecified severe protein-calorie malnutrition; I43 Cardiomyopathy in diseases classified elsewhere; N04.8 Nephrotic syndrome with other morphologic changes; A04.7 Enterocolitis due to Clostridium difficile; B37.83 Candidal cheilitis; R53.1 Weakness; E03.9 Hypothyroidism, unspecified; R63.4 Abnormal weight loss; G89.4 Chronic pain syndrome; I95.1 Orthostatic hypotension; E86.0 Dehydration; E11.9 Type 2 diabetes mellitus without complications; Z99.3 Dependence on wheelchair; Z79.82 Long term (current) use of aspirin; Z79.899 Other long term (current) drug therapy; Z79.891 Long term (current) use of opiate analgesic; Z92.21 Personal history of antineoplastic chemotherapy

== ENCOUNTER → 2017-01-14 | Outpatient (REF) | payer MEDICARE, OTHER ==
[~2017-01-14] MED LIST changes: +CLOT1CRE71 TOP; +DRON2.5C4 PO; +FIRS1SOL3 PO; +LASI20TA PO; +MORP1CAP48 PO; +NYST10CR EXT; +RISATAB3 PO
== END ==
LOC: M SFHCADAM 10:40
PROVIDERS: ATTEND Family Medicine
DX: A04.72 Enterocolitis due to Clostridium difficile, not specified as recurrent (principal)

== ENCOUNTER → 2017-01-31 | Outpatient (REF) | payer MEDICARE, OTHER | LOC: M SFHCADAM 15:37 | PROVIDERS: ATTEND Family Medicine | DX: A04.72 Enterocolitis due to Clostridium difficile, not specified as recurrent (principal) ==

== ENCOUNTER 2017-02-26 08:35 | Inpatient (IN) | payer MEDICARE, BC, OTHER ==
[~2017-02-26] VITALS: Ht 172.7 cm; Wt 66.5 kg
[2017-02-26] MEDS: LEVOTHYROXINE 125MCG TABLET (0.125MG) PO SCH (06:00)
[2017-02-26 09:06] LABS: BASO % 0.4 % (0.0-1.0); EOS % 0.3 % (0.0-3.0); IMMATURE GRANULOCYTE % 0.4 % (0-0); LYMPH # 1.2 10^3/uL (1.5-4.5); LYMPH % 15.4 % (24.0-44.0); MEAN CORPUSCULAR HEMOGLOBIN 30.9 pg (27.0-33.0); MEAN CORPUSCULAR VOLUME 90.7 fl (80.0-96.0); MONO # 0.5 10^3/uL (0.0-0.8); NEUTROPHILS # 5.8 10^3/uL (1.8-7.7); NEUTROPHILS % 77.5 % (36.0-66.0); PLATELET COUNT, AUTOMATED 472 10^3/uL (150-450); RED CELL DISTRIBUTION WIDTH 16.1 % (11.5-14.5); WHITE BLOOD COUNT 7.5 10^3/uL (4.0-10.0)
[2017-02-26] MEDS ORDERED: DEXTROSE 50% 50 ML VIAL IV ONE (09:15)
[2017-02-26] MEDS ORDERED: NS 1,000 ML IV ONE (09:15)
[2017-02-26] MEDS ORDERED: DEXTROSE 50% 50 ML SYRINGE IV STA (09:24)
--- NOTE | 2017-02-26 09:38 | REP ---
CHEST, SINGLE VIEW: There is no evidence of acute infiltrate. No pleural effusion is seen. The heart is normal in size. The mediastinal silhouette is unremarkable. The visualized osseous structures are intact. IMPRESSION: No acute pulmonary disease. Signed by Celso Adams MD 02/26/2017 11:38 A
[2017-02-26 09:57] LABS: INR 1.07
[2017-02-26 10:09] LABS: ANION GAP 9 MEQ/L (8-16); BLOOD UREA NITROGEN 11 MG/DL (7-18); CALCIUM LEVEL 7.6 MG/DL (8.5-10.1); CARBON DIOXIDE LEVEL 31 MEQ/L (21-32); CHLORIDE LEVEL 98 MEQ/L (98-107); CREATININE FOR GFR 1.23 MG/DL (0.70-1.30); GLOMERULAR FILTRATION RATE > 60.0 (>56); GLUCOSE, FASTING 191 MG/DL (70-105); MAGNESIUM LEVEL 1.8 MG/DL (1.8-2.4); POTASSIUM SERUM 3.5 MEQ/L (3.5-5.1); SODIUM LEVEL 138 MEQ/L (136-145)
[2017-02-26] MEDS ORDERED: MORPHINE 4 MG/ML 1ML SYRINGE IV ONE (11:15)
[2017-02-26] MEDS ORDERED: oxyCODONE 5MG TAB PO ONE (12:00)
[2017-02-26] MEDS ORDERED: OXYC10TA12 PO (12:42)
[2017-02-26] MEDS ORDERED: CREO24CA PO (12:42)
[2017-02-26] MEDS ORDERED: DRON2.5C4 PO (12:42)
[2017-02-26] MEDS ORDERED: FURO20TA2 PO (12:42)
[2017-02-26] MEDS ORDERED: RISATAB3 PO (12:42)
[2017-02-26] MEDS ORDERED: MORP30TASA PO (12:42)
[2017-02-26] MEDS ORDERED: MIDO10TA PO (12:42)
[2017-02-26] MEDS ORDERED: FAMC250T3 PO (12:42)
--- NOTE | 2017-02-26 14:19 | ECGEPIP ---
Stationary ECG Study [facility] - ED Test Date: 2017-02-26 Pat Name: ADRIAN SETH Department: Room: - Gender: M Drafter Construction: jil : 1960 Requested By: CHRISTINE Carter Order Number: [id number] Reading MD: Jessica Merida Measurements Intervals [place] Rate: 110 P: 41 WV: 167 QRS: 51 QRSD: 89 T: 240 QT: 366 QTc: 497 Interpretive Statements SINUS TACHYCARDIA WITH OCCASIONAL SUPRAVENTRICULAR PREMATURE COMPLEXES LOW QRS VOLTAGE IN EXTREMITY LEADS NONSPECIFIC T-WAVE ABNORMALITY PRWP PROLONGED QTC DECREASED RATE 12/13/16 Electronically Signed On 02-26-2017 14:19:54 EST by Jessica Merida
[2017-02-26 15:10] VITALS: BP 98/80
[2017-02-26] MEDS: LACTOBACILLUS ACIDOPHILUS CAP (BACID) PO SCH (16:48)
[2017-02-26] MEDS: MORPHINE 30 MG SA TAB PO SCH ×2 (16:49→20:40)
[2017-02-26] MEDS: MIDODRINE 5 MG TAB PO SCH ×2 (16:50→21:30)
[2017-02-26 18:00] VITALS: BP 84/60
[2017-02-26] MEDS: CREON-24 CAPSULE PO SCH ×2 (19:07→22:06)
[2017-02-26] MEDS: CYANOCOBALAMIN 500 MCG TAB PO SCH (20:39)
[2017-02-26] MEDS: OMEPRAZOLE 20 MG CAP PO SCH (20:39)
[2017-02-26] MEDS: DRONABINOL 2.5 MG CAP (MARINOL) PO SCH (20:40)
[2017-02-26] MEDS: MIRTAZAPINE 15 MG TAB PO SCH (20:41)
[2017-02-26] MEDS ORDERED: ONDANSETRON 4 MG TAB (S0181) PO SCH (21:00)
[2017-02-26 22:00] VITALS: BP 100/65
[2017-02-26] MEDS: oxyCODONE 5MG TAB PO PRN (22:07)
[2017-02-26] MEDS: ASPIRIN 81 MG ENTERIC TAB PO SCH (22:15)
[2017-02-26] MEDS: VITAMIN D 1,000 INTERNATIONAL UNITS TABLET PO SCH (22:16)
[2017-02-26] MEDS: MULTIVITAMINS/MINERALS THERAP 1 TAB PO SCH (22:16)
[2017-02-27] MEDS: oxyCODONE 5MG TAB PO PRN ×3 (02:10→17:08)
[2017-02-27] MEDS: ONDANSETRON 4MG/2ML VIAL (J2405) IV PRN ×2 (02:25→08:44)
[2017-02-27 06:00] VITALS: BP 141/86
[2017-02-27] MEDS: LEVOTHYROXINE 125MCG TABLET (0.125MG) PO SCH (06:13)
[2017-02-27 06:23] LABS: MEAN CORPUSCULAR HEMOGLOBIN 30.5 pg (27.0-33.0); MEAN CORPUSCULAR HGB CONC 33.6 g/dl (32.0-36.5); MEAN CORPUSCULAR VOLUME 90.9 fl (80.0-96.0); PLATELET COUNT, AUTOMATED 401 10^3/uL (150-450); WHITE BLOOD COUNT 7.1 10^3/uL (4.0-10.0)
[2017-02-27 06:37] LABS: ANION GAP 6 MEQ/L (8-16); BLOOD UREA NITROGEN 15 MG/DL (7-18); CALCIUM LEVEL 7.7 MG/DL (8.5-10.1); CARBON DIOXIDE LEVEL 31 MEQ/L (21-32); CHLORIDE LEVEL 102 MEQ/L (98-107); CREATININE FOR GFR 1.28 MG/DL (0.70-1.30); GLOMERULAR FILTRATION RATE > 60.0 (>56); GLUCOSE, FASTING 83 MG/DL (70-105); SODIUM LEVEL 139 MEQ/L (136-145)
[2017-02-27] MEDS: OMEPRAZOLE 20 MG CAP PO SCH ×2 (08:39→20:35)
[2017-02-27] MEDS: VITAMIN D 1,000 INTERNATIONAL UNITS TABLET PO SCH (08:39)
[2017-02-27] MEDS: LACTOBACILLUS ACIDOPHILUS CAP (BACID) PO SCH ×3 (08:39→18:38)
[2017-02-27] MEDS: MULTIVITAMINS/MINERALS THERAP 1 TAB PO SCH (08:39)
[2017-02-27] MEDS: CREON-24 CAPSULE PO SCH ×3 (08:39→20:41)
[2017-02-27] MEDS: DRONABINOL 2.5 MG CAP (MARINOL) PO SCH ×2 (08:39→20:42)
[2017-02-27] MEDS: ASPIRIN 81 MG ENTERIC TAB PO SCH (08:40)
[2017-02-27] MEDS: MIDODRINE 5 MG TAB PO SCH ×3 (08:40→20:40)
[2017-02-27] MEDS: MORPHINE 30 MG SA TAB PO SCH ×3 (08:40→20:42)
[2017-02-27] MEDS: KCL 10MEQ IN 100ML SWI (KRUN) 10 MEQ in APPROPRIATE DILUENT 1 EA IV SCH ×10 (08:50→15:31)
[2017-02-27 10:00] VITALS: BP 120/70
[2017-02-27] MEDS: PROMETHAZINE INJ 25 MG/ML VIAL (J2550) IV PRN ×2 (11:10→17:08)
--- NOTE | 2017-02-27 13:03 | IPN ---
DATE OF SERVICE: 02/27/2017 Alfredo was seen in [facility] [place] admitted with some dehydration secondary to his advanced stage amyloidosis. He gets this recurrently. He often needs to become hydrated. He had a rough night. A lot of diarrhea, nausea, vomiting. 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 Complicating the picture is recent diagnosis of Clostridium difficile colitis. Fortunately his repeat Clostridium difficile yesterday was negative. PHYSICAL EXAMINATION: Afebrile. Vital signs stable. General appearance: Chronically ill appearing, cachectic. Lungs: Clear. Heart: Regular rate and rhythm. Abdomen: Soft. Diffusely tender. Nondistended. Good bowel sounds. No peripheral edema. IMPRESSION: 1. 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 He has intermittently been soft on his pressures. I am going to restart his IV fluids. I do this cautiously as he tends to retain a lot of volume after he is admitted for IV fluids and it takes a while to get past that edema. I tried to get by without intravenous fluids after admission but it looks like I need to restart these. 2. Hypokalemia, IV potassium has been ordered. 3. 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 He is on chronic opiate therapy for chronic pain. 4. Hypothyroidism. Levothyroxine 125 mcg daily. 5. Vitamin D deficiency. Continue his oral vitamin D. 6. Protein calorie malnutrition which is severe. He is on Marinol for this for whatever that is worth. He also takes some mirtazapine 30 mg daily at bedtime which should prompt some appetite as well. We tried to reduce his PPI therapy due to his history of Clostridium difficile colitis and PPI therapy is associated with recurrence of this. Unfortunately he does not tolerate weaning his PPIs. 7. Orthostatic hypotension. This is intermittent. He is on Midodrine for this. 8. Question pancreatic insufficiency. He is on empiric trial of pancreatic enzyme under the theory that perhaps his amyloidosis pancreatic insufficiency. I am not sure it has really done much for his chronic diarrhea. Discuss this with him when he is feeling better. 9. Hypertension. He is intermittently hypertensive. It is not currently an issue. I added it to the problem list as his prognosis was grim and treating his hypertension to "acceptable" levels. It really does not provide him any long term acute care registered nurse improvement in his prognosis. It does make him at increased risk of orthostatic hypotension and would caution against aggressive treatment of his blood pressure.
[2017-02-27 14:00] VITALS: BP 95/61
[2017-02-27] MEDS: KCL 20MEQ in NS 1000ML 1,000 ML IV SCH (14:00)
[2017-02-27 18:00] VITALS: BP 128/97
[2017-02-27] MEDS: MIRTAZAPINE 15 MG TAB PO SCH ×2 (20:40→21:00)
[2017-02-27] MEDS: CYANOCOBALAMIN 500 MCG TAB PO SCH ×2 (20:43→21:00)
[2017-02-27 22:00] VITALS: BP 110/73
[2017-02-28 02:00] VITALS: BP 148/100
[2017-02-28] MEDS: oxyCODONE 5MG TAB PO PRN ×4 (02:37→18:10)
[2017-02-28] MEDS: KCL 10MEQ IN 100ML SWI (KRUN) 10 MEQ in APPROPRIATE DILUENT 1 EA IV SCH ×10 (04:30→14:38)
[2017-02-28] MEDS: PROMETHAZINE INJ 25 MG/ML VIAL (J2550) IV PRN ×2 (05:36→18:04)
[2017-02-28] MEDS: LEVOTHYROXINE 125MCG TABLET (0.125MG) PO SCH (05:52)
[2017-02-28 06:00] VITALS: BP 137/85
[2017-02-28 06:12] LABS: MEAN CORPUSCULAR HEMOGLOBIN 30.8 pg (27.0-33.0); MEAN CORPUSCULAR HGB CONC 33.7 g/dl (32.0-36.5); MEAN CORPUSCULAR VOLUME 91.3 fl (80.0-96.0); PLATELET COUNT, AUTOMATED 415 10^3/uL (150-450); RED CELL DISTRIBUTION WIDTH 15.9 % (11.5-14.5); WHITE BLOOD COUNT 8.6 10^3/uL (4.0-10.0)
[2017-02-28 06:23] LABS: CALCIUM LEVEL 7.8 MG/DL (8.5-10.1); CREATININE FOR GFR 1.43 MG/DL (0.70-1.30); GLOMERULAR FILTRATION RATE 54.3 (>56); POTASSIUM SERUM 3.6 MEQ/L (3.5-5.1)
--- NOTE | 2017-02-28 07:41 | HPE ---
DATE OF ADMISSION: 02/26/2017 DIAGNOSIS: Dehydration from gastroenteritis/malabsorption secondary to amyloidosis. HISTORY: Sixto Ortega was admitted on 02/26/2017. I expected an observation overnight admission. Was going to generate his history and physical through our office base electronic medical record, however, he is now staying as an inpatient so I have been elected to just dictate his history and physical. He is recurrently admitted for dehydration. 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 He has severe arthritis and neuropathy from the amyloidosis, on chronic opiate therapy. He has had Clostridium difficile colitis this year which also complicates the picture. The rest of his medical history is unchanged from his frequent previous hospitalizations. MEDICATIONS: See list. ALLERGIES: Unknown. SOCIAL HISTORY: Nonsmoker, , attentive. and family. REVIEW OF SYSTEMS: No rectal bleeding, hematemesis. He is chronically chilled. He is steadily losing weight. PHYSICAL EXAMINATION: Vital signs per our flow sheet. He looks cachectic. He is wrapped up in blankets shivering. Dry mucous membranes. HEENT: Unremarkable. Lungs: Clear. Heart: Regular rhythm, tachycardic. Abdomen: Soft, diffusely mildly tender without distention. No masses. No peripheral edema. Labs reviewed. IMPRESSION: Dehydration secondary to amyloid enteropathy. PLAN: Admit for IV fluids, pain control and testing for Clostridium difficile colitis.
[2017-02-28] MEDS: ONDANSETRON 4MG/2ML VIAL (J2405) IV PRN ×3 (07:58→21:37)
[2017-02-28] MEDS: OMEPRAZOLE 20 MG CAP PO SCH ×2 (07:59→21:35)
[2017-02-28] MEDS: MIDODRINE 5 MG TAB PO SCH ×3 (07:59→21:35)
[2017-02-28] MEDS: LACTOBACILLUS ACIDOPHILUS CAP (BACID) PO SCH ×3 (08:00→18:05)
[2017-02-28] MEDS: MULTIVITAMINS/MINERALS THERAP 1 TAB PO SCH (08:00)
[2017-02-28] MEDS: MORPHINE 30 MG SA TAB PO SCH ×3 (08:00→21:36)
[2017-02-28] MEDS: ASPIRIN 81 MG ENTERIC TAB PO SCH (08:01)
[2017-02-28] MEDS: VITAMIN D 1,000 INTERNATIONAL UNITS TABLET PO SCH (08:01)
[2017-02-28] MEDS: DRONABINOL 2.5 MG CAP (MARINOL) PO SCH ×2 (08:01→21:35)
--- NOTE | 2017-02-28 09:43 | IPNPDOC ---
Subjective Date Seen The patient was seen on 02/28/17. Subjective Chief Complaint/HPI The patient is a 57-year-old male admitted with a reason for visit of Amyloid Disease Dehydration. Events since last encounter Pt this morning c/o intense, severe abd pain. He has also has nausea with vomiting. His nurse is at bedside, she has just given him more medications after getting his vomiting under control so hopefully his abd pain will improve. General: Denies: Fatigue Constitutional: Denies: Chills, Fever Pulmonary: Denies: Dyspnea, Cough Cardiovascular: Denies: Chest Pain, Palpitations Gastrointestinal: Reports: Nausea, Vomiting, Abdominal Pain, Denies: Diarrhea Neurological: Reports: Weakness Psych: Reports: Depression Objective Physical Examination General Exam: Positive: Alert, No Acute Distress ENT Exam: Positive: Mucous membr. moist/pink Chest Exam: Positive: Clear to auscultation, Normal air movement Heart Exam: Positive: Rate Normal, Normal S1, Normal S2 Abdomen Exam: Positive: Normal bowel sounds, Soft, Tenderness (diffusely tender to very mild palpation) Neuro Exam: Positive: Normal Speech Psych Exam: Positive: Mental status NL Assessment /Plan Problems (1) Dehydration Status: Acute Response to Treatment: Stable, Improving Discussed With: Nurse Problem Specific Plan: Monitor Clinically, Repeat Labs Problem Text: Pt on IVF wit K replacement per Dr Triplett, K this morning is 3.6, he revceived 6 runs yest and went from 3 to 3.6, so with the fluids it appears as though he depletes rather quickly. His oral intake is quite limited , ta given his N/V. (2) Amyloidosis Status: Chronic Response to Treatment: Stable (3) Orthostatic hypotension Status: Chronic Problem Specific Plan: Monitor Clinically Problem Text: His pressures are quite variable, he is not on any anti hypertensives and I don't believe this is necessary. (4) Anemia, chronic disease Status: Chronic Problem Specific Plan: Monitor Clinically, Repeat Labs Problem Text: Hgb stable, baseline about mid 11s, he is 12.8 today. Plan/VTE VTE Prophylaxis Ordered?: Yes VS, I&O, 24H, Fishbone Vital Signs/I&O Vital Signs Date Time Temp Pulse Resp B/P (MAP) Pulse Ox O2 Delivery O2 Flow Rate FiO2 02/28/17 08:00 20 02/28/17 06:00 98.2 100 137/85 (102) 94 11/17/17 05:37 Room Air Laboratory Data 24H LABS Laboratory Tests 2 02/27/17 12:31: Bedside Glucose (Misc Panel) 77 02/27/17 15:07: Urine Appearance HAZY, Urine Color JACKSON, Urine pH 5.0, Urine Specific Call 1.031, Urine Protein 3+H, Urine Glucose (UA) NEGATIVE, Urine Ketones NEGATIVE, Urine Urobilinogen 4.0H, Urine Bilirubin 1+H, Urine Leukocyte Esterase NEGATIVE , Urine Blood 2+H, Urine Nitrite NEGATIVE, Urine WBC (Auto) 5H, Urine RBC (Auto ) 2, Urine Hyaline Casts (Auto) 24, Urine Bacteria (Auto) NEGATIVE, Urine Squamous Epithelial Cells 0, Urine Mucus (Auto) SMALL, Urine Sperm (Auto) 02/28/17 05:25: Nucleated Red Blood Cells % (auto) 0.0, Anion Gap 6L, Glomerular Filtration Rate 54.3L, Blood Urea Nitrogen 16, Creatinine 1.43H, Sodium Level 141, Potassium Level 3.6, Chloride Level 104, Carbon Dioxide Level 31, Calcium Level 7.8L CBC/BMP Laboratory Tests 02/28/17 05:25 Red Blood Count 4.16 L, Mean Corpuscular Volume 91.3, Mean Corpuscular Hemoglobin 30.8, Mean Corpuscular Hemoglobin Concent 33.7, Red Cell Distribution Width 15.9 H, Calcium Level 7.8 L Microbiology Microbiology 02/26/17 Clostridium difficile (PCR) - Final, Complete DALJIT DAY PA-C Feb 28, 2017 09:43
[2017-02-28 10:00] VITALS: BP 157/104
[2017-02-28] MEDS: KCL 20MEQ in NS 1000ML 1,000 ML IV SCH ×3 (10:00→20:00)
[2017-02-28] MEDS ORDERED: MORPHINE 2 MG/ML 1ML SYRINGE IV ONE (10:30)
[2017-02-28] MEDS: CREON-24 CAPSULE PO SCH ×3 (10:43→21:43)
[2017-02-28 14:00] VITALS: BP 162/116
[2017-02-28 18:00] VITALS: BP 138/100
[2017-02-28] MEDS: MIRTAZAPINE 15 MG TAB PO SCH (21:35)
[2017-02-28] MEDS: CYANOCOBALAMIN 500 MCG TAB PO SCH (21:36)
[2017-02-28 22:00] VITALS: BP 118/87
[2017-03-01] VITALS (7 sets, daily range): BP systolic 113–180; BP diastolic 76–108
[2017-03-01] MEDS: PROMETHAZINE INJ 25 MG/ML VIAL (J2550) IV PRN (02:25)
[2017-03-01] MEDS: oxyCODONE 5MG TAB PO PRN ×3 (02:25→13:10)
[2017-03-01 05:44] LABS: MEAN CORPUSCULAR HEMOGLOBIN 30.8 pg (27.0-33.0); MEAN CORPUSCULAR HGB CONC 33.3 g/dl (32.0-36.5); MEAN CORPUSCULAR VOLUME 92.4 fl (80.0-96.0); PLATELET COUNT, AUTOMATED 397 10^3/uL (150-450); WHITE BLOOD COUNT 8.9 10^3/uL (4.0-10.0)
[2017-03-01 05:59] LABS: BLOOD UREA NITROGEN 16 MG/DL (7-18); CALCIUM LEVEL 7.6 MG/DL (8.5-10.1); CARBON DIOXIDE LEVEL 28 MEQ/L (21-32); CHLORIDE LEVEL 104 MEQ/L (98-107); CREATININE FOR GFR 1.18 MG/DL (0.70-1.30); GLOMERULAR FILTRATION RATE > 60.0 (>56); GLUCOSE, FASTING 60 MG/DL (70-105)
[2017-03-01 06:12] LABS: ANION GAP 7 MEQ/L (8-16); SODIUM LEVEL 139 MEQ/L (136-145)
[2017-03-01 06:15] LABS: POTASSIUM SERUM 4.4 MEQ/L (3.5-5.1)
[2017-03-01] MEDS: LEVOTHYROXINE 125MCG TABLET (0.125MG) PO SCH (06:31)
[2017-03-01] MEDS: ONDANSETRON 4MG/2ML VIAL (J2405) IV PRN ×2 (07:52→21:55)
[2017-03-01] MEDS: VITAMIN D 1,000 INTERNATIONAL UNITS TABLET PO SCH (09:48)
[2017-03-01] MEDS: CREON-24 CAPSULE PO SCH ×3 (09:48→21:42)
[2017-03-01] MEDS: MIDODRINE 5 MG TAB PO SCH ×3 (09:48→19:09)
[2017-03-01] MEDS: DRONABINOL 2.5 MG CAP (MARINOL) PO SCH ×2 (09:48→21:43)
[2017-03-01] MEDS: OMEPRAZOLE 20 MG CAP PO SCH ×2 (09:49→21:45)
[2017-03-01] MEDS: ASPIRIN 81 MG ENTERIC TAB PO SCH (09:49)
[2017-03-01] MEDS: LACTOBACILLUS ACIDOPHILUS CAP (BACID) PO SCH ×3 (09:50→17:29)
[2017-03-01] MEDS: MORPHINE 30 MG SA TAB PO SCH ×3 (09:50→21:43)
[2017-03-01] MEDS: MULTIVITAMINS/MINERALS THERAP 1 TAB PO SCH (09:50)
[2017-03-01] MEDS: KCL 20MEQ in NS 1000ML 1,000 ML IV SCH (13:19)
--- NOTE | 2017-03-01 14:34 | IPNPDOC ---
Subjective Date Seen The patient was seen on 03/01/17. Subjective Chief Complaint/HPI The patient is a 57-year-old male admitted with a reason for visit of Amyloid Disease Dehydration. Constitutional: Reports: Malaise Skin: Denies: Rash Pulmonary: Denies: Dyspnea, Cough Cardiovascular: Denies: Chest Pain, Palpitations Gastrointestinal: Reports: Nausea, Vomiting (chronic problems. somewhat better. able to eat a bit today.) Objective Physical Examination General Exam: Positive: Alert, No Acute Distress ENT Exam: Positive: Mucous membr. moist/pink Chest Exam: Positive: Clear to auscultation, Normal air movement Heart Exam: Positive: Rate Normal, Normal S1, Normal S2 Abdomen Exam: Positive: Normal bowel sounds, Soft, Tenderness (diffusely tender to very mild palpation) Neuro Exam: Positive: Normal Speech Psych Exam: Positive: Mental status NL Assessment /Plan Problems (1) Dehydration Status: Acute Response to Treatment: Stable, Improving Discussed With: Nurse Problem Specific Plan: Monitor Clinically, Repeat Labs Problem Text: 03/01: electrolytes normal today. will d/c IV and see if he can maintain overnight. Pt on IVF wit K replacement per Dr Triplett, Quinn this morning is 3.6, he revceived 6 runs yest and went from 3 to 3.6, so with the fluids it appears as though he depletes rather quickly. His oral intake is quite limited, ta given his N/V. (2) Amyloidosis Status: Chronic Response to Treatment: Stable (3) Orthostatic hypotension Status: Chronic Problem Specific Plan: Monitor Clinically Problem Text: His pressures are quite variable, he is not on any anti hypertensives and I don't believe this is necessary. (4) Anemia, chronic disease Status: Chronic Problem Specific Plan: Monitor Clinically, Repeat Labs Problem Text: 03/01: Hgb 12.5 today Hgb stable, baseline about mid 11s, he is 12.8 today. Plan/VTE VTE Prophylaxis Ordered?: Yes VS, I&O, 24H, Fishbone Vital Signs/I&O Vital Signs Date Time Temp Pulse Resp B/P (MAP) Pulse Ox O2 Delivery O2 Flow Rate FiO2 03/01/17 13:10 16 03/01/17 10:00 99.0 75 138/90 (106) 94 Room Air I&O- Last 24 Hours up to 6 AM 03/02/17 06:00 Intake Total 360 ml Output Total 500 ml Balance -140 ml Laboratory Data 24H LABS Laboratory Tests 2 03/01/17 05:20: Nucleated Red Blood Cells % (auto) 0.0, Anion Gap 7L, Glomerular Filtration Rate > 60.0, Blood Urea Nitrogen 16, Creatinine 1.18, Sodium Level 139, Potassium Level 4.4#, Chloride Level 104, Carbon Dioxide Level 28, Calcium Level 7.6L 03/01/17 09:51: Bedside Glucose (Misc Panel) 90 CBC/BMP Laboratory Tests 03/01/17 05:20 Red Blood Count 4.06 L, Mean Corpuscular Volume 92.4, Mean Corpuscular Hemoglobin 30.8, Mean Corpuscular Hemoglobin Concent 33.3, Red Cell Distribution Width 16.0 H, Calcium Level 7.6 L Microbiology Microbiology 02/26/17 Clostridium difficile (PCR) - Final, Complete Orlin Lindsay MD Mar 01, 2017 14:34
[2017-03-02 02:00] VITALS: BP 148/98
[2017-03-02] MEDS: oxyCODONE 5MG TAB PO PRN ×2 (02:36→13:34)
[2017-03-02] MEDS: LEVOTHYROXINE 125MCG TABLET (0.125MG) PO SCH (05:47)
[2017-03-02 06:00] VITALS: BP 116/72
[2017-03-02 06:33] LABS: MEAN CORPUSCULAR HEMOGLOBIN 30.1 pg (27.0-33.0); MEAN CORPUSCULAR VOLUME 91.3 fl (80.0-96.0); PLATELET COUNT, AUTOMATED 393 10^3/uL (150-450); RED CELL DISTRIBUTION WIDTH 15.9 % (11.5-14.5); WHITE BLOOD COUNT 7.1 10^3/uL (4.0-10.0)
[2017-03-02 07:01] LABS: ANION GAP 4 MEQ/L (8-16); BLOOD UREA NITROGEN 15 MG/DL (7-18); CALCIUM LEVEL 7.3 MG/DL (8.5-10.1); CARBON DIOXIDE LEVEL 30 MEQ/L (21-32); CHLORIDE LEVEL 106 MEQ/L (98-107); CREATININE FOR GFR 1.12 MG/DL (0.70-1.30); GLOMERULAR FILTRATION RATE > 60.0 (>56); GLUCOSE, FASTING 66 MG/DL (70-105); POTASSIUM SERUM 4.1 MEQ/L (3.5-5.1); SODIUM LEVEL 140 MEQ/L (136-145)
[2017-03-02] MEDS: MULTIVITAMINS/MINERALS THERAP 1 TAB PO SCH (09:22)
[2017-03-02] MEDS: OMEPRAZOLE 20 MG CAP PO SCH ×2 (09:22→21:10)
[2017-03-02] MEDS: ASPIRIN 81 MG ENTERIC TAB PO SCH (09:22)
[2017-03-02] MEDS: DRONABINOL 2.5 MG CAP (MARINOL) PO SCH ×2 (09:22→21:10)
[2017-03-02] MEDS: VITAMIN D 1,000 INTERNATIONAL UNITS TABLET PO SCH (09:23)
[2017-03-02] MEDS: MORPHINE 30 MG SA TAB PO SCH ×3 (09:23→21:11)
[2017-03-02] MEDS: LACTOBACILLUS ACIDOPHILUS CAP (BACID) PO SCH ×3 (09:23→18:43)
[2017-03-02] MEDS: MIDODRINE 5 MG TAB PO SCH ×3 (09:23→21:00)
[2017-03-02] MEDS: CREON-24 CAPSULE PO SCH ×3 (09:23→21:10)
[2017-03-02] MEDS: ONDANSETRON 4MG/2ML VIAL (J2405) IV PRN (09:24)
[2017-03-02 10:00] VITALS: BP 152/112
[2017-03-02] MEDS: PROMETHAZINE INJ 25 MG/ML VIAL (J2550) IV PRN (13:33)
--- NOTE | 2017-03-02 13:59 | IPNPDOC ---
Subjective Date Seen The patient was seen on 03/02/17. Subjective Chief Complaint/HPI The patient is a 57-year-old male admitted with a reason for visit of Amyloid Disease Dehydration. Events since last encounter continued poor appetite and abdominal distress making po intake difficult and limited. Constitutional: Reports: Malaise Skin: Reports: Other (swelling in feet, legs, arms ) Pulmonary: Denies: Dyspnea Cardiovascular: Denies: Chest Pain, Orthopnea Gastrointestinal: Reports: Nausea, Abdominal Pain Genitourinary: Denies: Dysuria Hematologic: Denies: Bruising Objective Physical Examination General Exam: Positive: Alert, No Acute Distress ENT Exam: Positive: Mucous membr. moist/pink Chest Exam: Positive: Clear to auscultation, Normal air movement Heart Exam: Positive: Rate Normal, Normal S1, Normal S2 Abdomen Exam: Positive: Normal bowel sounds, Soft, Tenderness (diffusely tender to very mild palpation) Skin Exam: Positive: Other skin issue (puffy, edema in hands, legs, feet.) Neuro Exam: Positive: Normal Speech Psych Exam: Positive: Mental status NL Assessment /Plan Problems (1) Dehydration Status: Acute Response to Treatment: Stable, Improving Discussed With: Nurse Problem Specific Plan: Monitor Clinically, Repeat Labs Problem Text: 03/01: electrolytes normal today. will d/c IV and see if he can maintain overnight. Pt on IVF wit K replacement per Quinn Oconnell this morning is 3.6, he revceived 6 runs yest and went from 3 to 3.6, so with the fluids it appears as though he depletes rather quickly. His oral intake is quite limited, ta given his N/V. (2) Amyloidosis Status: Chronic Response to Treatment: Stable Problem Text: abdominal pain, inanition and low albumin are caused by this problem. results in sufficient GI distress to make po intake impossible, leading to diarrhea and worsening of low albumin due to nutritional impairment (3) Orthostatic hypotension Status: Chronic Problem Specific Plan: Monitor Clinically Problem Text: His pressures are quite variable, he is not on any anti hypertensives and I don't believe this is necessary. (4) Anemia, chronic disease Status: Chronic Problem Specific Plan: Monitor Clinically, Repeat Labs Problem Text: 03/01: Hgb 12.5 today Hgb stable, baseline about mid 11s, he is 12.8 today. Plan/VTE VTE Prophylaxis Ordered?: Yes VS, I&O, 24H, Fishbone Vital Signs/I&O Vital Signs Date Time Temp Pulse Resp B/P (MAP) Pulse Ox O2 Delivery O2 Flow Rate FiO2 03/02/17 13:34 18 03/02/17 10:00 98.7 103 152/112 (125) 95 Room Air I&O- Last 24 Hours up to 6 AM 03/03/17 05:59 Intake Total 620 ml Output Total 550 ml Balance 70 ml Laboratory Data 24H LABS Laboratory Tests 2 03/02/17 05:57: Nucleated Red Blood Cells % (auto) 0.0, Anion Gap 4L, Glomerular Filtration Rate > 60.0, Blood Urea Nitrogen 15, Creatinine 1.12, Sodium Level 140, Potassium Level 4.1, Chloride Level 106, Carbon Dioxide Level 30, Calcium Level 7.3L CBC/BMP Laboratory Tests 03/02/17 05:57 Red Blood Count 3.89 L, Mean Corpuscular Volume 91.3, Mean Corpuscular Hemoglobin 30.1, Mean Corpuscular Hemoglobin Concent 33.0, Red Cell Distribution Width 15.9 H, Calcium Level 7.3 L Microbiology Microbiology 02/26/17 Clostridium difficile (PCR) - Final, Complete Orlin Lindsay MD Mar 02, 2017 13:59
[2017-03-02 14:00] VITALS: BP 112/86
[2017-03-02 18:00] VITALS: BP 166/110
[2017-03-02] MEDS: MIRTAZAPINE 15 MG TAB PO SCH (21:09)
[2017-03-02] MEDS: CYANOCOBALAMIN 500 MCG TAB PO SCH (21:11)
[2017-03-02 22:00] VITALS: BP 160/110
[2017-03-03] MEDS: ONDANSETRON 4MG/2ML VIAL (J2405) IV PRN ×3 (00:32→21:08)
[2017-03-03] MEDS: oxyCODONE 5MG TAB PO PRN ×5 (00:32→21:08)
[2017-03-03 02:00] VITALS: BP 120/88
[2017-03-03] MEDS: LEVOTHYROXINE 125MCG TABLET (0.125MG) PO SCH (05:45)
[2017-03-03 06:00] VITALS: BP 122/88
[2017-03-03 06:48] LABS: MEAN CORPUSCULAR HEMOGLOBIN 30.7 pg (27.0-33.0); MEAN CORPUSCULAR HGB CONC 33.5 g/dl (32.0-36.5); MEAN CORPUSCULAR VOLUME 91.6 fl (80.0-96.0); PLATELET COUNT, AUTOMATED 382 10^3/uL (150-450); RED CELL DISTRIBUTION WIDTH 15.9 % (11.5-14.5); WHITE BLOOD COUNT 6.3 10^3/uL (4.0-10.0)
[2017-03-03 07:01] LABS: ANION GAP 5 MEQ/L (8-16); BLOOD UREA NITROGEN 14 MG/DL (7-18); CALCIUM LEVEL 7.6 MG/DL (8.5-10.1); CARBON DIOXIDE LEVEL 29 MEQ/L (21-32); CHLORIDE LEVEL 104 MEQ/L (98-107); CREATININE FOR GFR 1.05 MG/DL (0.70-1.30); GLOMERULAR FILTRATION RATE > 60.0 (>56); GLUCOSE, FASTING 66 MG/DL (70-105); SODIUM LEVEL 138 MEQ/L (136-145)
[2017-03-03] MEDS: VITAMIN D 1,000 INTERNATIONAL UNITS TABLET PO SCH (10:08)
[2017-03-03] MEDS: MORPHINE 30 MG SA TAB PO SCH ×3 (10:08→21:07)
[2017-03-03] MEDS: LACTOBACILLUS ACIDOPHILUS CAP (BACID) PO SCH ×3 (10:09→17:29)
[2017-03-03] MEDS: MIDODRINE 5 MG TAB PO SCH ×3 (10:09→21:08)
[2017-03-03] MEDS: OMEPRAZOLE 20 MG CAP PO SCH ×2 (10:09→21:07)
[2017-03-03] MEDS: DRONABINOL 2.5 MG CAP (MARINOL) PO SCH ×2 (10:09→21:08)
[2017-03-03] MEDS: CREON-24 CAPSULE PO SCH ×3 (10:09→21:07)
[2017-03-03] MEDS: ASPIRIN 81 MG ENTERIC TAB PO SCH (10:10)
[2017-03-03] MEDS: MULTIVITAMINS/MINERALS THERAP 1 TAB PO SCH (10:10)
--- NOTE | 2017-03-03 10:11 | IPNPDOC ---
Subjective Date Seen The patient was seen on 03/03/17. Subjective Chief Complaint/HPI The patient is a 57-year-old male admitted with a reason for visit of Amyloid Disease Dehydration. Events since last encounter c/o abdominal pain today. + nausea. has prn medications. no BM x 2 days. Constitutional: Denies: Chills, Fever, Night Sweats Cardiovascular: Denies: Chest Pain, Palpitations, Orthopnea, Paroxysmal Noc. Dyspnea, Lt Headedness Gastrointestinal: Reports: Nausea, Abdominal Pain, Constipation, Denies: Vomiting, Diarrhea Psych: Reports: Mood Normal, Denies: Depression, Memory Issues Objective Physical Examination General Exam: Positive: Alert, No Acute Distress ENT Exam: Positive: Mucous membr. moist/pink Chest Exam: Positive: Clear to auscultation, Normal air movement Heart Exam: Positive: Rate Normal, Normal S1, Normal S2 Abdomen Exam: Positive: Normal bowel sounds, Soft, Tenderness (diffusely tender to very mild palpation) Skin Exam: Positive: Other skin issue (puffy, edema in hands, legs, feet.) Neuro Exam: Positive: Normal Speech Psych Exam: Positive: Mental status NL Assessment /Plan Problems (1) Dehydration Status: Acute Response to Treatment: Stable, Improving Discussed With: Nurse Problem Specific Plan: Monitor Clinically, Repeat Labs Problem Text: 03/03/17: drinking well 03/01: electrolytes normal today. will d/c IV and see if he can maintain overnight. Pt on IVF wit K replacement per Dr Triplett, Quinn this morning is 3.6, he revceived 6 runs yest and went from 3 to 3.6, so with the fluids it appears as though he depletes rather quickly. His oral intake is quite limited, ta given his N/V. (2) Abdominal pain Status: Chronic Problem Text: FUA today. declines bowel meds. hyperactive sounds in upper abdomen (3) Amyloidosis Status: Chronic Response to Treatment: Stable Problem Text: abdominal pain, inanition and low albumin are caused by this problem. results in sufficient GI distress to make po intake impossible, leading to diarrhea and worsening of low albumin due to nutritional impairment (4) Orthostatic hypotension Status: Chronic Problem Specific Plan: Monitor Clinically Problem Text: His pressures are quite variable, he is not on any anti hypertensives and I don't believe this is necessary. (5) Anemia, chronic disease Status: Chronic Problem Specific Plan: Monitor Clinically, Repeat Labs Problem Text: 03/01: Hgb 12.5 today Hgb stable, baseline about mid 11s, he is 12.8 today. Plan/VTE VTE Prophylaxis Ordered?: Yes Plan Family Medicine Attending Note: I saw and examined Mr. Ortega this morning; I discussed his care with PHILLIP Jacobsen and I agree with her note as documented. Mr. Ortega was c/o left elbow pain this morning - he state that it was "pinched" when he was brought in via stretcher. X-ray of elbow was performed and showed some swelling but otherwise was unremarkable. Abd KUB showed nonspecific gas pattern; patient has not had a BM in a few days which is likely related to his pain but declines constipation medications today. I encouraged him to eat as tolerated. (KES) VS, I&O, 24H, Fishbone Vital Signs/I&O Vital Signs Date Time Temp Pulse Resp B/P (MAP) Pulse Ox O2 Delivery O2 Flow Rate FiO2 03/03/17 06:00 99.3 98 16 122/88 (99) 91 Room Air Laboratory Data 24H LABS Laboratory Tests 2 03/03/17 06:30: Nucleated Red Blood Cells % (auto) 0.0, Anion Gap 5L, Glomerular Filtration Rate > 60.0, Blood Urea Nitrogen 14, Creatinine 1.05, Sodium Level 138, Potassium Level 4.0, Chloride Level 104, Carbon Dioxide Level 29, Calcium Level 7.6L CBC/BMP Laboratory Tests 03/03/17 06:30 Red Blood Count 3.91 L, Mean Corpuscular Volume 91.6, Mean Corpuscular Hemoglobin 30.7, Mean Corpuscular Hemoglobin Concent 33.5, Red Cell Distribution Width 15.9 H, Calcium Level 7.6 L Microbiology Microbiology 02/26/17 Clostridium difficile (PCR) - Final, Complete Hallie Carl Mar 03, 2017 10:11 NIKKI RODRIGUEZ MD Mar 03, 2017 12:02
--- NOTE | 2017-03-03 10:56 | REP ---
Clinical: Abdominal pain. Fall. Technique: Two supine views of the abdomen and pelvis. Findings: Bowel gas pattern is nonspecific. No organomegaly. Skeletal structures are intact. Impression: Nonspecific abdominal radiographs. No evidence for acute injury. Signed by Dax Melissa MD 03/03/2017 10:48 A
--- NOTE | 2017-03-03 10:57 | REP ---
Clinical: Trauma. Fall. Pain. Technique: AP and lateral views of the left elbow. Findings: No acute fracture or dislocation. Skeletal structures, joint spaces, and associated fat pads are normal in appearance. Lateral view cannot exclude mild posterior swelling. Impression: Mild posterior swelling. No acute fracture or dislocation identified. Signed by Dax Melissa MD 03/03/2017 10:49 A
[2017-03-03 14:00] VITALS: BP 126/91
[2017-03-03] MEDS: PROMETHAZINE INJ 25 MG/ML VIAL (J2550) IV PRN (14:36)
[2017-03-03 16:17] VITALS: BP 148/104
[2017-03-03] MEDS: CYANOCOBALAMIN 500 MCG TAB PO SCH (21:06)
[2017-03-03] MEDS: MIRTAZAPINE 15 MG TAB PO SCH (21:08)
[2017-03-03 22:00] VITALS: BP 104/81
[2017-03-04] MEDS: oxyCODONE 5MG TAB PO PRN ×4 (05:12→21:35)
[2017-03-04] MEDS: LEVOTHYROXINE 125MCG TABLET (0.125MG) PO SCH (05:38)
[2017-03-04 06:00] VITALS: BP 131/87
[2017-03-04 06:16] LABS: MEAN CORPUSCULAR HEMOGLOBIN 30.6 pg (27.0-33.0); MEAN CORPUSCULAR HGB CONC 33.5 g/dl (32.0-36.5); MEAN CORPUSCULAR VOLUME 91.3 fl (80.0-96.0); PLATELET COUNT, AUTOMATED 413 10^3/uL (150-450); RED CELL DISTRIBUTION WIDTH 15.8 % (11.5-14.5); WHITE BLOOD COUNT 5.9 10^3/uL (4.0-10.0)
[2017-03-04 06:23] LABS: ANION GAP 5 MEQ/L (8-16); BLOOD UREA NITROGEN 13 MG/DL (7-18); CALCIUM LEVEL 7.7 MG/DL (8.5-10.1); CARBON DIOXIDE LEVEL 29 MEQ/L (21-32); CHLORIDE LEVEL 105 MEQ/L (98-107); CREATININE FOR GFR 1.03 MG/DL (0.70-1.30); GLOMERULAR FILTRATION RATE > 60.0 (>56); GLUCOSE, FASTING 66 MG/DL (70-105); POTASSIUM SERUM 4.1 MEQ/L (3.5-5.1); SODIUM LEVEL 139 MEQ/L (136-145)
[2017-03-04] MEDS: ONDANSETRON 4MG/2ML VIAL (J2405) IV PRN ×2 (08:38→16:46)
[2017-03-04] MEDS: VITAMIN D 1,000 INTERNATIONAL UNITS TABLET PO SCH (08:39)
[2017-03-04] MEDS: MULTIVITAMINS/MINERALS THERAP 1 TAB PO SCH (08:39)
[2017-03-04] MEDS: LACTOBACILLUS ACIDOPHILUS CAP (BACID) PO SCH ×3 (08:39→18:00)
[2017-03-04] MEDS: CREON-24 CAPSULE PO SCH ×3 (08:39→21:36)
[2017-03-04] MEDS: MIDODRINE 5 MG TAB PO SCH ×3 (08:39→21:37)
[2017-03-04] MEDS: DRONABINOL 2.5 MG CAP (MARINOL) PO SCH ×2 (08:39→21:35)
[2017-03-04] MEDS: OMEPRAZOLE 20 MG CAP PO SCH ×2 (08:40→21:35)
[2017-03-04] MEDS: ASPIRIN 81 MG ENTERIC TAB PO SCH (08:40)
[2017-03-04] MEDS: MORPHINE 30 MG SA TAB PO SCH ×3 (08:40→21:36)
[2017-03-04] MEDS: PROMETHAZINE INJ 25 MG/ML VIAL (J2550) IV PRN ×2 (12:15→18:47)
[2017-03-04 14:00] VITALS: BP 131/86
--- NOTE | 2017-03-04 17:09 | IPNPDOC ---
Subjective Date Seen The patient was seen on 03/04/17. Subjective Chief Complaint/HPI The patient is a 57-year-old male admitted with a reason for visit of Amyloid Disease Dehydration. Constitutional: Denies: Chills Eyes: Denies: Pain ENT: Denies: Head Aches Pulmonary: Denies: Dyspnea, Cough Cardiovascular: Denies: Chest Pain, Palpitations Gastrointestinal: Denies: Nausea, Vomiting Genitourinary: Denies: Dysuria Objective Physical Examination General Exam: Positive: Alert, No Acute Distress ENT Exam: Positive: Mucous membr. moist/pink Chest Exam: Positive: Clear to auscultation, Normal air movement Heart Exam: Positive: Rate Normal, Normal S1, Normal S2 Abdomen Exam: Positive: Normal bowel sounds, Soft, Tenderness (diffusely tender to very mild palpation) Skin Exam: Positive: Other skin issue (puffy, edema in hands, legs, feet.) Neuro Exam: Positive: Normal Speech Psych Exam: Positive: Mental status NL Assessment /Plan Problems (1) Severe protein-calorie malnutrition Status: Chronic Problem Text: c secondary third-spacing 03/05 favor gentle furosemide/albumin infusion vs PPN/TPN 12/2016 albumin 1.2! (2) Dehydration Status: Acute Response to Treatment: Stable, Improving Discussed With: Nurse Problem Specific Plan: Monitor Clinically, Repeat Labs Problem Text: Continue oral rehydration 03/04 stable lytes-K 4.1//1121 only 600 cc po intake 03/01: IVF held (3) Abdominal pain Status: Chronic Problem Text: chronic generalized, stable favor 2 bowel wall edema 03/03 AXR normal AFL, no obvious obstruction (4) Amyloidosis Status: Chronic Response to Treatment: Stable Problem Text: abdominal pain, inanition and low albumin are caused by this problem. results in sufficient GI distress to make po intake impossible, leading to diarrhea and worsening of low albumin due to nutritional impairment (5) Orthostatic hypotension Status: Chronic Problem Specific Plan: Monitor Clinically Problem Text: His pressures are quite variable, he is not on any anti hypertensives and I don't believe this is necessary. (6) Anemia, chronic disease Status: Chronic Problem Specific Plan: Monitor Clinically, Repeat Labs Problem Text: ACD stable hgb at baseline 12s (7) Physical deconditioning Status: Chronic Response to Treatment: Stable Problem Text: 03/04 refuses to participate 03/03 PT consulted (8) Malabsorption Status: Chronic Response to Treatment: Stable Problem Text: 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-24 2 TID 02/26 - C diff PCR Plan/VTE VTE Prophylaxis Ordered?: Yes VS, I&O, 24H, Fishbone Vital Signs/I&O Vital Signs Date Time Temp Pulse Resp B/P (MAP) Pulse Ox O2 Delivery O2 Flow Rate FiO2 03/04/17 16:45 18 03/04/17 14:00 98.3 114 131/86 (101) 97 Room Air I&O- Last 24 Hours up to 6 AM 03/05/17 06:00 Intake Total 910 ml Output Total 800 ml Balance 110 ml Laboratory Data 24H LABS Laboratory Tests 2 03/04/17 05:44: Nucleated Red Blood Cells % (auto) 0.0, Anion Gap 5L, Glomerular Filtration Rate > 60.0, Blood Urea Nitrogen 13, Creatinine 1.03, Sodium Level 139, Potassium Level 4.1, Chloride Level 105, Carbon Dioxide Level 29, Calcium Level 7.7L CBC/BMP Laboratory Tests 03/04/17 05:44 Red Blood Count 4.02 L, Mean Corpuscular Volume 91.3, Mean Corpuscular Hemoglobin 30.6, Mean Corpuscular Hemoglobin Concent 33.5, Red Cell Distribution Width 15.8 H, Calcium Level 7.7 L Microbiology Microbiology 02/26/17 Clostridium difficile (PCR) - Final, Complete Nakul Duffy M.D. Mar 04, 2017 17:09
[2017-03-04 21:30] VITALS: BP 138/88
[2017-03-04] MEDS: CYANOCOBALAMIN 500 MCG TAB PO SCH (21:37)
[2017-03-04] MEDS: MIRTAZAPINE 15 MG TAB PO SCH (21:37)
[2017-03-05] MEDS: oxyCODONE 5MG TAB PO PRN ×2 (04:54→12:54)
[2017-03-05] MEDS: LEVOTHYROXINE 125MCG TABLET (0.125MG) PO SCH (05:35)
[2017-03-05 05:56] LABS: MEAN CORPUSCULAR HEMOGLOBIN 30.4 pg (27.0-33.0); MEAN CORPUSCULAR HGB CONC 33.5 g/dl (32.0-36.5); MEAN CORPUSCULAR VOLUME 90.8 fl (80.0-96.0); PLATELET COUNT, AUTOMATED 410 10^3/uL (150-450); RED CELL DISTRIBUTION WIDTH 15.7 % (11.5-14.5); WHITE BLOOD COUNT 5.6 10^3/uL (4.0-10.0)
[2017-03-05 06:00] VITALS: BP 149/80
[2017-03-05 06:14] LABS: ALBUMIN/GLOBULIN RATIO 0.31 (1.00-1.93); ALKALINE PHOSPHATASE 271 U/L (45-117); ALT/SGPT 12 U/L (12-78); ANION GAP 6 MEQ/L (8-16); AST/SGOT 17 U/L (7-37); BILIRUBIN,TOTAL 0.5 MG/DL (0.2-1.0); BLOOD UREA NITROGEN 13 MG/DL (7-18); CALCIUM LEVEL 7.8 MG/DL (8.5-10.1); CARBON DIOXIDE LEVEL 28 MEQ/L (21-32); CHLORIDE LEVEL 104 MEQ/L (98-107); CREATININE FOR GFR 0.87 MG/DL (0.70-1.30); GLOMERULAR FILTRATION RATE > 60.0 (>56); GLUCOSE, FASTING 63 MG/DL (70-105); MAGNESIUM LEVEL 1.6 MG/DL (1.8-2.4); POTASSIUM SERUM 3.9 MEQ/L (3.5-5.1); SODIUM LEVEL 138 MEQ/L (136-145); TOTAL PROTEIN 4.2 GM/DL (6.4-8.2)
[2017-03-05] MEDS ORDERED: FUROSEMIDE 20 MG TAB PO ONE (09:00)
[2017-03-05] MEDS: CREON-24 CAPSULE PO SCH ×3 (09:12→20:45)
[2017-03-05] MEDS: DRONABINOL 2.5 MG CAP (MARINOL) PO SCH ×2 (09:13→20:43)
[2017-03-05] MEDS: MORPHINE 30 MG SA TAB PO SCH ×3 (09:13→20:45)
[2017-03-05] MEDS: ONDANSETRON 4MG/2ML VIAL (J2405) IV PRN ×2 (09:13→20:37)
[2017-03-05] MEDS: LACTOBACILLUS ACIDOPHILUS CAP (BACID) PO SCH ×3 (09:13→17:33)
[2017-03-05] MEDS: ASPIRIN 81 MG ENTERIC TAB PO SCH (09:13)
[2017-03-05] MEDS: VITAMIN D 1,000 INTERNATIONAL UNITS TABLET PO SCH (09:14)
[2017-03-05] MEDS: MULTIVITAMINS/MINERALS THERAP 1 TAB PO SCH (09:14)
[2017-03-05] MEDS: MIDODRINE 5 MG TAB PO SCH ×3 (09:14→20:44)
[2017-03-05] MEDS: OMEPRAZOLE 20 MG CAP PO SCH ×2 (09:14→20:44)
[2017-03-05 09:24] VITALS: BP 100/62
[2017-03-05] MEDS: PROMETHAZINE INJ 25 MG/ML VIAL (J2550) IV PRN (13:00)
--- NOTE | 2017-03-05 13:00 | IPNPDOC ---
Subjective Date Seen The patient was seen on 03/05/17. Subjective Chief Complaint/HPI The patient is a 57-year-old male admitted with a reason for visit of Amyloid Disease Dehydration. Events since last encounter Continues with weakness, lethargy, fatigue and nausea. Constitutional: Reports: Malaise, Fatigue, Lethargy Pulmonary: Denies: Dyspnea, Cough Cardiovascular: Denies: Chest Pain, Palpitations, Orthopnea, Paroxysmal Noc. Dyspnea, Lt Headedness Gastrointestinal: Reports: Nausea, Constipation Objective Physical Examination General Exam: Positive: Alert, No Acute Distress ENT Exam: Positive: Mucous membr. moist/pink Chest Exam: Positive: Clear to auscultation, Normal air movement Heart Exam: Positive: Rate Normal, Normal S1, Normal S2 Abdomen Exam: Positive: Normal bowel sounds, Soft, Tenderness (diffusely tender to very mild palpation) Skin Exam: Positive: Other skin issue (puffy, edema in hands, legs, feet.) Neuro Exam: Positive: Normal Speech Psych Exam: Positive: Mental status NL Assessment /Plan Problems (1) Severe protein-calorie malnutrition Status: Chronic Problem Text: 03/05/17: Furosemide 20 mg x 1. Albumin 25 % ordered. c secondary third-spacing 03/05 favor gentle furosemide/albumin infusion vs PPN/TPN 12/2016 albumin 1.2! (2) Dehydration Status: Acute Response to Treatment: Stable, Improving Discussed With: Nurse Problem Specific Plan: Monitor Clinically, Repeat Labs Problem Text: Continue oral rehydration 03/04 stable lytes-K 4.1//1121 only 600 cc po intake 03/01: IVF held (3) Abdominal pain Status: Chronic Problem Text: chronic generalized, stable favor 2 bowel wall edema 03/03 AXR normal AFL, no obvious obstruction (4) Amyloidosis Status: Chronic Response to Treatment: Stable Problem Text: abdominal pain, inanition and low albumin are caused by this problem. results in sufficient GI distress to make po intake impossible, leading to diarrhea and worsening of low albumin due to nutritional impairment (5) Orthostatic hypotension Status: Chronic Problem Specific Plan: Monitor Clinically Problem Text: Pressures are stable (6) Anemia, chronic disease Status: Chronic Problem Specific Plan: Monitor Clinically, Repeat Labs Problem Text: ACD stable hgb at baseline 12s (7) Physical deconditioning Status: Chronic Response to Treatment: Stable Problem Text: 03/04 refuses to participate 03/03 PT consulted (8) Malabsorption Status: Chronic Response to Treatment: Stable Problem Text: 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 Ortega this morning; I saw him again this after to consent him for albumin infusion. He is unchanged symptomatically; hopefully albumin and lasix will help his third-spacing and make him feel better; this may need to be repeated daily until he improves. (KES ) VS, I&O, 24H, Fishbone Vital Signs/I&O Vital Signs Date Time Temp Pulse Resp B/P (MAP) Pulse Ox O2 Delivery O2 Flow Rate FiO2 03/05/17 09:24 100/62 (75) 03/05/17 09:13 18 Room Air 03/05/17 06:00 97.9 76 92 I&O- Last 24 Hours up to 6 AM 03/06/17 06:00 Intake Total 480 ml Output Total 1575 ml Balance -1095 ml Laboratory Data 24H LABS Laboratory Tests 2 03/05/17 05:47: Nucleated Red Blood Cells % (auto) 0.0, Anion Gap 6L, Glomerular Filtration Rate > 60.0, Blood Urea Nitrogen 13, Creatinine 0.87, Sodium Level 138, Potassium Level 3.9, Chloride Level 104, Carbon Dioxide Level 28, Calcium Level 7.8L, Aspartate Amino Transf (AST/SGOT) 17, Alanine Aminotransferase (ALT/SGPT) 12, Alkaline Phosphatase 271H, Total Bilirubin 0.5, Total Protein 4.2L, Albumin 1.0L, Magnesium Level 1.6L, VS-Vjn-[id number]-Type Natriuretic Peptide 9059H, Albumin/ Globulin Ratio 0.31L CBC/BMP Laboratory Tests 03/05/17 05:47 Red Blood Count 4.11 L, Mean Corpuscular Volume 90.8, Mean Corpuscular Hemoglobin 30.4, Mean Corpuscular Hemoglobin Concent 33.5, Red Cell Distribution Width 15.7 H, Calcium Level 7.8 L, Aspartate Amino Transf (AST/SGOT ) 17, Alanine Aminotransferase (ALT/SGPT) 12, Alkaline Phosphatase 271 H, Total Bilirubin 0.5, Total Protein 4.2 L, Albumin 1.0 L Microbiology Microbiology 02/26/17 Clostridium difficile (PCR) - Final, Complete Hallie Carl Mar 05, 2017 13:00 NIKKI RODRIGUEZ MD Mar 05, 2017 16:15
[2017-03-05 14:00] VITALS: BP 125/78
[2017-03-05] MEDS: CYANOCOBALAMIN 500 MCG TAB PO SCH (20:43)
[2017-03-05] MEDS: MIRTAZAPINE 15 MG TAB PO SCH (21:40)
[2017-03-05 22:00] VITALS: BP 143/98
[2017-03-06] MEDS: oxyCODONE 5MG TAB PO PRN ×4 (03:00→19:49)
[2017-03-06] MEDS: LEVOTHYROXINE 125MCG TABLET (0.125MG) PO SCH (05:30)
[2017-03-06 06:00] VITALS: BP 122/84
[2017-03-06] MEDS: MORPHINE 30 MG SA TAB PO SCH ×3 (08:14→21:10)
[2017-03-06] MEDS: CREON-24 CAPSULE PO SCH ×3 (08:14→21:11)
[2017-03-06] MEDS: ONDANSETRON 4MG/2ML VIAL (J2405) IV PRN ×2 (08:14→16:40)
[2017-03-06] MEDS: LACTOBACILLUS ACIDOPHILUS CAP (BACID) PO SCH ×3 (08:15→16:28)
[2017-03-06] MEDS: MIDODRINE 5 MG TAB PO SCH ×3 (08:15→21:00)
[2017-03-06] MEDS: VITAMIN D 1,000 INTERNATIONAL UNITS TABLET PO SCH (08:15)
[2017-03-06] MEDS: OMEPRAZOLE 20 MG CAP PO SCH ×2 (08:15→21:11)
[2017-03-06] MEDS: DRONABINOL 2.5 MG CAP (MARINOL) PO SCH ×2 (08:15→21:13)
[2017-03-06] MEDS: ASPIRIN 81 MG ENTERIC TAB PO SCH (08:16)
[2017-03-06] MEDS: MULTIVITAMINS/MINERALS THERAP 1 TAB PO SCH (08:16)
[2017-03-06] MEDS ORDERED: MAG SULF 1GM/100ML (MAG RUN) 1 GM in APPROPRIATE DILUENT 1 EA IV ONE (09:45)
--- NOTE | 2017-03-06 10:31 | IPNPDOC ---
Subjective Date Seen The patient was seen on 03/06/17. Subjective Chief Complaint/HPI The patient is a 57-year-old male admitted with a reason for visit of Amyloid Disease Dehydration. Events since last encounter c/o abdominal pain today. Constitutional: Denies: Chills, Fever, Night Sweats ENT: Denies: Head Aches, Ear Pain, Dysphagia Pulmonary: Denies: Dyspnea, Cough Cardiovascular: Denies: Chest Pain, Palpitations, Orthopnea, Paroxysmal Noc. Dyspnea, Lt Headedness Gastrointestinal: Reports: Nausea, Abdominal Pain, Denies: Vomiting, Diarrhea, Constipation Objective Physical Examination General Exam: Positive: Alert, No Acute Distress ENT Exam: Positive: Mucous membr. moist/pink Chest Exam: Positive: Clear to auscultation, Normal air movement Heart Exam: Positive: Rate Normal, Normal S1, Normal S2 Abdomen Exam: Positive: Normal bowel sounds, Soft, Tenderness (diffusely tender to very mild palpation) Skin Exam: Positive: Other skin issue (puffy, edema in hands, legs, feet.) Neuro Exam: Positive: Normal Speech Psych Exam: Positive: Mental status NL Assessment /Plan Problems (1) Severe protein-calorie malnutrition Status: Chronic Problem Text: 03/06/17: Furosemide 20 mg x 1. Albumin 25 % ordered. repeat today 03/05/17: Furosemide 20 mg x 1. Albumin 25 % ordered. c secondary third-spacing 03/05 favor gentle furosemide/albumin infusion vs PPN/TPN 12/2016 albumin 1.2! (2) Dehydration Status: Acute Response to Treatment: Stable, Improving Discussed With: Nurse Problem Specific Plan: Monitor Clinically, Repeat Labs Problem Text: Continue oral rehydration 03/04 stable lytes-K 4.1//1121 only 600 cc po intake 03/01: IVF held (3) Abdominal pain Status: Chronic Problem Text: chronic generalized, stable favor 2 bowel wall edema 03/03 AXR normal AFL, no obvious obstruction (4) Amyloidosis Status: Chronic Response to Treatment: Stable Problem Text: abdominal pain, inanition and low albumin are caused by this problem. results in sufficient GI distress to make po intake impossible, leading to diarrhea and worsening of low albumin due to nutritional impairment (5) Orthostatic hypotension Status: Chronic Problem Specific Plan: Monitor Clinically Problem Text: Pressures are stable (6) Anemia, chronic disease Status: Chronic Problem Specific Plan: Monitor Clinically, Repeat Labs Problem Text: ACD stable hgb at baseline 12s (7) Physical deconditioning Status: Chronic Response to Treatment: Stable Problem Text: 03/04 refuses to participate 03/03 PT consulted (8) Malabsorption Status: Chronic Response to Treatment: Stable Problem Text: 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 Ortega this morning; he feels that his peripheral edema is a little bit improved but is still c/o nausea and constipation. He declines medication for constipation; last BM was 2 days ago per patient. I discussed his care with PHILLIP Jacobsen and I agree with her note as documented. Patient's Mag is persistently low - Mag run x1 given this morning for this. (KES) VS, I&O, 24H, Fishbone Vital Signs/I&O Vital Signs Date Time Temp Pulse Resp B/P (MAP) Pulse Ox O2 Delivery O2 Flow Rate FiO2 03/06/17 08:46 20 03/06/17 06:00 98.5 91 122/84 (97) 93 Room Air I&O- Last 24 Hours up to 6 AM 03/07/17 06:00 Intake Total 360 ml Output Total 0 ml Balance 360 ml Laboratory Data Microbiology Microbiology 02/26/17 Clostridium difficile (PCR) - Final, Complete Hallie Carl Mar 06, 2017 10:31 NIKKI RODRIGUEZ MD Mar 06, 2017 12:43
[2017-03-06 10:47] LABS: BASO % 0.5 % (0.0-1.0); EOS # 0.1 10^3/uL (0.0-0.50); EOS % 0.8 % (0.0-3.0); IMMATURE GRANULOCYTE % 0.3 % (0-0); LYMPH # 0.8 10^3/uL (1.5-4.5); LYMPH % 9.5 % (24.0-44.0); MEAN CORPUSCULAR HEMOGLOBIN 30.3 pg (27.0-33.0); MEAN CORPUSCULAR VOLUME 91.8 fl (80.0-96.0); MONO # 0.6 10^3/uL (0.0-0.8); MONO % 6.5 % (0.0-5.0); NEUTROPHILS # 7.2 10^3/uL (1.8-7.7); NEUTROPHILS % 82.4 % (36.0-66.0); PLATELET COUNT, AUTOMATED 447 10^3/uL (150-450); RED CELL DISTRIBUTION WIDTH 15.9 % (11.5-14.5); WHITE BLOOD COUNT 8.8 10^3/uL (4.0-10.0)
[2017-03-06 11:09] LABS: ALBUMIN 1.4 GM/DL (3.2-5.2); ALKALINE PHOSPHATASE 284 U/L (45-117); ALT/SGPT 13 U/L (12-78); ANION GAP 8 MEQ/L (8-16); AST/SGOT 22 U/L (7-37); BILIRUBIN,TOTAL 0.6 MG/DL (0.2-1.0); BLOOD UREA NITROGEN 12 MG/DL (7-18); CALCIUM LEVEL 7.7 MG/DL (8.5-10.1); CARBON DIOXIDE LEVEL 28 MEQ/L (21-32); CHLORIDE LEVEL 102 MEQ/L (98-107); CREATININE FOR GFR 0.98 MG/DL (0.70-1.30); GLOMERULAR FILTRATION RATE > 60.0 (>56); GLUCOSE, FASTING 77 MG/DL (70-105); MAGNESIUM LEVEL 1.6 MG/DL (1.8-2.4); POTASSIUM SERUM 3.9 MEQ/L (3.5-5.1); SODIUM LEVEL 138 MEQ/L (136-145); TOTAL PROTEIN 4.2 GM/DL (6.4-8.2)
[2017-03-06] MEDS: FUROSEMIDE 20 MG/2 ML VIAL (J1940) IV SCH (12:56)
[2017-03-06 14:00] VITALS: BP 110/82
[2017-03-06] MEDS: PROMETHAZINE INJ 25 MG/ML VIAL (J2550) IV PRN (19:49)
[2017-03-06] MEDS: CYANOCOBALAMIN 500 MCG TAB PO SCH (21:11)
[2017-03-06] MEDS: MIRTAZAPINE 15 MG TAB PO SCH (21:13)
[2017-03-06 22:00] VITALS: BP 142/86
[2017-03-07] MEDS: oxyCODONE 5MG TAB PO PRN ×2 (02:38→21:08)
[2017-03-07] MEDS: ONDANSETRON 4MG/2ML VIAL (J2405) IV PRN ×2 (05:33→16:55)
[2017-03-07] MEDS: LEVOTHYROXINE 125MCG TABLET (0.125MG) PO SCH ×2 (05:33→06:00)
[2017-03-07 05:56] LABS: BASO % 0.5 % (0.0-1.0); EOS % 0.6 % (0.0-3.0); IMMATURE GRANULOCYTE % 0.3 % (0-0); LYMPH % 14.9 % (24.0-44.0); MEAN CORPUSCULAR HEMOGLOBIN 30.5 pg (27.0-33.0); MEAN CORPUSCULAR HGB CONC 33.1 g/dl (32.0-36.5); MEAN CORPUSCULAR VOLUME 92.1 fl (80.0-96.0); MONO # 0.3 10^3/uL (0.0-0.8); MONO % 4.1 % (0.0-5.0); NEUTROPHILS # 5.3 10^3/uL (1.8-7.7); NEUTROPHILS % 79.6 % (36.0-66.0); PLATELET COUNT, AUTOMATED 444 10^3/uL (150-450); RED CELL DISTRIBUTION WIDTH 15.9 % (11.5-14.5); WHITE BLOOD COUNT 6.7 10^3/uL (4.0-10.0)
[2017-03-07 06:00] VITALS: BP 153/90
[2017-03-07 06:28] LABS: ALBUMIN 1.4 GM/DL (3.2-5.2); ALBUMIN/GLOBULIN RATIO 0.41 (1.00-1.93); ALKALINE PHOSPHATASE 261 U/L (45-117); ALT/SGPT 13 U/L (12-78); ANION GAP 6 MEQ/L (8-16); AST/SGOT 21 U/L (7-37); BILIRUBIN,TOTAL 0.7 MG/DL (0.2-1.0); BLOOD UREA NITROGEN 10 MG/DL (7-18); CARBON DIOXIDE LEVEL 31 MEQ/L (21-32); CHLORIDE LEVEL 102 MEQ/L (98-107); CREATININE FOR GFR 1.09 MG/DL (0.70-1.30); GLOMERULAR FILTRATION RATE > 60.0 (>56); GLUCOSE, FASTING 60 MG/DL (70-105); MAGNESIUM LEVEL 1.4 MG/DL (1.8-2.4); POTASSIUM SERUM 3.8 MEQ/L (3.5-5.1); SODIUM LEVEL 139 MEQ/L (136-145); TOTAL PROTEIN 4.8 GM/DL (6.4-8.2)
[2017-03-07] MEDS: PROMETHAZINE INJ 25 MG/ML VIAL (J2550) IV PRN (08:32)
[2017-03-07] MEDS: CREON-24 CAPSULE PO SCH ×3 (08:33→21:19)
[2017-03-07] MEDS: MIDODRINE 5 MG TAB PO SCH ×3 (08:33→21:06)
[2017-03-07] MEDS: OMEPRAZOLE 20 MG CAP PO SCH ×2 (08:33→21:07)
[2017-03-07] MEDS: DRONABINOL 2.5 MG CAP (MARINOL) PO SCH ×2 (08:33→21:05)
[2017-03-07] MEDS: ASPIRIN 81 MG ENTERIC TAB PO SCH (08:33)
[2017-03-07] MEDS: VITAMIN D 1,000 INTERNATIONAL UNITS TABLET PO SCH (08:33)
[2017-03-07] MEDS: MULTIVITAMINS/MINERALS THERAP 1 TAB PO SCH (08:33)
[2017-03-07] MEDS: LACTOBACILLUS ACIDOPHILUS CAP (BACID) PO SCH ×3 (08:33→16:55)
[2017-03-07] MEDS: FUROSEMIDE 20 MG/2 ML VIAL (J1940) IV SCH (08:33)
[2017-03-07] MEDS: MORPHINE 30 MG SA TAB PO SCH ×3 (08:39→21:09)
[2017-03-07] MEDS ORDERED: FUROSEMIDE 20 MG/2 ML VIAL (J1940) IV ONE (10:30)
--- NOTE | 2017-03-07 10:30 | IPNPDOC ---
Subjective Date Seen The patient was seen on 03/07/17. Subjective Chief Complaint/HPI The patient is a 57-year-old male admitted with a reason for visit of Amyloid Disease Dehydration. Events since last encounter Had episode of abdominal pain with nausea with am including dry heaves. relieved with Zofran prn. Constitutional: Denies: Chills, Fever, Night Sweats ENT: Denies: Head Aches, Ear Pain, Dysphagia Skin: Denies: Rash, Lesions, Breakdown Pulmonary: Denies: Dyspnea, Cough Cardiovascular: Denies: Chest Pain, Palpitations, Orthopnea, Paroxysmal Noc. Dyspnea, Lt Headedness Gastrointestinal: Reports: Nausea, Abdominal Pain, Denies: Vomiting, Constipation Genitourinary: Reports: Frequency (after Furosemide) Objective Physical Examination General Exam: Positive: Alert, No Acute Distress ENT Exam: Positive: Mucous membr. moist/pink Chest Exam: Positive: Clear to auscultation, Normal air movement Heart Exam: Positive: Rate Normal, Normal S1, Normal S2 Abdomen Exam: Positive: Normal bowel sounds, Soft, Tenderness (diffusely tender to very mild palpation) Extremity Exam: Positive: Edema (2-3 + boggy edema to legs up to mid thigh) Skin Exam: Positive: Other skin issue (puffy, edema in hands, legs, feet.) Neuro Exam: Positive: Normal Speech Psych Exam: Positive: Mental status NL Assessment /Plan Problems (1) Severe protein-calorie malnutrition Status: Chronic Problem Text: 03/07/17: Furosemide 20 mg x 1. Albumin 25 % ordered. repeat today 03/06/17: Furosemide 20 mg x 1. Albumin 25 % ordered. repeat today 03/05/17: Furosemide 20 mg x 1. Albumin 25 % ordered. c secondary third-spacing 03/05 favor gentle furosemide/albumin infusion vs PPN/TPN 12/2016 albumin 1.2! (2) Dehydration Status: Acute Response to Treatment: Stable, Improving Discussed With: Nurse Problem Specific Plan: Monitor Clinically, Repeat Labs Problem Text: Continue oral rehydration 03/04 stable lytes-K 4.1/1121 only 600 cc po intake 03/01: IVF held (3) Abdominal pain Status: Chronic Problem Text: chronic generalized, stable favor 2 bowel wall edema 03/03 AXR normal AFL, no obvious obstruction (4) Amyloidosis Status: Chronic Response to Treatment: Stable Problem Text: abdominal pain, inanition and low albumin are caused by this problem. results in sufficient GI distress to make po intake impossible, leading to diarrhea and worsening of low albumin due to nutritional impairment (5) Orthostatic hypotension Status: Chronic Problem Specific Plan: Monitor Clinically Problem Text: Pressures are stable (6) Anemia, chronic disease Status: Chronic Problem Specific Plan: Monitor Clinically, Repeat Labs Problem Text: ACD stable hgb at baseline 12s (7) Physical deconditioning Status: Chronic Response to Treatment: Stable Problem Text: 03/04 refuses to participate 03/03 PT consulted (8) Malabsorption Status: Chronic Response to Treatment: Stable Problem Text: 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-24 2 TID 02/26 - C diff PCR Plan/VTE VTE Prophylaxis Ordered?: Yes Plan Patient was seen and examined by myself and his care was reviewed with the physician graphic design assistant on service VS, I&O, 24H, Fishbone Vital Signs/I&O Vital Signs Date Time Temp Pulse Resp B/P (MAP) Pulse Ox O2 Delivery O2 Flow Rate FiO2 03/07/17 08:39 20 03/07/17 06:00 98.2 107 153/90 (111) 95 Room Air Laboratory Data 24H LABS Laboratory Tests 2 03/06/17 10:36: Immature Granulocyte % (Auto) 0.3H, White Blood Count 8.8, Red Blood Count 4.29L , Hemoglobin 13.0L, Hematocrit 39.4L, Mean Corpuscular Volume 91.8, Mean Corpuscular Hemoglobin 30.3, Mean Corpuscular Hemoglobin Concent 33.0, Red Cell Distribution Width 15.9H, Platelet Count 447, Neutrophils (%) (Auto) 82.4H, Lymphocytes (%) (Auto) 9.5L, Monocytes (%) (Auto) 6.5H, Eosinophils (%) (Auto) 0.8, Basophils (%) (Auto) 0.5, Neutrophils # (Auto) 7.2, Lymphocytes # (Auto) 0.8L, Monocytes # (Auto) 0.6, Eosinophils # (Auto) 0.1, Basophils # (Auto) 0.0, Immature Granulocyte # (Auto) 0.0, Nucleated Red Blood Cells % (auto) 0.0, Anion Gap 8, Glomerular Filtration Rate > 60.0, Blood Urea Nitrogen 12, Creatinine 0.98, Sodium Level 138, Potassium Level 3.9, Chloride Level 102, Carbon Dioxide Level 28, Calcium Level 7.7L, Aspartate Amino Transf (AST/SGOT) 22, Alanine Aminotransferase (ALT/SGPT) 13, Alkaline Phosphatase 284H, Total Bilirubin 0.6, Total Protein 4.2L, Albumin 1.4#L, Magnesium Level 1.6L, Albumin/ Globulin Ratio 0.50L 03/07/17 05:32: Immature Granulocyte % (Auto) 0.3H, White Blood Count 6.7, Red Blood Count 4.30 , Hemoglobin 13.1L, Hematocrit 39.6L, Mean Corpuscular Volume 92.1, Mean Corpuscular Hemoglobin 30.5, Mean Corpuscular Hemoglobin Concent 33.1, Red Cell Distribution Width 15.9H, Platelet Count 444, Neutrophils (%) (Auto) 79.6H, Lymphocytes (%) (Auto) 14.9L, Monocytes (%) (Auto) 4.1, Eosinophils (%) (Auto) 0.6, Basophils (%) (Auto) 0.5, Neutrophils # (Auto) 5.3, Lymphocytes # (Auto) 1.0L, Monocytes # (Auto) 0.3, Eosinophils # (Auto) 0.0, Basophils # (Auto) 0.0, Immature Granulocyte # (Auto) 0.0, Nucleated Red Blood Cells % (auto) 0.0, Anion Gap 6L, Glomerular Filtration Rate > 60.0, Blood Urea Nitrogen 10, Creatinine 1.09, Sodium Level 139, Potassium Level 3.8, Chloride Level 102, Carbon Dioxide Level 31, Calcium Level 8.0L, Aspartate Amino Transf (AST/SGOT) 21, Alanine Aminotransferase (ALT/SGPT) 13, Alkaline Phosphatase 261H, Total Bilirubin 0.7, Total Protein 4.8L, Albumin 1.4L, Magnesium Level 1.4L, Albumin/ Globulin Ratio 0.41L CBC/BMP Laboratory Tests 03/06/17 10:36 Red Blood Count 4.29 L, Mean Corpuscular Volume 91.8, Mean Corpuscular Hemoglobin 30.3, Mean Corpuscular Hemoglobin Concent 33.0, Red Cell Distribution Width 15.9 H, Neutrophils (%) (Auto) 82.4 H, Lymphocytes (%) (Auto ) 9.5 L, Monocytes (%) (Auto) 6.5 H, Eosinophils (%) (Auto) 0.8, Basophils (%) ( Auto) 0.5, Neutrophils # (Auto) 7.2, Lymphocytes # (Auto) 0.8 L, Monocytes # ( Auto) 0.6, Eosinophils # (Auto) 0.1, Basophils # (Auto) 0.0, Calcium Level 7.7 L , Aspartate Amino Transf (AST/SGOT) 22, Alanine Aminotransferase (ALT/SGPT) 13, Alkaline Phosphatase 284 H, Total Bilirubin 0.6, Total Protein 4.2 L, Albumin 1.4 #L 03/07/17 05:32 Red Blood Count 4.30, Mean Corpuscular Volume 92.1, Mean Corpuscular Hemoglobin 30.5, Mean Corpuscular Hemoglobin Concent 33.1, Red Cell Distribution Width 15.9 H, Neutrophils (%) (Auto) 79.6 H, Lymphocytes (%) (Auto) 14.9 L, Monocytes (%) (Auto) 4.1, Eosinophils (%) (Auto) 0.6, Basophils (%) (Auto) 0.5, Neutrophils # (Auto) 5.3, Lymphocytes # (Auto) 1.0 L, Monocytes # (Auto) 0.3, Eosinophils # (Auto) 0.0, Basophils # (Auto) 0.0, Calcium Level 8.0 L, Aspartate Amino Transf (AST/SGOT) 21, Alanine Aminotransferase (ALT/SGPT) 13, Alkaline Phosphatase 261 H, Total Bilirubin 0.7, Total Protein 4.8 L, Albumin 1.4 L Microbiology Microbiology 02/26/17 Clostridium difficile (PCR) - Final, Complete Hallie CarlP Mar 07, 2017 10:30 Flaco Dixon M.D. Mar 07, 2017 16:39
[2017-03-07] MEDS: MAG SULF 1GM/100ML (MAG RUN) 1 GM in APPROPRIATE DILUENT 1 EA IV SCH ×2 (10:34→11:30)
[2017-03-07 14:00] VITALS: BP 102/76
[2017-03-07 16:23] LABS: ANION GAP 6 MEQ/L (8-16); BLOOD UREA NITROGEN 12 MG/DL (7-18); CALCIUM LEVEL 7.5 MG/DL (8.5-10.1); CARBON DIOXIDE LEVEL 31 MEQ/L (21-32); CHLORIDE LEVEL 101 MEQ/L (98-107); GLOMERULAR FILTRATION RATE > 60.0 (>56); GLUCOSE, FASTING 136 MG/DL (70-105); MAGNESIUM LEVEL 1.9 MG/DL (1.8-2.4); POTASSIUM SERUM 4.2 MEQ/L (3.5-5.1); SODIUM LEVEL 138 MEQ/L (136-145)
[2017-03-07] MEDS: MIRTAZAPINE 15 MG TAB PO SCH (21:05)
[2017-03-07] MEDS: CYANOCOBALAMIN 500 MCG TAB PO SCH (21:09)
[2017-03-07 22:00] VITALS: BP 132/74
[2017-03-08] MEDS: oxyCODONE 5MG TAB PO PRN ×4 (01:56→20:51)
[2017-03-08] MEDS: ONDANSETRON 4MG/2ML VIAL (J2405) IV PRN ×3 (02:12→16:39)
[2017-03-08] MEDS: LEVOTHYROXINE 125MCG TABLET (0.125MG) PO SCH (05:30)
[2017-03-08 05:55] LABS: BASO % 0.3 % (0.0-1.0); EOS % 0.2 % (0.0-3.0); IMMATURE GRANULOCYTE % 0.5 % (0-0); LYMPH # 0.6 10^3/uL (1.5-4.5); LYMPH % 6.5 % (24.0-44.0); MEAN CORPUSCULAR HEMOGLOBIN 30.9 pg (27.0-33.0); MEAN CORPUSCULAR HGB CONC 33.2 g/dl (32.0-36.5); MEAN CORPUSCULAR VOLUME 92.8 fl (80.0-96.0); MONO # 0.4 10^3/uL (0.0-0.8); MONO % 4.7 % (0.0-5.0); NEUTROPHILS # 8.2 10^3/uL (1.8-7.7); NEUTROPHILS % 87.8 % (36.0-66.0); PLATELET COUNT, AUTOMATED 421 10^3/uL (150-450); RED CELL DISTRIBUTION WIDTH 15.7 % (11.5-14.5); WHITE BLOOD COUNT 9.4 10^3/uL (4.0-10.0)
[2017-03-08 06:00] VITALS: BP 142/84
[2017-03-08 06:24] LABS: ALBUMIN 1.4 GM/DL (3.2-5.2); ALBUMIN/GLOBULIN RATIO 0.47 (1.00-1.93); ALKALINE PHOSPHATASE 208 U/L (45-117); ALT/SGPT 13 U/L (12-78); ANION GAP 6 MEQ/L (8-16); AST/SGOT 17 U/L (7-37); BILIRUBIN,TOTAL 0.8 MG/DL (0.2-1.0); BLOOD UREA NITROGEN 11 MG/DL (7-18); CALCIUM LEVEL 7.7 MG/DL (8.5-10.1); CARBON DIOXIDE LEVEL 31 MEQ/L (21-32); CHLORIDE LEVEL 101 MEQ/L (98-107); CREATININE FOR GFR 1.01 MG/DL (0.70-1.30); GLOMERULAR FILTRATION RATE > 60.0 (>56); GLUCOSE, FASTING 73 MG/DL (70-105); MAGNESIUM LEVEL 1.7 MG/DL (1.8-2.4); POTASSIUM SERUM 3.3 MEQ/L (3.5-5.1); SODIUM LEVEL 138 MEQ/L (136-145); TOTAL PROTEIN 4.4 GM/DL (6.4-8.2)
[2017-03-08] MEDS: CREON-24 CAPSULE PO SCH ×3 (08:51→20:50)
[2017-03-08] MEDS: MIDODRINE 5 MG TAB PO SCH ×3 (08:51→20:49)
[2017-03-08] MEDS: DRONABINOL 2.5 MG CAP (MARINOL) PO SCH ×2 (08:51→20:49)
[2017-03-08] MEDS: MULTIVITAMINS/MINERALS THERAP 1 TAB PO SCH (08:51)
[2017-03-08] MEDS: OMEPRAZOLE 20 MG CAP PO SCH ×2 (08:52→20:50)
[2017-03-08] MEDS: VITAMIN D 1,000 INTERNATIONAL UNITS TABLET PO SCH (08:52)
[2017-03-08] MEDS: MORPHINE 30 MG SA TAB PO SCH ×3 (08:52→20:49)
[2017-03-08] MEDS: ASPIRIN 81 MG ENTERIC TAB PO SCH (08:52)
[2017-03-08] MEDS: LACTOBACILLUS ACIDOPHILUS CAP (BACID) PO SCH ×3 (08:52→17:06)
[2017-03-08 10:00] VITALS: BP 141/101
[2017-03-08 11:00] VITALS: BP 136/70
[2017-03-08] MEDS ORDERED: FUROSEMIDE 40 MG TAB PO ONE (13:00)
[2017-03-08] MEDS: POTASSIUM CHLORIDE 10 MEQ SR TABLET PO SCH ×2 (13:16→20:50)
[2017-03-08 14:00] VITALS: BP 127/81
--- NOTE | 2017-03-08 14:34 | IPNPDOC ---
Subjective Date Seen The patient was seen on 03/08/17. Subjective Chief Complaint/HPI The patient is a 57-year-old male admitted with a reason for visit of Amyloid Disease Dehydration. Constitutional: Denies: Chills, Fever Eyes: Denies: Pain ENT: Denies: Head Aches Skin: Denies: Rash Pulmonary: Denies: Dyspnea, Cough Cardiovascular: Denies: Chest Pain Gastrointestinal: Reports: Nausea, Abdominal Pain (generalized improved), Denies: Vomiting Genitourinary: Denies: Dysuria Objective Physical Examination General Exam: Positive: Alert, No Acute Distress ENT Exam: Positive: Mucous membr. moist/pink Chest Exam: Positive: Clear to auscultation, Normal air movement Heart Exam: Positive: Rate Normal, Normal S1, Normal S2 Abdomen Exam: Positive: Normal bowel sounds, Soft, Tenderness (diffusely tender to very mild palpation) Extremity Exam: Positive: Edema (2-3 + boggy edema to legs up to mid thigh) Skin Exam: Positive: Other skin issue (puffy, edema in hands, legs, feet.) Neuro Exam: Positive: Normal Speech Psych Exam: Positive: Mental status NL Assessment /Plan Problems (1) Severe protein-calorie malnutrition Status: Chronic Problem Text: c secondary third-spacing 03/08 I/O 03/07 2210/1300; therefore, fur 40 po, K 3.3; therefore, + K 20 BID and zachariah 12.5 QD 03/05-: fur 20 IV with 50cc 25% albumin Contingency: PPN/TPN 03/08 1.4 03/05 albumin 1.0! 03/05 BNP 9059! c h/o cardiac amyloidosis-check TTE (2) Abdominal pain Status: Chronic Problem Text: chronic generalized, stable favor 2 bowel wall edema 03/03 AXR normal AFL, no obvious obstruction (3) Amyloidosis Status: Chronic Response to Treatment: Stable Problem Text: abdominal pain, inanition and low albumin are caused by this problem. results in sufficient GI distress to make po intake impossible, leading to diarrhea and worsening of low albumin due to nutritional impairment (4) Orthostatic hypotension Status: Chronic Problem Specific Plan: Monitor Clinically Problem Text: Pressures are stable (5) Anemia, chronic disease Status: Chronic Problem Specific Plan: Monitor Clinically, Repeat Labs Problem Text: ACD stable hgb at baseline 12s (6) Physical deconditioning Status: Chronic Response to Treatment: Stable Problem Text: 03/04 refuses to participate 03/03 PT consulted (7) Malabsorption Status: Chronic Response to Treatment: Stable Problem Text: 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-24 2 TID 02/26 - C diff PCR Plan/VTE VTE Prophylaxis Ordered?: Yes VS, I&O, 24H, Fishbone Vital Signs/I&O Vital Signs Date Time Temp Pulse Resp B/P (MAP) Pulse Ox O2 Delivery O2 Flow Rate FiO2 03/08/17 13:24 20 03/08/17 11:00 136/70 (92) 03/08/17 10:00 98.2 96 92 Room Air I&O- Last 24 Hours up to 6 AM 03/09/17 06:00 Intake Total 240 ml Output Total 400 ml Balance -160 ml Laboratory Data 24H LABS Laboratory Tests 2 03/07/17 15:52: Anion Gap 6L, Glomerular Filtration Rate > 60.0, Blood Urea Nitrogen 12, Creatinine 1.20, Sodium Level 138, Potassium Level 4.2, Chloride Level 101, Carbon Dioxide Level 31, Calcium Level 7.5L, Magnesium Level 1.9 03/08/17 05:28: Anion Gap 6L, Glomerular Filtration Rate > 60.0, Blood Urea Nitrogen 11, Creatinine 1.01, Sodium Level 138, Potassium Level 3.3#L, Chloride Level 101, Carbon Dioxide Level 31, Calcium Level 7.7L, Magnesium Level 1.7L, Immature Granulocyte % (Auto) 0.5H, White Blood Count 9.4, Red Blood Count 3.76L, Hemoglobin 11.6L, Hematocrit 34.9L, Mean Corpuscular Volume 92.8, Mean Corpuscular Hemoglobin 30.9, Mean Corpuscular Hemoglobin Concent 33.2, Red Cell Distribution Width 15.7H, Platelet Count 421, Neutrophils (%) (Auto) 87.8H, Lymphocytes (%) (Auto) 6.5L, Monocytes (%) (Auto) 4.7, Eosinophils (%) (Auto) 0.2, Basophils (%) (Auto) 0.3, Neutrophils # (Auto) 8.2H, Lymphocytes # (Auto) 0.6L, Monocytes # (Auto) 0.4, Eosinophils # (Auto) 0.0, Basophils # (Auto) 0.0, Immature Granulocyte # (Auto) 0.1H, Nucleated Red Blood Cells % (auto) 0.0, Aspartate Amino Transf (AST/SGOT) 17, Alanine Aminotransferase (ALT/SGPT) 13, Alkaline Phosphatase 208H, Total Bilirubin 0.8, Total Protein 4.4L, Albumin 1.4L , Albumin/Globulin Ratio 0.47L CBC/BMP Laboratory Tests 03/07/17 15:52 Calcium Level 7.5 L 03/08/17 05:28 Calcium Level 7.7 L, Red Blood Count 3.76 L, Mean Corpuscular Volume 92.8, Mean Corpuscular Hemoglobin 30.9, Mean Corpuscular Hemoglobin Concent 33.2, Red Cell Distribution Width 15.7 H, Neutrophils (%) (Auto) 87.8 H, Lymphocytes (%) (Auto ) 6.5 L, Monocytes (%) (Auto) 4.7, Eosinophils (%) (Auto) 0.2, Basophils (%) ( Auto) 0.3, Neutrophils # (Auto) 8.2 H, Lymphocytes # (Auto) 0.6 L, Monocytes # ( Auto) 0.4, Eosinophils # (Auto) 0.0, Basophils # (Auto) 0.0, Aspartate Amino Transf (AST/SGOT) 17, Alanine Aminotransferase (ALT/SGPT) 13, Alkaline Phosphatase 208 H, Total Bilirubin 0.8, Total Protein 4.4 L, Albumin 1.4 L Microbiology Microbiology 02/26/17 Clostridium difficile (PCR) - Final, Complete Nakul Duffy M.D. Mar 08, 2017 14:34
[2017-03-08 18:00] VITALS: BP_SYST 138; BP_SYST 142; BP_DIAS 82; BP_DIAS 94
[2017-03-08] MEDS: PROMETHAZINE INJ 25 MG/ML VIAL (J2550) IV PRN (20:49)
[2017-03-08] MEDS: CYANOCOBALAMIN 500 MCG TAB PO SCH (20:49)
[2017-03-08] MEDS: MIRTAZAPINE 15 MG TAB PO SCH (21:37)
[2017-03-08 22:00] VITALS: BP 132/90
[2017-03-09 02:00] VITALS: BP 142/90
[2017-03-09] MEDS: oxyCODONE 5MG TAB PO PRN ×5 (03:15→21:31)
[2017-03-09 06:00] VITALS: BP 124/76
[2017-03-09 06:05] LABS: BASO % 0.3 % (0.0-1.0); EOS # 0.1 10^3/uL (0.0-0.50); EOS % 0.7 % (0.0-3.0); IMMATURE GRANULOCYTE % 0.2 % (0-0); LYMPH # 1.2 10^3/uL (1.5-4.5); LYMPH % 12.8 % (24.0-44.0); MEAN CORPUSCULAR HEMOGLOBIN 30.6 pg (27.0-33.0); MEAN CORPUSCULAR HGB CONC 33.2 g/dl (32.0-36.5); MEAN CORPUSCULAR VOLUME 92.2 fl (80.0-96.0); MONO # 0.6 10^3/uL (0.0-0.8); MONO % 6.7 % (0.0-5.0); NEUTROPHILS # 7.1 10^3/uL (1.8-7.7); NEUTROPHILS % 79.3 % (36.0-66.0); PLATELET COUNT, AUTOMATED 413 10^3/uL (150-450); RED CELL DISTRIBUTION WIDTH 15.5 % (11.5-14.5)
[2017-03-09 06:32] LABS: ALBUMIN 1.2 GM/DL (3.2-5.2); ALBUMIN/GLOBULIN RATIO 0.52 (1.00-1.93); ALKALINE PHOSPHATASE 193 U/L (45-117); ALT/SGPT 12 U/L (12-78); ANION GAP 6 MEQ/L (8-16); AST/SGOT 14 U/L (7-37); BILIRUBIN,TOTAL 0.7 MG/DL (0.2-1.0); BLOOD UREA NITROGEN 10 MG/DL (7-18); CALCIUM LEVEL 7.5 MG/DL (8.5-10.1); CARBON DIOXIDE LEVEL 33 MEQ/L (21-32); CHLORIDE LEVEL 100 MEQ/L (98-107); CREATININE FOR GFR 0.94 MG/DL (0.70-1.30); GLOMERULAR FILTRATION RATE > 60.0 (>56); GLUCOSE, FASTING 58 MG/DL (70-105); MAGNESIUM LEVEL 1.6 MG/DL (1.8-2.4); POTASSIUM SERUM 3.9 MEQ/L (3.5-5.1); SODIUM LEVEL 139 MEQ/L (136-145); TOTAL PROTEIN 3.5 GM/DL (6.4-8.2)
[2017-03-09] MEDS: LEVOTHYROXINE 125MCG TABLET (0.125MG) PO SCH (06:47)
[2017-03-09] MEDS: ONDANSETRON 4MG/2ML VIAL (J2405) IV PRN ×2 (06:48→16:02)
[2017-03-09] MEDS: VITAMIN D 1,000 INTERNATIONAL UNITS TABLET PO SCH (08:15)
[2017-03-09] MEDS: SPIRONOLACTONE 12.5MG PER 1/2 TABLET PO SCH (08:15)
[2017-03-09] MEDS: CREON-24 CAPSULE PO SCH ×3 (08:15→20:50)
[2017-03-09] MEDS: LACTOBACILLUS ACIDOPHILUS CAP (BACID) PO SCH ×3 (08:15→17:17)
[2017-03-09] MEDS: DRONABINOL 2.5 MG CAP (MARINOL) PO SCH ×2 (08:16→20:52)
[2017-03-09] MEDS: POTASSIUM CHLORIDE 10 MEQ SR TABLET PO SCH ×2 (08:16→20:51)
[2017-03-09] MEDS: OMEPRAZOLE 20 MG CAP PO SCH ×2 (08:16→20:52)
[2017-03-09] MEDS: ASPIRIN 81 MG ENTERIC TAB PO SCH (08:16)
[2017-03-09] MEDS: MULTIVITAMINS/MINERALS THERAP 1 TAB PO SCH (08:16)
[2017-03-09] MEDS: MORPHINE 30 MG SA TAB PO SCH ×3 (08:17→20:53)
[2017-03-09] MEDS: MIDODRINE 5 MG TAB PO SCH ×3 (08:19→20:53)
[2017-03-09 10:00] VITALS: BP 148/94
[2017-03-09] MEDS ORDERED: MAG SULF 1GM/100ML (MAG RUN) 1 GM in APPROPRIATE DILUENT 1 EA IV ONE (13:30)
--- NOTE | 2017-03-09 13:44 | IPNPDOC ---
Subjective Date Seen The patient was seen on 03/09/17. Subjective Chief Complaint/HPI The patient is a 57-year-old male admitted with a reason for visit of Amyloid Disease Dehydration. Constitutional: Denies: Chills, Fever Pulmonary: Denies: Dyspnea, Cough Cardiovascular: Reports: Edema, Denies: Chest Pain, Palpitations Gastrointestinal: Reports: Diarrhea, Denies: Nausea, Vomiting, Abdominal Pain Genitourinary: Denies: Dysuria, Frequency Objective Physical Examination General Exam: Positive: Alert, No Acute Distress ENT Exam: Positive: Mucous membr. moist/pink Chest Exam: Positive: Clear to auscultation, Normal air movement Heart Exam: Positive: Rate Normal, Normal S1, Normal S2 Abdomen Exam: Positive: BS Hyperactive, Soft (anasarca present), Negative: Tenderness (non-tender to palpation, abdominal pain improved) Extremity Exam: Positive: Edema (2-3 + boggy edema to legs up to mid thigh) Skin Exam: Positive: Other skin issue (puffy, edema in hands, legs, feet.) Neuro Exam: Positive: Normal Speech Psych Exam: Positive: Mental status NL Assessment /Plan Problems (1) Severe protein-calorie malnutrition Status: Chronic Problem Text: 03/09: Albumin today is 1.2, 50 cc of albumin 25% ordered. Still has 3rd spacing, with pitting edema up to thighs and anasarca. c secondary third-spacing 03/08 I/O 03/07 2210/1300; therefore, fur 40 po, K 3.3; therefore, + K 20 BID and zachariah 12.5 QD 03/05-: fur 20 IV with 50cc 25% albumin Contingency: PPN/TPN 03/08 1.4 03/05 albumin 1.0! 03/05 BNP 9059! c h/o cardiac amyloidosis-check TTE (2) Amyloidosis Status: Chronic Response to Treatment: Stable Problem Text: 03/09: echo is pending, pro BNP 9788, may consider digoxin if he has systolic failure. abdominal pain, inanition and low albumin are caused by this problem. results in sufficient GI distress to make po intake impossible, leading to diarrhea and worsening of low albumin due to nutritional impairment (3) Abdominal pain Status: Chronic Problem Text: 03/09: Patient states abdominal pain is better today, but he has had three loose bowel movements today. He has bowel movements right after he eats, and there is concern that he is not absorbing anything. I have increase his Creon to 3x24,000 TID, added Imodium PRN as he states that this helps at home, and added cholestyramine. chronic generalized, stable favor 2 bowel wall edema 03/03 AXR normal AFL, no obvious obstruction (4) Malabsorption Status: Chronic Response to Treatment: Stable Problem Text: 03/09: Patient complaining of 3 loose bowel movements today, one right after he ate. I have increased his Creon to 3x24,000 TID as there is concern that he is not absorbing anything. His albumin today is 1.2, I have given him 50 cc of 25% albumin, as well as added cholestyramine and imodium as this helps at home. CDiff PCR ordered due to history of CDiff in past, but my suspicion for this is low. 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-24 2 TID 02/26 - C diff PCR (5) Anemia, chronic disease Status: Chronic Problem Specific Plan: Monitor Clinically, Repeat Labs Problem Text: ACD stable hgb at baseline 12s (6) Orthostatic hypotension Status: Chronic Problem Specific Plan: Monitor Clinically Problem Text: Pressures are stable (7) Physical deconditioning Status: Chronic Response to Treatment: Stable Problem Text: 03/04 refuses to participate 03/03 PT consulted Plan/VTE VTE Prophylaxis Ordered?: Yes VS, I&O, 24H, Fishbone Vital Signs/I&O Vital Signs Date Time Temp Pulse Resp B/P (MAP) Pulse Ox O2 Delivery O2 Flow Rate FiO2 03/09/17 12:48 18 03/09/17 10:00 99.3 98 148/94 (112) 93 Room Air I&O- Last 24 Hours up to 6 AM 03/10/17 06:00 Intake Total 240 ml Output Total 2000 ml Balance -1760 ml Laboratory Data 24H LABS Laboratory Tests 2 03/09/17 05:22: Immature Granulocyte % (Auto) 0.2H, White Blood Count 9.0, Red Blood Count 3.46L , Hemoglobin 10.6L, Hematocrit 31.9L, Mean Corpuscular Volume 92.2, Mean Corpuscular Hemoglobin 30.6, Mean Corpuscular Hemoglobin Concent 33.2, Red Cell Distribution Width 15.5H, Platelet Count 413, Neutrophils (%) (Auto) 79.3H, Lymphocytes (%) (Auto) 12.8L, Monocytes (%) (Auto) 6.7H, Eosinophils (%) (Auto) 0.7, Basophils (%) (Auto) 0.3, Neutrophils # (Auto) 7.1, Lymphocytes # (Auto) 1.2L, Monocytes # (Auto) 0.6, Eosinophils # (Auto) 0.1, Basophils # (Auto) 0.0, Immature Granulocyte # (Auto) 0.0, Nucleated Red Blood Cells % (auto) 0.0, Anion Gap 6L, Glomerular Filtration Rate > 60.0, Blood Urea Nitrogen 10, Creatinine 0.94, Sodium Level 139, Potassium Level 3.9, Chloride Level 100, Carbon Dioxide Level 33H, Calcium Level 7.5L, Aspartate Amino Transf (AST/SGOT) 14, Alanine Aminotransferase (ALT/SGPT) 12, Alkaline Phosphatase 193H, Total Bilirubin 0.7, Total Protein 3.5#L, Albumin 1.2L, Magnesium Level 1.6L, NT-Pro-B -Type Natriuretic Peptide 9788H, Albumin/Globulin Ratio 0.52L CBC/BMP Laboratory Tests 03/09/17 05:22 Red Blood Count 3.46 L, Mean Corpuscular Volume 92.2, Mean Corpuscular Hemoglobin 30.6, Mean Corpuscular Hemoglobin Concent 33.2, Red Cell Distribution Width 15.5 H, Neutrophils (%) (Auto) 79.3 H, Lymphocytes (%) (Auto ) 12.8 L, Monocytes (%) (Auto) 6.7 H, Eosinophils (%) (Auto) 0.7, Basophils (%) (Auto) 0.3, Neutrophils # (Auto) 7.1, Lymphocytes # (Auto) 1.2 L, Monocytes # ( Auto) 0.6, Eosinophils # (Auto) 0.1, Basophils # (Auto) 0.0, Calcium Level 7.5 L , Aspartate Amino Transf (AST/SGOT) 14, Alanine Aminotransferase (ALT/SGPT) 12, Alkaline Phosphatase 193 H, Total Bilirubin 0.7, Total Protein 3.5 #L, Albumin 1.2 L GME ATTESTATION GME ATTESTATION My faculty preceptor for this patient encounter was physically present during the encounter and was fully available. All aspects of the patient interview, examination, medical decision making process, and medical care plan development were reviewed and approved by the faculty preceptor. The faculty preceptor is aware and concurs with the plan as stated in the body of this note and will attest to such by his/her cosignature. EDNA BUSTAMANTE DO Mar 09, 2017 13:44
[2017-03-09] MEDS ORDERED: LOPERAMIDE 2 MG CAP PO PRN (13:45)
[2017-03-09 14:00] VITALS: BP 150/102
[2017-03-09] MEDS: CHOLESTYRAMINE 4 GM PWD PKT PO SCH ×2 (14:40→20:54)
[2017-03-09 18:00] VITALS: BP 160/110
[2017-03-09] MEDS: CYANOCOBALAMIN 500 MCG TAB PO SCH (20:51)
[2017-03-09] MEDS: MIRTAZAPINE 15 MG TAB PO SCH (21:30)
[2017-03-09 22:00] VITALS: BP 160/110
[2017-03-10] MEDS: ONDANSETRON 4MG/2ML VIAL (J2405) IV PRN ×2 (01:02→10:11)
[2017-03-10] MEDS: oxyCODONE 5MG TAB PO PRN ×3 (01:34→21:10)
[2017-03-10 02:00] VITALS: BP 128/91
[2017-03-10 06:00] VITALS: BP 167/109
[2017-03-10] MEDS: LEVOTHYROXINE 125MCG TABLET (0.125MG) PO SCH (06:02)
[2017-03-10 06:04] LABS: BASO % 0.4 % (0.0-1.0); EOS # 0.1 10^3/uL (0.0-0.50); IMMATURE GRANULOCYTE % 0.3 % (0-0); LYMPH # 1.4 10^3/uL (1.5-4.5); LYMPH % 18.2 % (24.0-44.0); MEAN CORPUSCULAR HEMOGLOBIN 29.9 pg (27.0-33.0); MEAN CORPUSCULAR HGB CONC 32.8 g/dl (32.0-36.5); MEAN CORPUSCULAR VOLUME 90.9 fl (80.0-96.0); MONO # 0.6 10^3/uL (0.0-0.8); NEUTROPHILS # 5.6 10^3/uL (1.8-7.7); NEUTROPHILS % 72.1 % (36.0-66.0); PLATELET COUNT, AUTOMATED 443 10^3/uL (150-450); RED CELL DISTRIBUTION WIDTH 15.5 % (11.5-14.5); WHITE BLOOD COUNT 7.7 10^3/uL (4.0-10.0)
[2017-03-10 06:14] LABS: ALBUMIN 1.3 GM/DL (3.2-5.2); ALBUMIN/GLOBULIN RATIO 0.42 (1.00-1.93); ALKALINE PHOSPHATASE 192 U/L (45-117); ALT/SGPT 13 U/L (12-78); ANION GAP 6 MEQ/L (8-16); AST/SGOT 16 U/L (7-37); BILIRUBIN,TOTAL 0.6 MG/DL (0.2-1.0); BLOOD UREA NITROGEN 9 MG/DL (7-18); CALCIUM LEVEL 7.7 MG/DL (8.5-10.1); CARBON DIOXIDE LEVEL 31 MEQ/L (21-32); CHLORIDE LEVEL 102 MEQ/L (98-107); CREATININE FOR GFR 0.97 MG/DL (0.70-1.30); GLOMERULAR FILTRATION RATE > 60.0 (>56); GLUCOSE, FASTING 66 MG/DL (70-105); MAGNESIUM LEVEL 1.8 MG/DL (1.8-2.4); POTASSIUM SERUM 3.9 MEQ/L (3.5-5.1); SODIUM LEVEL 139 MEQ/L (136-145); TOTAL PROTEIN 4.4 GM/DL (6.4-8.2)
[2017-03-10] MEDS: DRONABINOL 2.5 MG CAP (MARINOL) PO SCH ×2 (08:18→21:08)
[2017-03-10] MEDS: POTASSIUM CHLORIDE 10 MEQ SR TABLET PO SCH ×2 (08:19→21:09)
[2017-03-10] MEDS: VITAMIN D 1,000 INTERNATIONAL UNITS TABLET PO SCH (08:19)
[2017-03-10] MEDS: MORPHINE 30 MG SA TAB PO SCH ×3 (08:21→21:10)
[2017-03-10] MEDS: CREON-24 CAPSULE PO SCH ×3 (08:21→21:09)
[2017-03-10] MEDS: MIDODRINE 5 MG TAB PO SCH ×3 (08:21→21:00)
[2017-03-10] MEDS: ASPIRIN 81 MG ENTERIC TAB PO SCH (08:21)
[2017-03-10] MEDS: LACTOBACILLUS ACIDOPHILUS CAP (BACID) PO SCH ×3 (08:22→18:30)
[2017-03-10] MEDS: MULTIVITAMINS/MINERALS THERAP 1 TAB PO SCH (08:22)
[2017-03-10] MEDS: SPIRONOLACTONE 12.5MG PER 1/2 TABLET PO SCH (08:22)
[2017-03-10] MEDS: CHOLESTYRAMINE 4 GM PWD PKT PO SCH ×2 (08:23→21:08)
[2017-03-10] MEDS: OMEPRAZOLE 20 MG CAP PO SCH ×2 (08:23→21:09)
[2017-03-10 10:00] VITALS: BP 121/87
--- NOTE | 2017-03-10 10:59 | IPNPDOC ---
Subjective Date Seen The patient was seen on 03/10/17. Subjective Chief Complaint/HPI The patient is a 57-year-old male admitted with a reason for visit of Amyloid Disease Dehydration. Events since last encounter Pt this morning is feeling better than he has in some time. He states that the swelling in his legs and back/abdomen is much better. He does cont to have intermittent episodes of nausea which require IV Zofran which provides him with some relief. General: Reports: Fatigue Constitutional: Denies: Chills, Fever Pulmonary: Reports: Cough, Denies: Dyspnea Cardiovascular: Denies: Chest Pain, Palpitations Gastrointestinal: Reports: Diarrhea (03/09 AM with 4 episodes, none since), Denies: Nausea, Vomiting Neurological: Reports: Weakness (improving) Psych: Reports: Mood Normal Objective Physical Examination General Exam: Positive: Alert, No Acute Distress ENT Exam: Positive: Mucous membr. moist/pink Chest Exam: Positive: Clear to auscultation, Normal air movement Heart Exam: Positive: Rate Normal, Normal S1, Normal S2 Abdomen Exam: Positive: Normal bowel sounds, Soft (anasarca present), Negative: Tenderness (non-tender to palpation, abdominal pain improved) Extremity Exam: Positive: Edema (1-2 + boggy edema to legs up to mid thigh) Neuro Exam: Positive: Normal Speech Psych Exam: Positive: Mental status NL Assessment /Plan Problems (1) Severe protein-calorie malnutrition Status: Chronic Problem Text: 03/10 Alb 1.3, rec Alb x 4 bottles in the last 4 days. He has had improvement of his fluid status and anasarca with administration of albumin. 03/09: Albumin today is 1.2, 50 cc of albumin 25% ordered. Still has 3rd spacing , with pitting edema up to thighs and anasarca. c secondary third-spacing 03/08 I/O 03/07 2210/1300; therefore, fur 40 po, K 3.3; therefore, + K 20 BID and zachariah 12.5 QD 03/05-: fur 20 IV with 50cc 25% albumin Contingency: PPN/TPN 03/08 1.4 03/05 albumin 1.0! 03/05 BNP 9059! c h/o cardiac amyloidosis-check TTE (2) Amyloidosis Status: Chronic Response to Treatment: Stable Problem Text: 03/10 - ECHO pending- anticipate this be done today. 03/09: echo is pending, pro BNP 9788, may consider digoxin if he has systolic failure. abdominal pain, inanition and low albumin are caused by this problem. results in sufficient GI distress to make po intake impossible, leading to diarrhea and worsening of low albumin due to nutritional impairment (3) Abdominal pain Status: Chronic Problem Text: 03/09: Patient states abdominal pain is better today, but he has had three loose bowel movements today. He has bowel movements right after he eats, and there is concern that he is not absorbing anything. I have increase his Creon to 3x24,000 TID, added Imodium PRN as he states that this helps at home, and added cholestyramine. chronic generalized, stable favor 2 bowel wall edema 03/03 AXR normal AFL, no obvious obstruction (4) Malabsorption Status: Chronic Response to Treatment: Stable Problem Text: 03/09: Patient complaining of 3 loose bowel movements today, one right after he ate. I have increased his Creon to 3x24,000 TID as there is concern that he is not absorbing anything. His albumin today is 1.2, I have given him 50 cc of 25% albumin, as well as added cholestyramine and imodium as this helps at home. CDiff PCR ordered due to history of CDiff in past, but my suspicion for this is low. 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-24 2 TID 02/26 - C diff PCR (5) Anemia, chronic disease Status: Chronic Problem Specific Plan: Monitor Clinically, Repeat Labs Problem Text: ACD stable hgb at baseline 12s (6) Orthostatic hypotension Status: Chronic Problem Specific Plan: Monitor Clinically Problem Text: Pressures are stable (7) Physical deconditioning Status: Chronic Response to Treatment: Stable Problem Text: 03/04 refuses to participate 03/03 PT consulted Plan/VTE VTE Prophylaxis Ordered?: Yes VS, I&O, 24H, Fishbone Vital Signs/I&O Vital Signs Date Time Temp Pulse Resp B/P (MAP) Pulse Ox O2 Delivery O2 Flow Rate FiO2 03/10/17 08:21 18 03/10/17 06:00 98.9 101 167/109 (128) 94 Room Air I&O- Last 24 Hours up to 6 AM 03/11/17 06:00 Output Total 500 ml Balance -500 ml Laboratory Data 24H LABS Laboratory Tests 2 03/10/17 05:37: Immature Granulocyte % (Auto) 0.3H, White Blood Count 7.7, Red Blood Count 3.75L , Hemoglobin 11.2L, Hematocrit 34.1L, Mean Corpuscular Volume 90.9, Mean Corpuscular Hemoglobin 29.9, Mean Corpuscular Hemoglobin Concent 32.8, Red Cell Distribution Width 15.5H, Platelet Count 443, Neutrophils (%) (Auto) 72.1H, Lymphocytes (%) (Auto) 18.2L, Monocytes (%) (Auto) 8.0H, Eosinophils (%) (Auto) 1.0, Basophils (%) (Auto) 0.4, Neutrophils # (Auto) 5.6, Lymphocytes # (Auto) 1.4L, Monocytes # (Auto) 0.6, Eosinophils # (Auto) 0.1, Basophils # (Auto) 0.0, Immature Granulocyte # (Auto) 0.0, Nucleated Red Blood Cells % (auto) 0.0, Anion Gap 6L, Glomerular Filtration Rate > 60.0, Blood Urea Nitrogen 9, Creatinine 0.97, Sodium Level 139, Potassium Level 3.9, Chloride Level 102, Carbon Dioxide Level 31, Calcium Level 7.7L, Aspartate Amino Transf (AST/SGOT) 16, Alanine Aminotransferase (ALT/SGPT) 13, Alkaline Phosphatase 192H, Total Bilirubin 0.6, Total Protein 4.4#L, Albumin 1.3L, Magnesium Level 1.8, Albumin/ Globulin Ratio 0.42L 03/10/17 08:34: Bedside Glucose (Misc Panel) 78 CBC/BMP Laboratory Tests 03/10/17 05:37 Red Blood Count 3.75 L, Mean Corpuscular Volume 90.9, Mean Corpuscular Hemoglobin 29.9, Mean Corpuscular Hemoglobin Concent 32.8, Red Cell Distribution Width 15.5 H, Neutrophils (%) (Auto) 72.1 H, Lymphocytes (%) (Auto ) 18.2 L, Monocytes (%) (Auto) 8.0 H, Eosinophils (%) (Auto) 1.0, Basophils (%) (Auto) 0.4, Neutrophils # (Auto) 5.6, Lymphocytes # (Auto) 1.4 L, Monocytes # ( Auto) 0.6, Eosinophils # (Auto) 0.1, Basophils # (Auto) 0.0, Calcium Level 7.7 L , Aspartate Amino Transf (AST/SGOT) 16, Alanine Aminotransferase (ALT/SGPT) 13, Alkaline Phosphatase 192 H, Total Bilirubin 0.6, Total Protein 4.4 #L, Albumin 1.3 L Microbiology Microbiology 03/09/17 Clostridium difficile (PCR) - Final, Complete DALJIT DAY PA-C Mar 10, 2017 10:59
[2017-03-10] MEDS: PROMETHAZINE INJ 25 MG/ML VIAL (J2550) IV PRN ×2 (12:48→20:46)
[2017-03-10 14:00] VITALS: BP 121/85
[2017-03-10] MEDS: ONDANSETRON 4 MG TAB (S0181) PO PRN (16:12)
[2017-03-10 18:00] VITALS: BP 145/90
[2017-03-10] MEDS: CYANOCOBALAMIN 500 MCG TAB PO SCH (21:08)
[2017-03-10] MEDS: MIRTAZAPINE 15 MG TAB PO SCH (21:12)
[2017-03-10 22:00] VITALS: BP 138/82
--- NOTE | 2017-03-10 22:04 | ECHO ---
DATE OF PROCEDURE: 03/10/2016 REFERRING PHYSICIAN: Nakul Duffy MD INDICATION: Congestive heart failure. HEIGHT: 173 cm WEIGHT: 67 kg DIMENSIONS: IVS: 2.4 LV: 2.8 LVPW: 2.4 LA: 3.5 Aorta: 3.3 FINDINGS: The study is of good technical quality. Left ventricle is of relatively small size. There is severe global hypertrophy involving both the right and left ventricle. Both atria are also at least mildly enlarged. There is distinct bright appearance to the myocardium suggestive of infiltrative process like amyloidosis or hemochromatosis. Estimated left ventricular ejection fraction (LVEF) is around 60%. I do not appreciate any segmental wall motion abnormality. Aortic, mitral, tricuspid and pulmonic valves all appear relatively normal. There is approximately moderate circumferential pericardial effusion without sign of collapse of any of the four cardiac chambers. Inferior vena cava is small in diameter suggestive of low central venous pressure. Left pleural effusion is seen. Aortic root appears normal. Aortic arch appears normal. Abdominal aorta was not well seen. Doppler interrogation of aortic valve reveals no significant stenosis or insufficiency. There is trace mitral insufficiency and trace tricuspid insufficiency. Quality of tricuspid regurgitation (TR) jet was not sufficient to adequately estimate pulmonary artery pressure. Pulmonic valve is functionally competent as well. Mitral inflow pattern and tissue Doppler imaging of mitral annulus reveals likely grade 2 diastolic dysfunction. E flow mitral velocity is 89, A wave is 50 cm/s, E prime septal 5.6 and E prime lateral 7.7 cm/s. CONCLUSIONS: 1. Study is of good technical quality. 2. Normal or small left ventricle (LV) size with severe left ventricular hypertrophy and bright appearance of the myocardium suggestive of infiltrative process (amyloidosis, hemochromatosis). Grade 2 diastolic dysfunction. 3. Hypertrophic right ventricle with preserved function. 4. No hemodynamically significant valvular disease. 5. Moderate circumferential pericardial effusion without signs of compression. 6. Likely normal or low central venous pressure. 7. Left pleural effusion. COMMENTS: Subacute bacterial endocarditis (SBE) prophylaxis is not recommended. If not already known then infiltrative cardiomyopathy should definitely be considered in differential diagnosis. Presence of pericardial effusion is typically a harbinger of poor prognosis.
[2017-03-11] MEDS: oxyCODONE 5MG TAB PO PRN ×3 (01:18→11:42)
[2017-03-11 02:00] VITALS: BP 116/82
[2017-03-11] MEDS: LEVOTHYROXINE 125MCG TABLET (0.125MG) PO SCH (05:34)
[2017-03-11 06:00] VITALS: BP 160/90
[2017-03-11 06:37] LABS: BASO % 0.6 % (0.0-1.0); EOS # 0.1 10^3/uL (0.0-0.50); EOS % 1.3 % (0.0-3.0); IMMATURE GRANULOCYTE % 0.5 % (0-0); LYMPH # 1.2 10^3/uL (1.5-4.5); LYMPH % 18.8 % (24.0-44.0); MEAN CORPUSCULAR HEMOGLOBIN 30.5 pg (27.0-33.0); MEAN CORPUSCULAR HGB CONC 32.9 g/dl (32.0-36.5); MEAN CORPUSCULAR VOLUME 92.7 fl (80.0-96.0); MONO # 0.5 10^3/uL (0.0-0.8); MONO % 8.3 % (0.0-5.0); NEUTROPHILS # 4.5 10^3/uL (1.8-7.7); NEUTROPHILS % 70.5 % (36.0-66.0); PLATELET COUNT, AUTOMATED 445 10^3/uL (150-450); RED CELL DISTRIBUTION WIDTH 15.6 % (11.5-14.5); WHITE BLOOD COUNT 6.4 10^3/uL (4.0-10.0)
[2017-03-11 06:56] LABS: ALKALINE PHOSPHATASE 194 U/L (45-117); ALT/SGPT 13 U/L (12-78); ANION GAP 6 MEQ/L (8-16); AST/SGOT 18 U/L (7-37); BLOOD UREA NITROGEN 8 MG/DL (7-18); CARBON DIOXIDE LEVEL 30 MEQ/L (21-32); CHLORIDE LEVEL 101 MEQ/L (98-107); CREATININE FOR GFR 1.14 MG/DL (0.70-1.30); GLOMERULAR FILTRATION RATE > 60.0 (>56); GLUCOSE, FASTING 63 MG/DL (70-105); POTASSIUM SERUM 4.1 MEQ/L (3.5-5.1); SODIUM LEVEL 137 MEQ/L (136-145)
[2017-03-11 06:57] LABS: ALBUMIN 1.2 GM/DL (3.2-5.2); ALBUMIN/GLOBULIN RATIO 0.35 (1.00-1.93); BILIRUBIN,TOTAL 0.5 MG/DL (0.2-1.0); MAGNESIUM LEVEL 1.8 MG/DL (1.8-2.4); TOTAL PROTEIN 4.6 GM/DL (6.4-8.2)
[2017-03-11 10:00] VITALS: BP 155/97
[2017-03-11] MEDS: VITAMIN D 1,000 INTERNATIONAL UNITS TABLET PO SCH (10:02)
[2017-03-11] MEDS: ASPIRIN 81 MG ENTERIC TAB PO SCH (10:02)
[2017-03-11] MEDS: ONDANSETRON 4 MG TAB (S0181) PO PRN (10:03)
[2017-03-11] MEDS: CREON-24 CAPSULE PO SCH (10:04)
[2017-03-11] MEDS: SPIRONOLACTONE 12.5MG PER 1/2 TABLET PO SCH (10:05)
[2017-03-11] MEDS: LACTOBACILLUS ACIDOPHILUS CAP (BACID) PO SCH ×2 (10:05→11:41)
[2017-03-11] MEDS: POTASSIUM CHLORIDE 10 MEQ SR TABLET PO SCH (10:06)
[2017-03-11] MEDS: OMEPRAZOLE 20 MG CAP PO SCH (10:07)
[2017-03-11] MEDS: MULTIVITAMINS/MINERALS THERAP 1 TAB PO SCH (10:11)
[2017-03-11] MEDS: MIDODRINE 5 MG TAB PO SCH (10:13)
[2017-03-11] MEDS: CHOLESTYRAMINE 4 GM PWD PKT PO SCH (10:13)
[2017-03-11] MEDS: DRONABINOL 2.5 MG CAP (MARINOL) PO SCH (10:14)
[2017-03-11] MEDS: MORPHINE 30 MG SA TAB PO SCH (10:16)
[2017-03-11] MEDS ORDERED: ONDA8TAB8 PO (11:15)
--- NOTE | 2017-03-11 15:31 | DSES ---
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 During his hospital stay he had significant edema which was improved with repeated infusion of albumin. He had a total of four albumin units transfused over several days on the , , , and 09 of March and in addition he had diuretic agent furosemide added to help mobilize the fluid brought into his intravascular space by the oncotic improvement offered by the albumin. This resulted in improvement in his blood chemistries albumin was 1.21 when measured today, total protein 4.6, again back to diagnosis of amyloidosis. Sodium, potassium chloride were normal. BUN 88, creatinine 1.14 on the day of discharge. Hematology showed hemoglobins ranging from 13.1-10.6 during his hospital stay with predominantly neutrophils, 70% neutrophils, white count was never elevated. Urinalysis showed 3+ protein. He does tend to be hypoglycemic with a lowest sugar recorded being 77. Nutritional challenge continues for gentleman at discharge, he is not back to normal by any means but is able tolerate enough food to be able to get by and thinks he is good enough to go home. He was not weighed daily during his hospital stay. He did have a net negative diuresis on the day before discharge, -350. Blood pressure is supported in part by Midodrine and ranges from 116/82 to 160/90. He has hold parameters for the Midodrine when his pressure is too high. Activity is limited due to general fatigue, malaise due to his chronic diagnosis of amyloidosis. At the time of his discharge his diet consists of regular diet as tolerated. Medications are ondansetron 8 mg every 6 hours as needed nausea, aspirin 81 mg daily, vitamin D3 2000 units daily, vitamin B12 1000 mcg 2000 mcg daily, dronabinol 2.5 mg twice a day, Famciclovir 250 mg twice a day, furosemide 20 mg daily as needed for edema, hydrochlorothiazide 12.5 mg daily as needed for edema, levothyroxine 125 mcg daily, Megace 20 mg twice a day, Midodrine 10 mg three times a day, mirtazapine 30 mg at bedtime, morphine sulfate 30 mg by mouth three times a day extended-release type, multivitamin one a day, omeprazole 20 mg twice a day, oxycodone 10 mg every 4 as needed pain, pancreatic enzymes Creon 24,000 2 capsules three times a day, Анна-Bid a day probiotic 1 tablet daily. Hold parameter for his Midodrine, hold if his blood pressure is greater than 140/90. The patient was discharged today with the above instructions. Activity as tolerated. Diet as noted. Followup with Dr. Triplett in 1 week. 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
== END 2017-03-11 14:52 | disposition home health service (06) | DRG 393 ==
LOC: M ED 08:35 → M ED INP 12:36 → M MSPAV 15:08 → OBSVTOIN 02-28 07:42
PROVIDERS: ADMIT Family Medicine; ATTEND Family Medicine
PROC: 30253J1 (ICD-10-PCS; principal; 2017-03-05)
DX: K63.9 Disease of intestine, unspecified (principal); E43 Unspecified severe protein-calorie malnutrition; E85.89 Other amyloidosis; E86.0 Dehydration; E87.6 Hypokalemia; I95.1 Orthostatic hypotension; D63.8 Anemia in other chronic diseases classified elsewhere; E55.9 Vitamin D deficiency, unspecified; G89.4 Chronic pain syndrome; Z79.891 Long term (current) use of opiate analgesic; Z79.899 Other long term (current) drug therapy

== ENCOUNTER 2017-04-15 09:06 | Inpatient (IN) | payer MEDICARE, BC, OTHER ==
[2017-04-15] MEDS: ENOXAPARIN 40 MG/0.4 ML SYRINGE (J1650) SC (09:00)
[2017-04-15 09:41] LABS: BEDSIDE GLUCOSE 88 MG/DL (70-105)
[2017-04-15] MEDS: NS 1,000 ML IV ×2 (09:44→11:30)
[2017-04-15 09:46] LABS: BASO # 0.1 10^3/uL (0.0-0.2); BASO % 0.8 % (0.0-1.0); EOS # 0.1 10^3/uL (0.0-0.50); EOS % 0.9 % (0.0-3.0); HEMATOCRIT 45.4 % (42.0-52.0); HEMOGLOBIN 15.1 g/dl (14.0-18.0); IMMATURE GRANULOCYTE % 0.4 % (0-0); LYMPH # 1.3 10^3/uL (1.5-4.5); LYMPH % 12.5 % (24.0-44.0); MEAN CORPUSCULAR HGB CONC 33.3 g/dl (32.0-36.5); MEAN CORPUSCULAR VOLUME 90.1 fl (80.0-96.0); MONO # 0.5 10^3/uL (0.0-0.8); MONO % 4.4 % (0.0-5.0); NEUTROPHILS # 8.5 10^3/uL (1.8-7.7); PLATELET COUNT, AUTOMATED 612 10^3/uL (150-450); RED BLOOD COUNT 5.04 10^6/uL (4.30-6.10); RED CELL DISTRIBUTION WIDTH 16.2 % (11.5-14.5); WHITE BLOOD COUNT 10.5 10^3/uL (4.0-10.0)
[2017-04-15 10:01] LABS: ANION GAP 8 MEQ/L (8-16); BLOOD UREA NITROGEN 9 MG/DL (7-18); CALCIUM LEVEL 7.1 MG/DL (8.5-10.1); CARBON DIOXIDE LEVEL 32 MEQ/L (21-32); CHLORIDE LEVEL 101 MEQ/L (98-107); CREATININE FOR GFR 0.86 MG/DL (0.70-1.30); GLOMERULAR FILTRATION RATE > 60.0 (>56); GLUCOSE, FASTING 90 MG/DL (70-105); SODIUM LEVEL 141 MEQ/L (136-145)
[2017-04-15 10:14] LABS: POTASSIUM SERUM 2.7 MEQ/L (3.5-5.1)
[2017-04-15] MEDS: POTASSIUM CHLORIDE 10 MEQ SR TABLET PO (10:24)
[2017-04-15] MEDS: MORPHINE 15 MG SA TAB PO (12:51)
[2017-04-15] MEDS: LEVOTHYROXINE 125MCG TABLET (0.125MG) PO (14:09)
[2017-04-15] MEDS: MIDODRINE 5 MG TAB PO (14:10)
[2017-04-15] MEDS ORDERED: ACETAMINOPHEN TAB 650MG DOSE (2X325MG) PO (14:30)
[2017-04-15 15:08] LABS: MAGNESIUM LEVEL 1.9 MG/DL (1.8-2.4)
[2017-04-15] MEDS: oxyCODONE 5MG TAB PO ×2 (17:11→21:43)
[2017-04-15] MEDS: CREON-24 CAPSULE PO (17:45)
[2017-04-15 19:16] LABS: TYPE AND SCREEN 1
[2017-04-15] MEDS ORDERED: ENTER DRUG NAME HERE (PATIENT'S OWN MED) PO ×2 (21:00)
[2017-04-15] MEDS: MIRTAZAPINE 15 MG TAB PO (21:18)
[2017-04-15] MEDS: MORPHINE 30 MG SA TAB PO (21:18)
[2017-04-15] MEDS: OMEPRAZOLE 20 MG CAP PO (21:18)
[2017-04-15] MEDS: MEGESTROL 40 MG TAB PO (21:19)
[2017-04-15] MEDS: LACTOBACILLUS ACIDOPHILUS CAP (BACID) PO (21:19)
[2017-04-15] MEDS: CYANOCOBALAMIN 500 MCG TAB PO (21:19)
[2017-04-15] MEDS: FAMCICLOVIR 500 MG TAB PO (21:20)
[2017-04-15] MEDS: POTASSIUM CHLORIDE 10% LIQ 20 MEQ/15 ML UDC PO (21:43)
[2017-04-16] MEDS: oxyCODONE 5MG TAB PO ×3 (01:49→17:51)
[2017-04-16] MEDS ORDERED: LEVOTHYROXINE 125MCG TABLET (0.125MG) PO (06:00)
[2017-04-16] MEDS: LEVOTHYROXINE 125MCG TABLET (0.125MG) PO (06:32)
[2017-04-16] MEDS: MORPHINE 30 MG SA TAB PO ×3 (06:33→22:02)
[2017-04-16 07:24] LABS: HEMATOCRIT 36.2 % (42.0-52.0); MEAN CORPUSCULAR HEMOGLOBIN 30.5 pg (27.0-33.0); MEAN CORPUSCULAR HGB CONC 33.7 g/dl (32.0-36.5); MEAN CORPUSCULAR VOLUME 90.5 fl (80.0-96.0); RED CELL DISTRIBUTION WIDTH 16.3 % (11.5-14.5); WHITE BLOOD COUNT 9.5 10^3/uL (4.0-10.0)
[2017-04-16 07:34] LABS: HEMOGLOBIN 12.2 g/dl (14.0-18.0); PLATELET COUNT, AUTOMATED 452 10^3/uL (150-450)
[2017-04-16 07:50] LABS: ALBUMIN 1.2 GM/DL (3.2-5.2); ALBUMIN/GLOBULIN RATIO 0.36 (1.00-1.93); ALKALINE PHOSPHATASE 381 U/L (45-117); ALT/SGPT 12 U/L (12-78); ANION GAP 5 MEQ/L (8-16); AST/SGOT 21 U/L (7-37); BILIRUBIN,TOTAL 0.6 MG/DL (0.2-1.0); BLOOD UREA NITROGEN 12 MG/DL (7-18); CALCIUM LEVEL 7.7 MG/DL (8.5-10.1); CARBON DIOXIDE LEVEL 31 MEQ/L (21-32); CHLORIDE LEVEL 104 MEQ/L (98-107); GLOMERULAR FILTRATION RATE > 60.0 (>56); GLUCOSE, FASTING 71 MG/DL (70-105); MAGNESIUM LEVEL 1.8 MG/DL (1.8-2.4); POTASSIUM SERUM 3.5 MEQ/L (3.5-5.1); PREALBUMIN 10.3 MG/DL (20.0-40.0); SODIUM LEVEL 140 MEQ/L (136-145); TOTAL PROTEIN 4.5 GM/DL (6.4-8.2)
[2017-04-16] MEDS: MULTIVITAMINS/MINERALS THERAP 1 TAB PO (09:11)
[2017-04-16] MEDS: MIDODRINE 5 MG TAB PO ×3 (09:11→16:30)
[2017-04-16] MEDS: POTASSIUM CHLORIDE 10% LIQ 20 MEQ/15 ML UDC PO ×2 (09:11→21:20)
[2017-04-16] MEDS: CREON-24 CAPSULE PO ×3 (09:11→17:50)
[2017-04-16] MEDS: ENOXAPARIN 40 MG/0.4 ML SYRINGE (J1650) SC (09:12)
[2017-04-16] MEDS: FAMCICLOVIR 500 MG TAB PO ×2 (09:12→21:19)
[2017-04-16] MEDS: MEGESTROL 40 MG TAB PO ×2 (09:12→21:19)
[2017-04-16] MEDS: OMEPRAZOLE 20 MG CAP PO ×2 (09:12→21:20)
[2017-04-16] MEDS: VITAMIN D 1,000 INTERNATIONAL UNITS TABLET PO (13:10)
[2017-04-16] MEDS: DRONABINOL 2.5 MG CAP (MARINOL) PO ×2 (14:04→17:50)
[2017-04-16] MEDS: LACTOBACILLUS ACIDOPHILUS CAP (BACID) PO (21:19)
[2017-04-16] MEDS: MIRTAZAPINE 15 MG TAB PO (21:19)
[2017-04-16] MEDS: CYANOCOBALAMIN 500 MCG TAB PO (21:20)
[2017-04-17] MEDS: oxyCODONE 5MG TAB PO ×5 (02:11→20:37)
[2017-04-17] MEDS: MORPHINE 30 MG SA TAB PO ×3 (06:01→21:33)
[2017-04-17] MEDS: LEVOTHYROXINE 125MCG TABLET (0.125MG) PO (06:01)
[2017-04-17 06:15] LABS: BASO % 0.4 % (0.0-1.0); EOS % 0.4 % (0.0-3.0); HEMATOCRIT 35.6 % (42.0-52.0); HEMOGLOBIN 11.9 g/dl (14.0-18.0); IMMATURE GRANULOCYTE # 0.1 10^3/uL (0-0); IMMATURE GRANULOCYTE % 0.5 % (0-0); LYMPH # 1.4 10^3/uL (1.5-4.5); LYMPH % 13.2 % (24.0-44.0); MEAN CORPUSCULAR HEMOGLOBIN 30.2 pg (27.0-33.0); MEAN CORPUSCULAR HGB CONC 33.4 g/dl (32.0-36.5); MEAN CORPUSCULAR VOLUME 90.4 fl (80.0-96.0); MONO # 0.7 10^3/uL (0.0-0.8); MONO % 6.9 % (0.0-5.0); NEUTROPHILS # 8.4 10^3/uL (1.8-7.7); NEUTROPHILS % 78.6 % (36.0-66.0); PLATELET COUNT, AUTOMATED 464 10^3/uL (150-450); RED BLOOD COUNT 3.94 10^6/uL (4.30-6.10); WHITE BLOOD COUNT 10.7 10^3/uL (4.0-10.0)
[2017-04-17] MEDS: ONDANSETRON 4 MG TAB (S0181) PO (06:29)
[2017-04-17 06:49] LABS: ALBUMIN 1.3 GM/DL (3.2-5.2); ALBUMIN/GLOBULIN RATIO 0.39 (1.00-1.93); ALKALINE PHOSPHATASE 382 U/L (45-117); ALT/SGPT 13 U/L (12-78); ANION GAP 7 MEQ/L (8-16); AST/SGOT 24 U/L (7-37); BILIRUBIN,TOTAL 0.5 MG/DL (0.2-1.0); BLOOD UREA NITROGEN 13 MG/DL (7-18); CALCIUM LEVEL 7.7 MG/DL (8.5-10.1); CARBON DIOXIDE LEVEL 31 MEQ/L (21-32); CHLORIDE LEVEL 102 MEQ/L (98-107); CREATININE FOR GFR 0.93 MG/DL (0.70-1.30); GLOMERULAR FILTRATION RATE > 60.0 (>56); GLUCOSE, FASTING 82 MG/DL (70-105); POTASSIUM SERUM 3.6 MEQ/L (3.5-5.1); SODIUM LEVEL 140 MEQ/L (136-145); TOTAL PROTEIN 4.6 GM/DL (6.4-8.2)
[2017-04-17] MEDS: MIDODRINE 5 MG TAB PO ×3 (09:08→16:29)
[2017-04-17] MEDS: OMEPRAZOLE 20 MG CAP PO ×2 (09:08→20:36)
[2017-04-17] MEDS: MULTIVITAMINS/MINERALS THERAP 1 TAB PO (09:08)
[2017-04-17] MEDS: CREON-24 CAPSULE PO ×3 (09:08→17:17)
[2017-04-17] MEDS: FAMCICLOVIR 500 MG TAB PO ×2 (09:08→20:36)
[2017-04-17] MEDS: MEGESTROL 40 MG TAB PO ×2 (09:09→20:34)
[2017-04-17] MEDS: POTASSIUM CHLORIDE 10% LIQ 20 MEQ/15 ML UDC PO ×2 (09:09→20:36)
[2017-04-17] MEDS: ENOXAPARIN 40 MG/0.4 ML SYRINGE (J1650) SC (09:09)
[2017-04-17] MEDS: DRONABINOL 2.5 MG CAP (MARINOL) PO ×2 (11:36→17:17)
[2017-04-17] MEDS: VITAMIN D 1,000 INTERNATIONAL UNITS TABLET PO (11:36)
[2017-04-17] MEDS: LOPERAMIDE 2 MG CAP PO ×2 (11:37→15:07)
[2017-04-17] MEDS: CYANOCOBALAMIN 500 MCG TAB PO (20:34)
[2017-04-17] MEDS: LACTOBACILLUS ACIDOPHILUS CAP (BACID) PO (20:35)
[2017-04-17] MEDS: MIRTAZAPINE 15 MG TAB PO (21:33)
[2017-04-18] MEDS: oxyCODONE 5MG TAB PO ×2 (02:22→09:48)
[2017-04-18] MEDS: MORPHINE 30 MG SA TAB PO ×3 (05:55→21:32)
[2017-04-18] MEDS: LEVOTHYROXINE 125MCG TABLET (0.125MG) PO (05:56)
[2017-04-18 06:13] LABS: BASO # 0.1 10^3/uL (0.0-0.2); BASO % 0.5 % (0.0-1.0); EOS # 0.1 10^3/uL (0.0-0.50); HEMOGLOBIN 12.2 g/dl (14.0-18.0); IMMATURE GRANULOCYTE % 0.4 % (0-0); LYMPH # 1.5 10^3/uL (1.5-4.5); LYMPH % 16.2 % (24.0-44.0); MEAN CORPUSCULAR HEMOGLOBIN 30.1 pg (27.0-33.0); MEAN CORPUSCULAR HGB CONC 33.9 g/dl (32.0-36.5); MEAN CORPUSCULAR VOLUME 88.9 fl (80.0-96.0); MONO # 0.6 10^3/uL (0.0-0.8); MONO % 6.3 % (0.0-5.0); NEUTROPHILS # 7.1 10^3/uL (1.8-7.7); NEUTROPHILS % 75.6 % (36.0-66.0); PLATELET COUNT, AUTOMATED 459 10^3/uL (150-450); RED BLOOD COUNT 4.05 10^6/uL (4.30-6.10); RED CELL DISTRIBUTION WIDTH 15.9 % (11.5-14.5); WHITE BLOOD COUNT 9.3 10^3/uL (4.0-10.0)
[2017-04-18 06:38] LABS: ALBUMIN 1.2 GM/DL (3.2-5.2); ALBUMIN/GLOBULIN RATIO 0.38 (1.00-1.93); ALKALINE PHOSPHATASE 360 U/L (45-117); ALT/SGPT 14 U/L (12-78); ANION GAP 5 MEQ/L (8-16); AST/SGOT 25 U/L (7-37); BILIRUBIN,TOTAL 0.4 MG/DL (0.2-1.0); BLOOD UREA NITROGEN 15 MG/DL (7-18); CALCIUM LEVEL 7.5 MG/DL (8.5-10.1); CARBON DIOXIDE LEVEL 29 MEQ/L (21-32); CHLORIDE LEVEL 103 MEQ/L (98-107); CREATININE FOR GFR 0.86 MG/DL (0.70-1.30); GLOMERULAR FILTRATION RATE > 60.0 (>56); GLUCOSE, FASTING 73 MG/DL (70-105); POTASSIUM SERUM 4.1 MEQ/L (3.5-5.1); SODIUM LEVEL 137 MEQ/L (136-145); TOTAL PROTEIN 4.4 GM/DL (6.4-8.2)
[2017-04-18] MEDS: MULTIVITAMINS/MINERALS THERAP 1 TAB PO (08:13)
[2017-04-18] MEDS: CREON-24 CAPSULE PO ×3 (08:13→17:35)
[2017-04-18] MEDS: FAMCICLOVIR 500 MG TAB PO ×2 (08:13→21:31)
[2017-04-18] MEDS: MIDODRINE 5 MG TAB PO ×3 (08:13→15:38)
[2017-04-18] MEDS: MEGESTROL 40 MG TAB PO ×2 (08:13→21:32)
[2017-04-18] MEDS: POTASSIUM CHLORIDE 10% LIQ 20 MEQ/15 ML UDC PO ×2 (08:14→21:31)
[2017-04-18] MEDS: ENOXAPARIN 40 MG/0.4 ML SYRINGE (J1650) SC ×2 (08:14→09:00)
[2017-04-18] MEDS: OMEPRAZOLE 20 MG CAP PO ×2 (08:14→21:31)
[2017-04-18] MEDS: DRONABINOL 2.5 MG CAP (MARINOL) PO ×2 (12:20→17:35)
[2017-04-18] MEDS: VITAMIN D 1,000 INTERNATIONAL UNITS TABLET PO (12:21)
[2017-04-18] MEDS: ONDANSETRON 4 MG TAB (S0181) PO (13:53)
[2017-04-18] MEDS: CYANOCOBALAMIN 500 MCG TAB PO (21:31)
[2017-04-18] MEDS: MIRTAZAPINE 15 MG TAB PO (21:31)
[2017-04-18] MEDS: LACTOBACILLUS ACIDOPHILUS CAP (BACID) PO (21:31)
[2017-04-19] MEDS: oxyCODONE 5MG TAB PO ×2 (02:33→11:39)
[2017-04-19 06:07] LABS: BASO % 0.4 % (0.0-1.0); EOS # 0.1 10^3/uL (0.0-0.50); EOS % 1.2 % (0.0-3.0); HEMATOCRIT 32.4 % (42.0-52.0); HEMOGLOBIN 10.7 g/dl (14.0-18.0); IMMATURE GRANULOCYTE % 0.4 % (0-0); LYMPH # 1.4 10^3/uL (1.5-4.5); LYMPH % 16.5 % (24.0-44.0); MEAN CORPUSCULAR VOLUME 90.8 fl (80.0-96.0); MONO # 0.6 10^3/uL (0.0-0.8); MONO % 7.2 % (0.0-5.0); NEUTROPHILS # 6.2 10^3/uL (1.8-7.7); NEUTROPHILS % 74.3 % (36.0-66.0); PLATELET COUNT, AUTOMATED 421 10^3/uL (150-450); RED BLOOD COUNT 3.57 10^6/uL (4.30-6.10); RED CELL DISTRIBUTION WIDTH 15.9 % (11.5-14.5); WHITE BLOOD COUNT 8.4 10^3/uL (4.0-10.0)
[2017-04-19 06:26] LABS: ALBUMIN 1.1 GM/DL (3.2-5.2); ALBUMIN/GLOBULIN RATIO 0.38 (1.00-1.93); ALKALINE PHOSPHATASE 336 U/L (45-117); ALT/SGPT 16 U/L (12-78); ANION GAP 4 MEQ/L (8-16); AST/SGOT 23 U/L (7-37); BILIRUBIN,TOTAL 0.3 MG/DL (0.2-1.0); BLOOD UREA NITROGEN 14 MG/DL (7-18); CALCIUM LEVEL 7.2 MG/DL (8.5-10.1); CARBON DIOXIDE LEVEL 31 MEQ/L (21-32); CHLORIDE LEVEL 102 MEQ/L (98-107); CREATININE FOR GFR 0.82 MG/DL (0.70-1.30); GLOMERULAR FILTRATION RATE > 60.0 (>56); GLUCOSE, FASTING 74 MG/DL (70-105); POTASSIUM SERUM 4.2 MEQ/L (3.5-5.1); SODIUM LEVEL 137 MEQ/L (136-145)
[2017-04-19] MEDS: LEVOTHYROXINE 125MCG TABLET (0.125MG) PO (06:47)
[2017-04-19] MEDS: MORPHINE 30 MG SA TAB PO ×3 (06:47→21:29)
[2017-04-19] MEDS: ONDANSETRON 4 MG TAB (S0181) PO (06:48)
[2017-04-19] MEDS: MIDODRINE 5 MG TAB PO ×3 (08:28→16:57)
[2017-04-19] MEDS: OMEPRAZOLE 20 MG CAP PO ×2 (08:28→20:07)
[2017-04-19] MEDS: MEGESTROL 40 MG TAB PO ×2 (08:28→20:06)
[2017-04-19] MEDS: FAMCICLOVIR 500 MG TAB PO ×2 (08:28→20:06)
[2017-04-19] MEDS: CREON-24 CAPSULE PO ×3 (08:28→16:57)
[2017-04-19] MEDS: ENOXAPARIN 40 MG/0.4 ML SYRINGE (J1650) SC (08:29)
[2017-04-19] MEDS: MULTIVITAMINS/MINERALS THERAP 1 TAB PO (08:29)
[2017-04-19] MEDS: POTASSIUM CHLORIDE 10% LIQ 20 MEQ/15 ML UDC PO ×2 (08:29→20:04)
[2017-04-19] MEDS: DRONABINOL 2.5 MG CAP (MARINOL) PO ×2 (11:38→16:57)
[2017-04-19] MEDS: VITAMIN D 1,000 INTERNATIONAL UNITS TABLET PO (11:38)
[2017-04-19 17:40] LABS: TYPE AND SCREEN 1
[2017-04-19] MEDS: CYANOCOBALAMIN 500 MCG TAB PO (20:04)
[2017-04-19] MEDS: LACTOBACILLUS ACIDOPHILUS CAP (BACID) PO (20:07)
[2017-04-19] MEDS: MIRTAZAPINE 15 MG TAB PO (21:28)
[2017-04-20] MEDS: oxyCODONE 5MG TAB PO ×2 (01:44→11:45)
[2017-04-20] MEDS: MORPHINE 30 MG SA TAB PO ×3 (05:46→21:37)
[2017-04-20] MEDS: LEVOTHYROXINE 125MCG TABLET (0.125MG) PO (05:46)
[2017-04-20 06:10] LABS: BASO # 0.1 10^3/uL (0.0-0.2); BASO % 0.6 % (0.0-1.0); EOS # 0.1 10^3/uL (0.0-0.50); HEMATOCRIT 33.5 % (42.0-52.0); IMMATURE GRANULOCYTE % 0.4 % (0-0); LYMPH # 1.3 10^3/uL (1.5-4.5); LYMPH % 15.4 % (24.0-44.0); MEAN CORPUSCULAR HEMOGLOBIN 30.2 pg (27.0-33.0); MEAN CORPUSCULAR HGB CONC 32.8 g/dl (32.0-36.5); MONO # 0.5 10^3/uL (0.0-0.8); MONO % 6.1 % (0.0-5.0); NEUTROPHILS # 6.3 10^3/uL (1.8-7.7); NEUTROPHILS % 76.5 % (36.0-66.0); PLATELET COUNT, AUTOMATED 414 10^3/uL (150-450); RED BLOOD COUNT 3.64 10^6/uL (4.30-6.10); RED CELL DISTRIBUTION WIDTH 16.1 % (11.5-14.5); WHITE BLOOD COUNT 8.2 10^3/uL (4.0-10.0)
[2017-04-20 06:37] LABS: ALBUMIN 1.3 GM/DL (3.2-5.2); ALBUMIN/GLOBULIN RATIO 0.43 (1.00-1.93); ALKALINE PHOSPHATASE 330 U/L (45-117); ALT/SGPT 12 U/L (12-78); ANION GAP 6 MEQ/L (8-16); AST/SGOT 26 U/L (7-37); BILIRUBIN,TOTAL 0.4 MG/DL (0.2-1.0); BLOOD UREA NITROGEN 13 MG/DL (7-18); CALCIUM LEVEL 7.4 MG/DL (8.5-10.1); CARBON DIOXIDE LEVEL 29 MEQ/L (21-32); CHLORIDE LEVEL 103 MEQ/L (98-107); GLOMERULAR FILTRATION RATE > 60.0 (>56); GLUCOSE, FASTING 64 MG/DL (70-105); POTASSIUM SERUM 4.7 MEQ/L (3.5-5.1); SODIUM LEVEL 138 MEQ/L (136-145); TOTAL PROTEIN 4.3 GM/DL (6.4-8.2)
[2017-04-20] MEDS: MULTIVITAMINS/MINERALS THERAP 1 TAB PO (08:33)
[2017-04-20] MEDS: CREON-24 CAPSULE PO ×3 (08:33→17:20)
[2017-04-20] MEDS: OMEPRAZOLE 20 MG CAP PO ×2 (08:33→21:36)
[2017-04-20] MEDS: MEGESTROL 40 MG TAB PO ×2 (08:33→21:45)
[2017-04-20] MEDS: FAMCICLOVIR 500 MG TAB PO ×2 (08:33→21:45)
[2017-04-20] MEDS: ENOXAPARIN 40 MG/0.4 ML SYRINGE (J1650) SC (08:34)
[2017-04-20] MEDS: POTASSIUM CHLORIDE 10% LIQ 20 MEQ/15 ML UDC PO ×2 (08:34→21:35)
[2017-04-20] MEDS: MIDODRINE 5 MG TAB PO ×3 (08:34→15:02)
[2017-04-20] MEDS: VITAMIN D 1,000 INTERNATIONAL UNITS TABLET PO (11:41)
[2017-04-20] MEDS: DRONABINOL 2.5 MG CAP (MARINOL) PO ×2 (11:41→17:20)
[2017-04-20 18:48] LABS: TYPE AND SCREEN 1
[2017-04-20] MEDS: CYANOCOBALAMIN 500 MCG TAB PO (21:35)
[2017-04-20] MEDS: MIRTAZAPINE 15 MG TAB PO (21:36)
[2017-04-20] MEDS: LACTOBACILLUS ACIDOPHILUS CAP (BACID) PO (21:36)
[2017-04-21] MEDS: oxyCODONE 5MG TAB PO ×2 (03:59→10:04)
[2017-04-21 05:36] LABS: BASO # 0.1 10^3/uL (0.0-0.2); BASO % 0.6 % (0.0-1.0); EOS # 0.1 10^3/uL (0.0-0.50); EOS % 0.9 % (0.0-3.0); HEMATOCRIT 32.4 % (42.0-52.0); HEMOGLOBIN 10.7 g/dl (14.0-18.0); IMMATURE GRANULOCYTE % 0.4 % (0-0); LYMPH # 1.1 10^3/uL (1.5-4.5); LYMPH % 11.5 % (24.0-44.0); MEAN CORPUSCULAR HEMOGLOBIN 29.8 pg (27.0-33.0); MEAN CORPUSCULAR VOLUME 90.3 fl (80.0-96.0); MONO # 0.5 10^3/uL (0.0-0.8); MONO % 4.9 % (0.0-5.0); NEUTROPHILS % 81.7 % (36.0-66.0); PLATELET COUNT, AUTOMATED 450 10^3/uL (150-450); RED BLOOD COUNT 3.59 10^6/uL (4.30-6.10); WHITE BLOOD COUNT 9.8 10^3/uL (4.0-10.0)
[2017-04-21] MEDS: LEVOTHYROXINE 125MCG TABLET (0.125MG) PO (05:52)
[2017-04-21] MEDS: MORPHINE 30 MG SA TAB PO ×3 (05:53→21:56)
[2017-04-21 05:55] LABS: ALBUMIN 1.4 GM/DL (3.2-5.2); ALKALINE PHOSPHATASE 310 U/L (45-117); ALT/SGPT 14 U/L (12-78); ANION GAP 3 MEQ/L (8-16); AST/SGOT 23 U/L (7-37); BILIRUBIN,TOTAL 0.4 MG/DL (0.2-1.0); BLOOD UREA NITROGEN 13 MG/DL (7-18); CARBON DIOXIDE LEVEL 32 MEQ/L (21-32); CHLORIDE LEVEL 103 MEQ/L (98-107); CREATININE FOR GFR 0.95 MG/DL (0.70-1.30); GLOMERULAR FILTRATION RATE > 60.0 (>56); GLUCOSE, FASTING 73 MG/DL (70-105); SODIUM LEVEL 138 MEQ/L (136-145); TOTAL PROTEIN 4.2 GM/DL (6.4-8.2)
[2017-04-21 05:58] LABS: POTASSIUM SERUM 5.4 MEQ/L (3.5-5.1)
[2017-04-21] MEDS: FAMCICLOVIR 500 MG TAB PO ×2 (07:57→21:55)
[2017-04-21] MEDS: ENOXAPARIN 40 MG/0.4 ML SYRINGE (J1650) SC ×2 (07:57→08:02)
[2017-04-21] MEDS: MULTIVITAMINS/MINERALS THERAP 1 TAB PO (07:57)
[2017-04-21] MEDS: MIDODRINE 5 MG TAB PO ×3 (07:58→16:16)
[2017-04-21] MEDS: MEGESTROL 40 MG TAB PO ×2 (07:58→21:56)
[2017-04-21] MEDS: CREON-24 CAPSULE PO ×3 (07:58→17:42)
[2017-04-21] MEDS: OMEPRAZOLE 20 MG CAP PO ×2 (07:58→21:56)
[2017-04-21] MEDS: POTASSIUM CHLORIDE 10% LIQ 20 MEQ/15 ML UDC PO ×2 (09:00→21:57)
[2017-04-21] MEDS: ONDANSETRON 4 MG TAB (S0181) PO (10:03)
[2017-04-21] MEDS: DRONABINOL 2.5 MG CAP (MARINOL) PO ×2 (11:39→16:16)
[2017-04-21] MEDS: VITAMIN D 1,000 INTERNATIONAL UNITS TABLET PO (11:39)
[2017-04-21] MEDS: LACTOBACILLUS ACIDOPHILUS CAP (BACID) PO (21:56)
[2017-04-21] MEDS: MIRTAZAPINE 15 MG TAB PO (21:56)
[2017-04-21] MEDS: CYANOCOBALAMIN 500 MCG TAB PO (21:57)
[2017-04-22] MEDS: oxyCODONE 5MG TAB PO (04:07)
[2017-04-22] MEDS: LEVOTHYROXINE 125MCG TABLET (0.125MG) PO (05:55)
[2017-04-22] MEDS: MORPHINE 30 MG SA TAB PO ×2 (05:56→13:52)
[2017-04-22 06:19] LABS: BASO % 0.5 % (0.0-1.0); EOS # 0.1 10^3/uL (0.0-0.50); EOS % 1.3 % (0.0-3.0); HEMATOCRIT 32.1 % (42.0-52.0); HEMOGLOBIN 10.6 g/dl (14.0-18.0); IMMATURE GRANULOCYTE % 0.3 % (0-0); LYMPH # 1.1 10^3/uL (1.5-4.5); LYMPH % 12.1 % (24.0-44.0); MEAN CORPUSCULAR HEMOGLOBIN 29.8 pg (27.0-33.0); MEAN CORPUSCULAR VOLUME 90.2 fl (80.0-96.0); MONO # 0.5 10^3/uL (0.0-0.8); MONO % 6.1 % (0.0-5.0); NEUTROPHILS # 6.9 10^3/uL (1.8-7.7); NEUTROPHILS % 79.7 % (36.0-66.0); PLATELET COUNT, AUTOMATED 443 10^3/uL (150-450); RED BLOOD COUNT 3.56 10^6/uL (4.30-6.10); RED CELL DISTRIBUTION WIDTH 15.8 % (11.5-14.5); WHITE BLOOD COUNT 8.7 10^3/uL (4.0-10.0)
[2017-04-22 06:36] LABS: ALBUMIN 1.2 GM/DL (3.2-5.2); ALBUMIN/GLOBULIN RATIO 0.41 (1.00-1.93); ALKALINE PHOSPHATASE 301 U/L (45-117); ALT/SGPT 13 U/L (12-78); ANION GAP 6 MEQ/L (8-16); AST/SGOT 23 U/L (7-37); BILIRUBIN,TOTAL 0.4 MG/DL (0.2-1.0); BLOOD UREA NITROGEN 12 MG/DL (7-18); CALCIUM LEVEL 7.4 MG/DL (8.5-10.1); CARBON DIOXIDE LEVEL 29 MEQ/L (21-32); CHLORIDE LEVEL 102 MEQ/L (98-107); CREATININE FOR GFR 0.82 MG/DL (0.70-1.30); GLOMERULAR FILTRATION RATE > 60.0 (>56); GLUCOSE, FASTING 64 MG/DL (70-105); POTASSIUM SERUM 4.7 MEQ/L (3.5-5.1); SODIUM LEVEL 137 MEQ/L (136-145); TOTAL PROTEIN 4.1 GM/DL (6.4-8.2)
[2017-04-22] MEDS: MIDODRINE 5 MG TAB PO ×3 (08:20→15:31)
[2017-04-22] MEDS: CREON-24 CAPSULE PO ×2 (08:20→11:29)
[2017-04-22] MEDS: MULTIVITAMINS/MINERALS THERAP 1 TAB PO (08:21)
[2017-04-22] MEDS: OMEPRAZOLE 20 MG CAP PO (08:21)
[2017-04-22] MEDS: FAMCICLOVIR 500 MG TAB PO (08:21)
[2017-04-22] MEDS: POTASSIUM CHLORIDE 10% LIQ 20 MEQ/15 ML UDC PO (08:21)
[2017-04-22] MEDS: MEGESTROL 40 MG TAB PO (08:21)
[2017-04-22] MEDS: ENOXAPARIN 40 MG/0.4 ML SYRINGE (J1650) SC (08:21)
[2017-04-22] MEDS: VITAMIN D 1,000 INTERNATIONAL UNITS TABLET PO (11:29)
[2017-04-22] MEDS: DRONABINOL 2.5 MG CAP (MARINOL) PO (11:29)
[2017-04-22] MEDS: ONDANSETRON 4 MG TAB (S0181) PO (15:32)
== END 2017-04-22 17:17 | disposition home health service (06) | DRG 545 ==
LOC: M MSPAV 04-16 13:52 → M ED 09:06 → M ED INP 14:30
PROVIDERS: Family Medicine
PROC: 30233J1 Transfusion of Nonautologous Serum Albumin into Peripheral Vein, Percutaneous Approach (ICD-10-PCS; principal; 2017-04-15)
DX: E85.9 Amyloidosis, unspecified (principal); E43 Unspecified severe protein-calorie malnutrition; K90.9 Intestinal malabsorption, unspecified; E86.0 Dehydration; I95.1 Orthostatic hypotension; L89.152 Pressure ulcer of sacral region, stage 2; Z79.82 Long term (current) use of aspirin; Z79.891 Long term (current) use of opiate analgesic; Z79.899 Other long term (current) drug therapy